=== PATIENT | male | born 1940 | race Caucasian/White ===

== ENCOUNTER 2017-06-03 12:25 | Inpatient (IN) | payer MEDICARE, MEDICAID, SELFPAY | END 2017-06-15 09:10 | disposition home or self-care (01) | DRG 414 | PROVIDERS: Admitting Provider Family Medicine; Family Provider Family Medicine; Visit Provider Family Medicine | DX: K80.63 Calculus of gallbladder and bile duct with acute cholecystitis with obstruction (principal); J18.9 Pneumonia, unspecified organism; I48.91 Unspecified atrial fibrillation; I49.5 Sick sinus syndrome; Z99.81 Dependence on supplemental oxygen; J44.0 Chronic obstructive pulmonary disease with (acute) lower respiratory infection; J44.9 Chronic obstructive pulmonary disease, unspecified; K42.9 Umbilical hernia without obstruction or gangrene; I10 Essential (primary) hypertension; Z95.0 Presence of cardiac pacemaker; I25.10 Atherosclerotic heart disease of native coronary artery without angina pectoris; Z87.891 Personal history of nicotine dependence | CPT/HCPCS: 49585; 47600; 43274; 36415; 71010; 71020; 74330; 76700; 80048; 80053; 80076; 82803; 85025; 85610; 87070; 87077; 87186; 87205; 88304; 94640; 94660; 94760; 97162; C2617; J0131; J1335; J2405; J2704; Q9967 ==

== ENCOUNTER → 2017-06-25 10:27 | Outpatient (CLI) | payer MEDICARE, MEDICAID, SELFPAY ==
[2017-06-25 10:52] LABS: Basophils # 0.2 K/mm3 (0-0.2); Basophils % 1.3 % (0.1-2.0); Eosinophils # 0.9 K/mm3 (0.0-0.4); Eosinophils % 5.6 % (0.1-12.0); Hematocrit 43.7 % (42.0-52.0); Hemoglobin 13.7 g/dL (14.1-18.0); Lymphocytes # 4.1 K/mm3 (0.7-4.5); Lymphocytes % 25.7 K/mm3 (10-50); Mean Corpuscular HGB Conc 31.3 g/dL (31.8-35.4); Mean Corpuscular Hemoglobin 27.2 pg (27.0-31.2); Mean Platelet Volume 9.2 fl (7.4-10.4); Monocytes # 0.8 K/mm3 (0.1-1.0); Monocytes % 4.8 % (1.7-9.3); Neutrophils # 9.9 K/mm3 (1.8-7.8); Neutrophils % 62.5 % (37.0-80.0); Platelet Count 264 K/mm3 (142-424); Red Blood Count 5.02 M/mm3 (4.60-6.20); Red Cell Distribution Width 18.8 % (11.5-17.5); White Blood Count 15.8 K/mm3 (4.8-10.8)
[2017-06-25 11:09] LABS: MANUAL DIFFERENTIAL MANUAL DIFFERENTIAL (MANUAL DIFF)
[2017-06-25 11:51] LABS: Eosinophils % 2 % (0-3); Lymphocytes % 13 % (10-50); Monocytes % 5 % (2-9); Neutrophils % 73 % (42-76); Total Cells Counted 100
[2017-06-25 11:52] LABS: Platelet Estimate Normal; RBC Morphology Normal
[2017-06-25 12:19] LABS: Alanine Aminotransferase 62 U/L (12-78); Albumin/Globulin Ratio 0.7 (1.1-1.8); Alkaline Phosphatase 206 U/L (46-116); Anion Gap 12.4 mEq/L (5-15); Bilirubin,Total 1.3 mg/dL (0.2-1.0); Blood Urea Nitrogen 15 mg/dL (7-18); Calcium 8.3 mg/dL (8.5-10.1); Carbon Dioxide 28 mmol/L (21.0-32.0); Chloride 102 mmol/L (98-107); Creatinine,Serum 1.28 mg/dL (0.70-1.30); Estimated Glomerular Filt Rate 55 ml/min (>60); GFR (African American) > 60 ML/MIN (>60); Globulin 4.3 gm/dl (1.3-3.2); Glucose 110 mg/dL (74-106); Sodium 137 mmol/L (136-145); Total Protein,Serum 7.3 gm/dL (6.4-8.2)
[2017-06-25 12:26] LABS: Potassium 5.4 mmoL/L (3.5-5.1)
[2017-06-25 12:27] LABS: Aspartate Amino Transferase 55 U/L (15-37)
== END ==
PROVIDERS: PCP Family Medicine; Visit Provider Surgery
DX: K80.10 Calculus of gallbladder with chronic cholecystitis without obstruction (principal); K80.50 Calculus of bile duct without cholangitis or cholecystitis without obstruction
CPT/HCPCS: 80053; 85007; 85025

== ENCOUNTER 2017-06-25 13:03 | Observation (INO) | payer MEDICARE, MEDICAID, SELFPAY ==
[2017-06-25 13:10] VITALS: BP 116/55; PULSE 72; RESP 16; TEMP 36.8; O2SAT 98; BMI 23.4
--- NOTE | 2017-06-25 13:36 | XR_ITS ---
XR chest CHP 2V HISTORY: ITS.REASON: COUGH ORDERING PHYSICIAN: Rakesh Watkins MD PATIENT AGE: 76 years COMPARISON: 06/12/2017 FINDINGS: Pacemaker device remains in place. There is normal heart size. There remains bilateral lower lobe opacification consistent with chronic changes with bilateral lower lobe pneumonia. This has shown some slight improvement. There remains bilateral pleural thickening in the lower lung zones. There is slight reversal of the lower thoracic kyphosis. IMPRESSION: Slight improvement in the bilateral lower lobe pneumonia with superimposed chronic pleural parenchymal changes
--- NOTE | 2017-06-25 14:41 | HMH.EDGENADL ---
ED Disposition Clinical Impression: Dehydration Disposition: Admitted as Observation Condition on Discharge: Fair Referrals: Sharan Tariq MD [Primary Care Provider] - Time of Disposition: 16:27 - Critical Care Critical Care Time: No Attestation: On 06/25/17, the high probability of a clinically significant, sudden or life threatening deterioration of the following system(s) required my full and direct attention, intervention and personal management. The time I documented below is in addition to time spent performing reported procedures but includes the following listed in this critical care notation. Medical Decision Making - Medical Records Medical records reviewed: Yes: I reviewed the patient's medical records. Vital Signs: 06/25/17 13:10 Temperature 98.2 F Temperature Source Oral Pulse Rate [Left Brachial] 72 Respiratory Rate 16 Blood Pressure [Left Arm] 116/55 Blood Pressure Mean [Left Arm] 75 Blood Pressure Source [Left Arm] Automatic Cuff Blood Pressure Position [Left Arm] Sitting 02 Sat by Pulse Oximetry 98 Oxygen Delivery Method Room Air - Lab Data Lab results reviewed: Yes: I reviewed the patient's lab results. Lab Results 06/25/17 13:18: Influenza Type A Ag Negative, Influenza Type B Ag Negative 06/25/17 15:38: WBC 16.1 H, RBC 4.79, Hgb 12.9 L, Hct 41.8 L, MCV 87.3, MCH 26.9 L, MCHC 30.8 L, RDW 19.0 H, Plt Count 226, MPV 9.3, Neut % (Auto) 59.5, Lymph % (Auto) 31.3, Lares % (Auto) 3.4, Eos % (Auto) 4.6, Baso % (Auto) 1.2, Neut # (Auto) 9.6 H, Lymph # (Auto) 5.0 H, Lares # (Auto) 0.6, Eos # (Auto) 0.8 H, Baso # (Auto) 0.2 06/25/17 15:38: Sodium 136, Potassium 4.3 D, Chloride 102, Carbon Dioxide 27, Anion Gap 11.3, BUN 17, Creatinine 1.39 H, Estimated Creat Clear 51, Estimated GFR 50 L, Est GFR ( Amer) 60, Glucose 134 H D, Calcium 8.2 L, Total Bilirubin 1.1 H, AST 38 H D, ALT 52, Alkaline Phosphatase 183 H, Total Protein 7.0, Albumin 2.7 L, Globulin 4.3 H, Albumin/Globulin Ratio 0.6 L 06/25/17 15:55: Specimen Source Right radial, O2 % Ra, ABG pH 7.41, ABG pCO2 37.4, ABG pO2 69.2 L, ABG HCO3 23.1, ABG Total CO2 24.2, ABG O2 Saturation 94, ABG Base Excess -1.6, Tera Test Acceptable Result diagrams: 06/25/17 15:38 06/25/17 15:38 Orders (Tests/Meds): ED MEDICATIONS Discontinued Medications Generic Name Dose Route Start Last Admin Trade Name Freq PRN Reason Stop Dose Admin Albuterol/Ipratropium 3 ml 06/25/17 14:50 Duoneb 3ml Neb IH 06/25/17 14:51 ONCE ONE Sodium Chloride 1,000 mls @ 999 mls/hr 06/25/17 15:00 06/25/17 16:22 Sod Chloride 0.9% 1000ml Bag IV 06/25/17 16:00 999 mls/hr .Q1H1M PATRICK Administration Methylprednisolone Sodium Succinate 125 mg 06/25/17 14:51 Solu-Medrol 125mg/2ml Vial IV 06/25/17 14:52 ONCE ONE ORDERS Category Date Time Status Rapid Influenza A&B Antigens Stat Lab 06/25/17 14:50 Ordered Arterial Blood Gas Stat RT 06/25/17 14:50 Ordered - Radiology Data #1 Image(s): Chest Image Reviewed: Yes I discussed the image results w/the radiologist - Huber Inquiry Pt receiving controlled substance: No Huber was queried for this patient: No General Adult HPI - General Chief complaint: Weakness Stated complaint: dizzy weak Time Seen by Provider: 06/25/17 14:40 Mode of Arrival: Wheelchair Source of Information: Patient Limitations: No Limitations Description of Symptoms (Recalled from ER Triage Doc. by RN): chilling,weakness, no strength since this morning - History of Present Illness HPI narrative: Pt has a history of COPD and is on Home O2, Nebs and inhalers. He had his GB removed laparascopically about 2 weeks ago and over the past 2 days he has been feeling weak and dizzy and having chills but no vomiting or diarrhea and no worsening abd pain MD complaint: weak, dizzy, SOA and no appetite Onset (ago): day(s) Location: chest, abdomen Radiation: non-radiation Severity: moderate Julissa
--- NOTE | 2017-06-25 14:45 | ED_ITS ---
ED Disposition Clinical Impression: Dehydration Disposition: Admitted as Observation Condition on Discharge: Fair Referrals: Sharan Tariq MD [Primary Care Provider] - Time of Disposition: 16:27 - Critical Care Critical Care Time: No Attestation: On 06/25/17, the high probability of a clinically significant, sudden or life threatening deterioration of the following system(s) required my full and direct attention, intervention and personal management. The time I documented below is in addition to time spent performing reported procedures but includes the following listed in this critical care notation. Medical Decision Making - Medical Records Medical records reviewed: Yes: I reviewed the patient's medical records. Vital Signs: 06/25/17 13:10 Temperature 98.2 F Temperature Source Oral Pulse Rate [Left Brachial] 72 Respiratory Rate 16 Blood Pressure [Left Arm] 116/55 Blood Pressure Mean [Left Arm] 75 Blood Pressure Source [Left Arm] Automatic Cuff Blood Pressure Position [Left Arm] Sitting 02 Sat by Pulse Oximetry 98 Oxygen Delivery Method Room Air - Lab Data Lab results reviewed: Yes: I reviewed the patient's lab results. Lab Results 06/25/17 13:18: Influenza Type A Ag Negative, Influenza Type B Ag Negative 06/25/17 15:38: WBC 16.1 H, RBC 4.79, Hgb 12.9 L, Hct 41.8 L, MCV 87.3, MCH 26.9 L, MCHC 30.8 L, RDW 19.0 H, Plt Count 226, MPV 9.3, Neut % (Auto) 59.5, Lymph % (Auto) 31.3, Ward % (Auto) 3.4, Eos % (Auto) 4.6, Baso % (Auto) 1.2, Neut # (Auto) 9.6 H, Lymph # (Auto) 5.0 H, Ward # (Auto) 0.6, Eos # (Auto) 0.8 H , Baso # (Auto) 0.2 06/25/17 15:38: Sodium 136, Potassium 4.3 D, Chloride 102, Carbon Dioxide 27, Anion Gap 11.3, BUN 17, Creatinine 1.39 H, Estimated Creat Clear 51, Estimated GFR 50 L, Est GFR ( Amer) 60, Glucose 134 H D, Calcium 8.2 L, Total Bilirubin 1.1 H, AST 38 H D, ALT 52, Alkaline Phosphatase 183 H, Total Protein 7.0, Albumin 2.7 L, Globulin 4.3 H, Albumin/Globulin Ratio 0.6 L 06/25/17 15:55: Specimen Source Right radial, O2 % Ra, ABG pH 7.41, ABG pCO2 37.4, ABG pO2 69.2 L, ABG HCO3 23.1, ABG Total CO2 24.2, ABG O2 Saturation 94, ABG Base Excess -1.6, Tera Test Acceptable Result diagrams: 06/25/17 15:38 06/25/17 15:38 Orders (Tests/Meds): ED MEDICATIONS Discontinued Medications Generic Name Dose Route Start Last Admin Trade Name Freq PRN Reason Stop Dose Admin Albuterol/Ipratropium 3 ml 06/25/17 14:50 Duoneb 3ml Neb IH 06/25/17 14:51 ONCE ONE Sodium Chloride 1,000 mls @ 999 mls/hr 06/25/17 15:00 06/25/17 16:22 Sod Chloride 0.9% 1000ml Bag IV 06/25/17 16:00 999 mls/hr .Q1H1M PATRICK Administration Methylprednisolone Sodium Succinate 125 mg 06/25/17 14:51 Solu-Medrol 125mg/2ml Vial IV 06/25/17 14:52 ONCE ONE ORDERS Category Date Time Status Rapid Influenza A&B Antigens Stat Lab 06/25/17 14:50 Ordered Arterial Blood Gas Stat RT 06/25/17 14:50 Ordered - Radiology Data #1 Image(s): Chest Image Reviewed: Yes I discussed the image results w/the radiologist - Huber Inquiry Pt receiving controlled substance: No Huber was queried for this patient: No General Adult HPI - General Chief complaint: Weakness Stated complaint: dizzy weak Time Seen by Provider: 06/25/17 14:40
--- NOTE | 2017-06-25 15:27 | PC.NURSE ---
metallurgical lab technician at bedside
[2017-06-25 15:48] LABS: Basophils # 0.2 K/mm3 (0-0.2); Basophils % 1.2 % (0.1-2.0); Eosinophils # 0.8 K/mm3 (0.0-0.4); Eosinophils % 4.6 % (0.1-12.0); Hematocrit 41.8 % (42.0-52.0); Hemoglobin 12.9 g/dL (14.1-18.0); Lymphocytes % 31.3 K/mm3 (10-50); Mean Corpuscular HGB Conc 30.8 g/dL (31.8-35.4); Mean Corpuscular Hemoglobin 26.9 pg (27.0-31.2); Mean Corpuscular Volume 87.3 fl (80-94); Mean Platelet Volume 9.3 fl (7.4-10.4); Monocytes # 0.6 K/mm3 (0.1-1.0); Monocytes % 3.4 % (1.7-9.3); Neutrophils # 9.6 K/mm3 (1.8-7.8); Neutrophils % 59.5 % (37.0-80.0); Platelet Count 226 K/mm3 (142-424); Red Blood Count 4.79 M/mm3 (4.60-6.20); White Blood Count 16.1 K/mm3 (4.8-10.8)
[2017-06-25 15:59] LABS: ABG Base Excess -1.6 mmol/L (-2.4-2.3); ABG HCO3 23.1 mmhg (22.0-26.0); ABG Oxygen Saturation 94 % (90-100); ABG PCO2 37.4 mmhg (35.0-45.0); ABG PH 7.41 mmol/L (7.35-7.45); ABG PO2 69.2 mmhg (80-100); ABG TCO2 24.2 mmhg (23-27)
[2017-06-25 16:01] LABS: Allen's Test Acceptable; Oxygen RA %; Source Right Radial
[2017-06-25 16:04] LABS: Alanine Aminotransferase 52 U/L (12-78); Albumin Level 2.7 gm/dL (3.4-5.0); Albumin/Globulin Ratio 0.6 (1.1-1.8); Alkaline Phosphatase 183 U/L (46-116); Anion Gap 11.3 mEq/L (5-15); Aspartate Amino Transferase 38 U/L (15-37); Bilirubin,Total 1.1 mg/dL (0.2-1.0); Blood Urea Nitrogen 17 mg/dL (7-18); Calcium 8.2 mg/dL (8.5-10.1); Carbon Dioxide 27 mmol/L (21.0-32.0); Chloride 102 mmol/L (98-107); Creatinine Clearance Estimated 51 mL/min (0-300); Creatinine,Serum 1.39 mg/dL (0.70-1.30); Estimated Glomerular Filt Rate 50 ml/min (>60); GFR (African American) 60 ML/MIN (>60); Globulin 4.3 gm/dl (1.3-3.2); Glucose 134 mg/dL (74-106); Potassium 4.3 mmoL/L (3.5-5.1); Sodium 136 mmol/L (136-145)
--- NOTE | 2017-06-25 16:32 | PC.NURSE ---
TO ADMIT PT FOR DEHYDRATION FOR OBS
[2017-06-25 17:22] VITALS: BP 142/80; PULSE 70; RESP 18; TEMP 36.8
[2017-06-25 18:30] VITALS: BMI 24.8
--- NOTE | 2017-06-25 19:30 | PC.NURSE ---
VERBAL REPORT GIVEN TO Tara COOPER RN
--- NOTE | 2017-06-25 19:30 | PC.NURSE ---
ADMISSION WAS BEING DONE AT 1800 HOURS HUY MADERA, MSN, RN
[2017-06-25 20:50] VITALS: BP 109/65; PULSE 70; RESP 16; TEMP 36.5; O2SAT 93
[2017-06-25 21:30] VITALS: O2SAT 93
[2017-06-26 00:15] VITALS: BP 118/68; PULSE 63; RESP 16; TEMP 36.6; O2SAT 96
--- NOTE | 2017-06-26 01:28 | PC.NURSE ---
MD NOTIFIED OF PT PAIN IN BACK AREA, AFTER ADMINISTRATION OF TYLENOL, PT REQUESTING STRONGER FOR PAIN. ORDER FOR HYDROCODONE 5 BID PRN. READ BACK AND VERIFIED.
[2017-06-26 04:29] VITALS: BP 114/63; PULSE 70; RESP 16; TEMP 36.6; O2SAT 100
[2017-06-26 07:21] LABS: Basophils % 0.1 % (0.1-2.0); Eosinophils % 0.1 % (0.1-12.0); Hematocrit 35.6 % (42.0-52.0); Lymphocytes # 2.2 K/mm3 (0.7-4.5); Mean Corpuscular HGB Conc 31.1 g/dL (31.8-35.4); Mean Corpuscular Hemoglobin 26.3 pg (27.0-31.2); Mean Corpuscular Volume 84.8 fl (80-94); Mean Platelet Volume 9.7 fl (7.4-10.4); Monocytes # 0.1 K/mm3 (0.1-1.0); Monocytes % 1.1 % (1.7-9.3); Neutrophils # 5.8 K/mm3 (1.8-7.8); Neutrophils % 71.7 % (37.0-80.0); Platelet Count 202 K/mm3 (142-424); Red Cell Distribution Width 18.5 % (11.5-17.5)
--- NOTE | 2017-06-26 07:22 | HMH.HPDC ---
General - General Admission date: 06/25/17 Discharge date: 06/26/17 *Admission Date: 06/25/17 *Chief complaint: Weakness *History of present illness: 76-year-old male with recent hospitalization for acute cholecystitis with choledocholithiasis and postoperative pneumonia presented to the emergency department with about 24 hours of lightheadedness upon standing and generalized weakness. In the emergency department workup revealed elevated BUN and creatinine above baseline compared to most recent hospitalization. Patient believes he is drinking enough fluids. Workup was otherwise unremarkable and patient was admitted for gentle IV fluid hydration. [facility] History Medical History: Reports:: Arrhythmia, Asthma, Chronic Obstructive Pulmonary Disease (COPD), Hypertension, Kidney Stones, Myocardial Infarction (YEARS AGO) Denies:: Cancer, Diabetes Mellitus Type 1, Diabetes Mellitus Type 2, MRSA Other Medical History: Reports: Arthritis Laterality Cases: Right: Arthroscopy Knee, Bilateral: Other Other Surgeries: Yes: Hernia Repair, Pacemaker Amputation: No Fractures: No - *Social History Educational Level: Attended Grade School Smoking Status: Former smoker Tobacco Type: cigarettes # Packs/Day (cigarettes): 1 Smoking End Date: years ago Alcohol Intake: former Substance Use Type: denies use Occupational Status: disabled Housing: house Household Members: spouse - Psychiatric History Expresses thoughts of harming self/others: None Suicide Plan Description: No Plan *Family Hx:: Hypertension, Asthma, Cancer, Diabetes Review of Systems - Review of Systems Review of systems:: pertinent systems reviewed and negative unless documented below - *Cardiovascular Reports lightheadedness, Denies shortness of breath - *Respiratory Reports chest congestion, Reports cough, Denies change in phlegm color - *Neurologic Reports weakness Exam Vital signs and Labs for Last 24 Hours: Temp Pulse Resp BP Pulse Ox 97.8 F 70 16 114/63 100 06/26/17 04:29 06/26/17 04:29 06/26/17 04:29 06/26/17 04:29 06/26/17 04:29 I & O for Last 24 hours: Intake & Output 06/23/17 06/24/17 06/25/17 06/26/17 11:59 11:59 11:59 11:59 Intake Total 1048 / 1048 Output Total 400 / 400 Balance 648 / 648 Hospital Course Hospital Course: She was admitted and started on NS at 100 mL's per hour. He was continued on this until the following morning. On the morning of the th patient states he felt back to his baseline. He was allowed to stay in the hospital for a few more hours to ambulate and make sure vital signs remained stable. He was discharged home after lunch. No follow-up is needed as I had just seen the patient 3 days prior. DS: Diagnosis - Discharge Diagnosis (1) Dehydration Status: Acute Discharge Meditcations Discharge Medications: Home Medications Medication Instructions Recorded Confirmed Type aspirin 81 mg chewable tablet 81 mg PO ONCE 06/25/17 06/25/17 History azithromycin 250 mg tablet 250 mg PO DIRECTED 06/25/17 06/25/17 History bisoprolol fumarate 10 mg tablet 10 mg PO BID 06/25/17 06/25/17 History bisoprolol fumarate 10 mg tablet 10 mg PO QDAY 06/25/17 06/25/17 History cetirizine 10 mg capsule 10 mg PO DAILY 06/25/17 06/25/17 History cyclobenzaprine 10 mg tablet 10 mg PO DAILY 06/25/17 06/25/17 History digoxin 250 mcg tablet 250 mcg PO ONCE 06/25/17 06/25/17 History omeprazole 20 mg capsule,delayed 20 mg PO ONCE 06/25/17 06/25/17 History release tamsulosin 0.4 mg capsule 0.4 mg PO QDAY 06/25/17 06/25/17 History Disposition Disposition: Home, Self-Care
--- NOTE | 2017-06-26 07:25 | P.SWB_ITS ---
General - General Admission date: 06/25/17 Discharge date: 06/26/17 *Admission Date: 06/25/17 *Chief complaint: Weakness *History of present illness: 76-year-old male with recent hospitalization for acute cholecystitis with choledocholithiasis and postoperative pneumonia presented to the emergency department with about 24 hours of lightheadedness upon standing and generalized weakness. In the emergency department workup revealed elevated BUN and creatinine above baseline compared to most recent hospitalization. Patient believes he is drinking enough fluids. Workup was otherwise unremarkable and patient was admitted for gentle IV fluid hydration. [facility] History Medical History: Reports:: Arrhythmia, Asthma, Chronic Obstructive Pulmonary Disease (COPD), Hypertension, Kidney Stones, Myocardial Infarction (YEARS AGO) Denies:: Cancer, Diabetes Mellitus Type 1, Diabetes Mellitus Type 2, MRSA Other Medical History: Reports: Arthritis Laterality Cases: Right: Arthroscopy Knee, Bilateral: Other Other Surgeries: Yes: Hernia Repair, Pacemaker Amputation: No Fractures: No - *Social History Educational Level: Attended Grade School Smoking Status: Former smoker Tobacco Type: cigarettes # Packs/Day (cigarettes): 1 Smoking End Date: years ago Alcohol Intake: former Substance Use Type: denies use Occupational Status: disabled Housing: house Household Members: spouse - Psychiatric History Expresses thoughts of harming self/others: None Suicide Plan Description: No Plan *Family Hx:: Hypertension, Asthma, Cancer, Diabetes Review of Systems - Review of Systems Review of systems:: pertinent systems reviewed and negative unless documented below - *Cardiovascular Reports lightheadedness, Denies shortness of breath - *Respiratory Reports chest congestion, Reports cough, Denies change in phlegm color - *Neurologic Reports weakness Exam Vital signs and Labs for Last 24 Hours: Temp Pulse Resp BP Pulse Ox 97.8 F 70 16 114/63 100 06/26/17 04:29 06/26/17 04:29 06/26/17 04:29 06/26/17 04:29 06/26/17 04:29 I & O for Last 24 hours: Intake & Output 06/23/17 06/24/17 06/25/17 06/26/17 11:59 11:59 11:59 11:59 Intake Total 1048 / 1048 Output Total 400 / 400 Balance 648 / 648 Hospital Course Hospital Course: She was admitted and started on NS at 100 mL's per hour. He was continued on this until the following morning. On the morning of the th patient states he felt back to his baseline. He was allowed to stay in the hospital for a few more hours to ambulate and make sure vital signs remained stable. He was discharged home after lunch. No follow-up is needed as I had just seen the patient 3 days prior. DS: Diagnosis - Discharge Diagnosis (1) Dehydration Status: Acute Discharge Meditcations Discharge Medications: Home Medications Medication Instructions Recorded Confirmed Type aspirin 81 mg chewable tablet 81 mg PO ONCE 06/25/17 06/25/17 History azithromycin 250 mg tablet 250 mg PO DIRECTED 06/25/17 06/25/17 History bisoprolol fumarate 10 mg tablet 10 mg PO BID 06/25/17 06/25/17 History bisoprolol fumarate 10 mg tablet 10 mg PO QDAY 06/25/17 06/25/17 History cetirizine 10 mg capsule 10 mg PO DAILY 06/25/17 06/25/17 History cyclobenzaprine 10 mg tablet 10 mg PO DAILY 06/25/17 06/25/17 History digoxin 250 mcg tablet 250 mcg PO ONCE
[2017-06-26 07:28] LABS: Anion Gap 15.6 mEq/L (5-15); Blood Urea Nitrogen 16 mg/dL (7-18); Carbon Dioxide 23 mmol/L (21.0-32.0); Chloride 106 mmol/L (98-107); Creatinine Clearance Estimated 65 mL/min (0-300); Creatinine,Serum 1.14 mg/dL (0.70-1.30); Estimated Glomerular Filt Rate 63 ml/min (>60); GFR (African American) 76 ML/MIN (>60); Glucose 150 mg/dL (74-106); Potassium 4.6 mmoL/L (3.5-5.1); Sodium 140 mmol/L (136-145)
[2017-06-26 07:35] VITALS: BP 133/74; PULSE 70; RESP 18; TEMP 36.4; O2SAT 94
[2017-06-26 08:56] LABS: Hemoglobin 11.1 g/dL (14.1-18.0)
[2017-06-26 08:57] LABS: White Blood Count 8.2 K/mm3 (4.8-10.8)
[2017-06-26 10:19] VITALS: RESP 18; O2SAT 94
== END 2017-06-26 11:25 | disposition home or self-care (01) ==
LOC: ER 16:28 → 2ND 16:52
PROVIDERS: Admitting Provider Family Medicine; Emergency Provider General Practice; Family Provider Family Medicine; PCP Family Medicine; Visit Provider Family Medicine
DX: E86.0 Dehydration (principal); I10 Essential (primary) hypertension; J44.9 Chronic obstructive pulmonary disease, unspecified
CPT/HCPCS: 36415; 80048; 80053; 82803; 85007; 85025; 87275; 87276; 99282; G0378

== ENCOUNTER 2017-07-27 12:27 | Emergency (ER) | payer MEDICARE, MEDICAID, SELFPAY ==
[2017-07-27 12:31] VITALS: BP 123/64; PULSE 70; RESP 22; TEMP 36.6; O2SAT 98; BMI 24.9
--- NOTE | 2017-07-27 12:49 | XR_ITS ---
XR knee LT 3V HISTORY: Pain following injury ITS.REASON: TWISTED KNEE ORDERING PHYSICIAN: Jesse Mascorro MD PATIENT AGE: 76 years COMPARISON: None FINDINGS: No fracture or dislocation. No lytic or blastic change. Normal mineralization. There are mild osteoarthritic changes involving the medial compartment and patellofemoral joint. Small suprapatellar effusion is suspected. IMPRESSION: 1. No acute fracture. 2. Mild osteoarthritis with small knee joint effusion
--- NOTE | 2017-07-27 13:22 | HMH.EDGENADL ---
ED Disposition Clinical Impression: Knee sprain Qualifiers: Encounter type: initial encounter Involved ligament of knee: unspecified ligament Laterality: left Qualified Code(s): S83.92XA - Sprain of unspecified site of left knee, initial encounter Disposition: Home, Self-Care Condition on Discharge: Good Instructions: DI for Knee Sprain, How to Use a Knee Immobilizer Additional Instructions: Continue using your walker. Use knee immobilizer as instructed. Follow-up with Dr. Hernandez in the office next week. Continue Lortab for pain. Referrals: Sharan Tariq MD [Primary Care Provider] - Héctor Hernandez MD [Staff Physician] - 3 days - Critical Care Critical Care Time: No Attestation: On 07/27/17, the high probability of a clinically significant, sudden or life threatening deterioration of the following system(s) required my full and direct attention, intervention and personal management. The time I documented below is in addition to time spent performing reported procedures but includes the following listed in this critical care notation. Medical Decision Making Vital Signs: 07/27/17 12:31 Temperature 97.9 F Temperature Source Oral Pulse Rate [Right Brachial] 70 Respiratory Rate 22 Blood Pressure [Right Arm] 123/64 Blood Pressure Mean [Right Arm] 83 Blood Pressure Source [Right Arm] Automatic Cuff Blood Pressure Position [Right Arm] Supine 02 Sat by Pulse Oximetry 98 Oxygen Delivery Method Room Air Orders (Tests/Meds): ED MEDICATIONS Discontinued Medications Generic Name Dose Route Start Last Admin Trade Name Freq PRN Reason Stop Dose Admin Hydrocodone Bitart/Acetaminophen 1 tab 07/27/17 13:31 Mer[place] 5/325mg Tablet PO 07/27/17 13:32 ONCE ONE ORDERS Category Date Time Status XR knee LT 3V Stat Exams 07/27/17 12:49 Taken - Radiology Data #1 Image(s): Knee Image Reviewed: Yes I reviewed the patient's radiology results Degenerative changes. No fracture seen. No definite effusion. - Huber Inquiry Pt receiving controlled substance: Yes Huber was queried for this patient: No (Chronically on Lortab, only 1 dose given) Risks and benefits of using a controlled substance: were not discussed with pt by me Comment: Given his usual dose of Lortab General Adult HPI - General Chief complaint: PAIN Stated complaint: KNEE PAIN Mode of Arrival: EMS Limitations: Physical Limitations Description of Symptoms (Recalled from ER Triage Doc. by RN): TWISTED LEG SUNDAY NIGHT AT 2230. PLACED KNEE BRACE ON IT THAT WAS GIVEN TO PT BY NEIGHBOR. STATES HE DIDN'T HAVE A RIDE TO HOSPITAL AND COULDN'T TAKE IT NO MORE (THE PAIN) . LEFT KNEE SLIGHTLY SWOLLEN +1 PEDAL PULSE IN LLE. DENIES PAIN WITH PALPATION. - History of Present Illness HPI narrative: The patient arrives by ambulance with left knee injury. He injured it 3 days ago when he twisted to get on the toilet. He felt a pop in his knee. His whole knee hurts. He says he has been walking with a walker. He is on Lortab chronically for pain, last took a dose 5-6 hours ago. Says he takes that for chronic chest pain. No numbness or tingling. He has been applying a neoprene sleeve to his knee. - Related Data Home Medications Medication Instructions Recorded Confirmed aspirin 81 mg chewable tablet 81 mg PO ONCE 06/25/17 07/27/17 azithromycin 250 mg tablet 250 mg PO DIRECTED 06/25/17 07/27/17 bisoprolol fumarate 10 mg tablet 10 mg PO BID 06/25/17 07/27/17 cetirizine 10 mg capsule 10 mg PO DAILY 06/25/17 06/25/17 cyclobenzaprine 10 mg tablet 10 mg PO DAILY 06/25/17 07/27/17 digoxin 250 mcg tablet 250 mcg PO ONCE 06/25/17 07/27/17 omeprazole 20 mg capsule,delayed 20 mg PO ONCE 06/25/17 07/27/17 release tamsulosin 0.4 mg capsule 0.4 mg PO QDAY 06/25/17 07/27/17 Allergies Allergy/AdvReac Type Severity Reaction Status Date / Time No Known Allergies Allergy Verified 07/27/17 12:44 [facility] History I have revi
[2017-07-27 14:11] VITALS: BP 158/73; PULSE 78; RESP 22; TEMP 36.8; O2SAT 97
== END 2017-07-27 14:13 | disposition home or self-care (01) ==
PROVIDERS: Emergency Provider Emergency Medicine; Family Provider Family Medicine; PCP Family Medicine
DX: S83.92XA Sprain of unspecified site of left knee, initial encounter (principal); X50.1XXA Overexertion from prolonged static or awkward postures, initial encounter; Y92.019 Unspecified place in single-family (private) house as the place of occurrence of the external cause; J44.9 Chronic obstructive pulmonary disease, unspecified; Z79.82 Long term (current) use of aspirin; I10 Essential (primary) hypertension; Z95.0 Presence of cardiac pacemaker; F17.210 Nicotine dependence, cigarettes, uncomplicated
CPT/HCPCS: 29505; 73562; 99281

== ENCOUNTER 2017-07-30 12:00 | Emergency (ER) | payer MEDICARE, MEDICAID, SELFPAY ==
--- NOTE | 2017-07-30 12:07 | XR_ITS ---
XR chest portable HISTORY: Cough and syncope ITS.REASON: syncope ORDERING PHYSICIAN: Marvin Cortez MD PATIENT AGE: 76 years COMPARISON: 06/25/2017 FINDINGS: The cardiomediastinal silhouette and pulmonary vascularity are within normal limits. Bipolar pacemaker is present from left subclavian approach No lobar consolidation or collapse. There is bilateral pleural thickening similar to the previous exam with blunting of the CP angles. No lobar consolidation or collapse. Chronic parenchymal changes are noted. Lower lobe pneumonia has improved. IMPRESSION: Chronic changes with chronic bilateral pleural thickening. No acute finding.
[2017-07-30 12:09] VITALS: BP 96/62; PULSE 71; RESP 24; TEMP 36.6; O2SAT 96; BMI 24.9
[2017-07-30 12:13] VITALS: PULSE 70
--- NOTE | 2017-07-30 12:16 | HMH.EDGENADL ---
ED Disposition Clinical Impression: Near syncope, Sinusitis Disposition: Home, Self-Care Condition on Discharge: Good Instructions: DI for Syncope in Adults (Fainting), DI for Syncope in Children (Fainting) Additional Instructions: call Dr. Tariq for recheck in office. return to ER if worse Referrals: Sharan Tariq MD [Primary Care Provider] - - Critical Care Critical Care Time: No Attestation: On , the high probability of a clinically significant, sudden or life threatening deterioration of the following system(s) required my full and direct attention, intervention and personal management. The time I documented below is in addition to time spent performing reported procedures but includes the following listed in this critical care notation. Medical Decision Making - Medical Records MR Comment: [id number] call out to patient pmd. [id number] discussed with removed since the patient's syncopal/near syncopal episode in the doctor's office today his white count finding is sinusitis and the rest of his workup he desired him to be discharged home for follow-up in his office. Vital Signs: 07/30/17 12:09 07/30/17 12:13 07/30/17 14:15 Temperature 97.8 F Temperature Source Axillary Pulse Rate 70 75 Pulse Rate [Right Radial] 71 Respiratory Rate 24 Blood Pressure [Right Arm] 96/62 Blood Pressure Mean [Right Arm] 73 Blood Pressure Source [Right Arm] Automatic Cuff Blood Pressure Position [Right Arm] Supine 02 Sat by Pulse Oximetry 96 Oxygen Delivery Method Nasal Cannula Oxygen Flow Rate (LPM) 2 - Lab Data Lab Results 07/30/17 12:15: WBC 15.7 H, RBC 5.45, Hgb 13.5 L, Hct 44.8, MCV 82.3, MCH 24.8 L, MCHC 30.1 L, RDW 16.3, Plt Count 240, MPV 9.1, Neut % (Auto) 57.7, Lymph % (Auto) 26.4, Butts % (Auto) 4.7, Eos % (Auto) 10.1, Baso % (Auto) 1.1, Neut # (Auto) 9.1 H, Lymph # (Auto) 4.2, Butts # (Auto) 0.8, Eos # (Auto) 1.6 H, Baso # (Auto) 0.2, Total Counted 100, Neutrophils % (Manual) 63, Lymphocytes % (Manual) 25, Monocytes % (Manual) 2, Eosinophils % (Manual) 10 H, Platelet Estimate Normal, Hypochromasia 1+ 07/30/17 12:15: Sodium 138, Potassium 4.3, Chloride 102, Carbon Dioxide 32, Anion Gap 8.3, BUN 14, Creatinine 1.33 H, Estimated Creat Clear 57, Estimated GFR 52 L, Est GFR ( Amer) 63, Glucose 110 H, Calcium 8.2 L, Total Bilirubin 0.5, AST 13 L, ALT 19, Alkaline Phosphatase 136 H, Troponin I < 0.02, Total Protein 7.0, Albumin 2.7 L, Globulin 4.3 H, Albumin/Globulin Ratio 0.6 L, Lipase 184 07/30/17 12:15: B-Natriuretic Peptide 63 07/30/17 12:15: Lactate Dehydrogenase 205 07/30/17 12:15: Digoxin 1.04 L 07/30/17 13:00: Urine Color Yellow, Urine Appearance Clear, Urine pH 6.5, Ur Specific [place] 1.020, Urine Protein 1+, Urine Glucose (UA) Negative, Urine Ketones Negative, Urine Blood Negative, Urine Nitrate Negative, Urine Bilirubin Negative, Urine Urobilinogen 1.0, Ur Leukocyte Esterase Negative, Urine RBC None, Urine WBC Occasional, Ur Squamous Epith Cells Occasional, Urine Bacteria 1+, Hyaline Casts Occasional Result diagrams: 07/30/17 12:15 07/30/17 12:15 Orders (Tests/Meds): ED MEDICATIONS Generic Name Dose Route Start Last Admin Trade Name Freq PRN Reason Stop Dose Admin Sodium Chloride 1,000 mls @ 999 mls/hr 07/30/17 14:45 Sod Chlor 0.9% 1000ml Bag IV 07/30/17 15:45 .Q1H1M PATRICK Discontinued Medications Generic Name Dose Route Start Last Admin Trade Name Freq PRN Reason Stop Dose Admin Albuterol/Ipratropium 3 ml 07/30/17 12:14 Duoneb 3ml Neb 07/30/17 12:15 ONCE ONE Albuterol/Ipratropium 3 ml 07/30/17 12:56 07/30/17 14:15 Duoneb 3ml Neb 07/30/17 12:57 3 ml ONCE ONE Administration Methylprednisolone Sodium Succinate 125 mg 07/30/17 12:15 07/30/17 13:32 Solu-Medrol 125mg/2ml Vial IV 07/30/17 12:16 125 mg ONCE ONE Administration Ondansetron HCl 4 mg 07/30/17 12:14 07/30/17 13:32 Zofran 4mg/2ml Vial IV 07/30/17 12:15 4
--- NOTE | 2017-07-30 12:19 | ED_ITS ---
ED Disposition Clinical Impression: Near syncope, Sinusitis Disposition: Home, Self-Care Condition on Discharge: Good Instructions: DI for Syncope in Adults (Fainting), DI for Syncope in Children ( Fainting) Additional Instructions: call Dr. Tariq for recheck in office. return to ER if worse Referrals: Sharan Tariq MD [Primary Care Provider] - - Critical Care Critical Care Time: No Attestation: On , the high probability of a clinically significant, sudden or life threatening deterioration of the following system(s) required my full and direct attention, intervention and personal management. The time I documented below is in addition to time spent performing reported procedures but includes the following listed in this critical care notation. Medical Decision Making - Medical Records MR Comment: [id number] call out to patient pmd. [phone] discussed with removed since the patient's syncopal/near syncopal episode in the doctor's office today his white count finding is sinusitis and the rest of his workup he desired him to be discharged home for follow-up in his office. Vital Signs: 07/30/17 12:09 07/30/17 12:13 07/30/17 14:15 Temperature 97.8 F Temperature Source Axillary Pulse Rate 70 75 Pulse Rate [Right Radial] 71 Respiratory Rate 24 Blood Pressure [Right Arm] 96/62 Blood Pressure Mean [Right Arm] 73 Blood Pressure Source [Right Arm] Automatic Cuff Blood Pressure Position [Right Arm] Supine 02 Sat by Pulse Oximetry 96 Oxygen Delivery Method Nasal Cannula Oxygen Flow Rate (LPM) 2 - Lab Data Lab Results 07/30/17 12:15: WBC 15.7 H, RBC 5.45, Hgb 13.5 L, Hct 44.8, MCV 82.3, MCH 24.8 L , MCHC 30.1 L, RDW 16.3, Plt Count 240, MPV 9.1, Neut % (Auto) 57.7, Lymph % ( Auto) 26.4, [place] % (Auto) 4.7, Eos % (Auto) 10.1, Baso % (Auto) 1.1, Neut # ( Auto) 9.1 H, Lymph # (Auto) 4.2, [place] # (Auto) 0.8, Eos # (Auto) 1.6 H, Baso # ( Auto) 0.2, Total Counted 100, Neutrophils % (Manual) 63, Lymphocytes % (Manual) 25, Monocytes % (Manual) 2, Eosinophils % (Manual) 10 H, Platelet Estimate Normal, Hypochromasia 1+ 07/30/17 12:15: Sodium 138, Potassium 4.3, Chloride 102, Carbon Dioxide 32, Anion Gap 8.3, BUN 14, Creatinine 1.33 H, Estimated Creat Clear 57, Estimated GFR 52 L, Est GFR ( Amer) 63, Glucose 110 H, Calcium 8.2 L, Total Bilirubin 0.5, AST 13 L, ALT 19, Alkaline Phosphatase 136 H, Troponin I < 0.02, Total Protein 7.0, Albumin 2.7 L, Globulin 4.3 H, Albumin/Globulin Ratio 0.6 L, Lipase 184 07/30/17 12:15: B-Natriuretic Peptide 63 07/30/17 12:15: Lactate Dehydrogenase 205 07/30/17 12:15: Digoxin 1.04 L 07/30/17 13:00: Urine Color Yellow, Urine Appearance Clear, Urine pH 6.5, Ur Specific [place] 1.020, Urine Protein 1+, Urine Glucose (UA) Negative, Urine Ketones Negative, Urine Blood Negative, Urine Nitrate Negative, Urine Bilirubin Negative, Urine Urobilinogen 1.0, Ur Leukocyte Esterase Negative, Urine RBC None , Urine WBC Occasional, Ur Squamous Epith Cells Occasional, Urine Bacteria 1+, Hyaline Casts Occasional Result diagrams: 07/30/17 12:15 07/30/17 12:15 Orders (Tests/Meds): ED MEDICATIONS Generic Name Dose Route Start Last Admin Trade Name Freq PRN Reason Stop Dose Admin Sodium Chloride 1,000 mls @ 999 mls/hr 07/30/17 14:45 Sod Chlor 0.9% 1000ml Bag IV 07/30/17 15:45 .[id number] PATRICK Discontinued Medications Generic Name Dose Route
--- NOTE | 2017-07-30 12:20 | CT_ITS ---
CT head/brain wo con HISTORY: ITS.REASON: near syncope, also states R hand dropping x month ORDERING PHYSICIAN: Marvin Cortez MD PATIENT AGE: 76 years COMPARISON: None TECHNIQUE: Axial images obtained without contrast. Brain and bone windows reviewed. FINDINGS: No midline shift, mass effect, intracranial hemorrhage, hydrocephalus, or extra-axial fluid collection is evident. There is mild atrophy with periventricular ischemic gliotic change from microvascular disease. The calvarium has an unremarkable appearance. No mastoid effusion. There is moderate mucosal thickening of the left maxillary sinus and left ethmoid sinuses. There is complete opacification of the left aspect of the frontal sinus. Lobular soft tissue density is present in the left nasal cavity and nasopharynx suggestive of polyposis. IMPRESSION: 1. Atrophy with chronic ischemic gliotic change. 2. Sinusitis on the left with suspected polyposis in the nasopharyngeal region.
[2017-07-30 12:33] LABS: Basophils # 0.2 K/mm3 (0-0.2); Basophils % 1.1 % (0.1-2.0); Eosinophils # 1.6 K/mm3 (0.0-0.4); Eosinophils % 10.1 % (0.1-12.0); Hematocrit 44.8 % (42.0-52.0); Hemoglobin 13.5 g/dL (14.1-18.0); Lymphocytes # 4.2 K/mm3 (0.7-4.5); Lymphocytes % 26.4 K/mm3 (10-50); Mean Corpuscular HGB Conc 30.1 g/dL (31.8-35.4); Mean Corpuscular Hemoglobin 24.8 pg (27.0-31.2); Mean Corpuscular Volume 82.3 fl (80-94); Mean Platelet Volume 9.1 fl (7.4-10.4); Monocytes # 0.8 K/mm3 (0.1-1.0); Monocytes % 4.7 % (1.7-9.3); Neutrophils # 9.1 K/mm3 (1.8-7.8); Neutrophils % 57.7 % (37.0-80.0); Platelet Count 240 K/mm3 (142-424); Red Blood Count 5.45 M/mm3 (4.60-6.20); Red Cell Distribution Width 16.3 % (11.5-17.5); White Blood Count 15.7 K/mm3 (4.8-10.8)
[2017-07-30 12:43] LABS: MANUAL DIFFERENTIAL MANUAL DIFFERENTIAL (MANUAL DIFF)
[2017-07-30 12:45] LABS: Troponin I < 0.02 ng/ml (0.00-0.06)
[2017-07-30 12:46] LABS: Alanine Aminotransferase 19 U/L (12-78); Albumin Level 2.7 gm/dL (3.4-5.0); Albumin/Globulin Ratio 0.6 (1.1-1.8); Alkaline Phosphatase 136 U/L (46-116); Anion Gap 8.3 mEq/L (5-15); Aspartate Amino Transferase 13 U/L (15-37); Bilirubin,Total 0.5 mg/dL (0.2-1.0); Blood Urea Nitrogen 14 mg/dL (7-18); Calcium 8.2 mg/dL (8.5-10.1); Carbon Dioxide 32 mmol/L (21.0-32.0); Chloride 102 mmol/L (98-107); Creatinine Clearance Estimated 57 mL/min (0-300); Creatinine,Serum 1.33 mg/dL (0.70-1.30); Estimated Glomerular Filt Rate 52 ml/min (>60); GFR (African American) 63 ML/MIN (>60); Globulin 4.3 gm/dl (1.3-3.2); Glucose 110 mg/dL (74-106); Lipase 184 u/L (73-393); Potassium 4.3 mmoL/L (3.5-5.1); Sodium 138 mmol/L (136-145)
[2017-07-30 12:47] LABS: Lactate Dehydrogenase 205 U/L (82-234)
[2017-07-30 12:49] LABS: Digoxin 1.04 ng/mL (1.15-2.56)
[2017-07-30 13:19] LABS: Microscopic, Urine URINE MICROSCOPIC (MICROSCOPIC)
[2017-07-30 13:20] LABS: Appearance,Urine CLEAR (Clear); Blood, Urine Negative (Negative); Color,Urine YELLOW (Yellow); Glucose,Urine (UA) Negative (Negative); Ketones,Urine Negative (Negative); Leukocyte Esterase,Urine Negative (Negative); Nitrate,Urine Negative (Negative); PH,Urine 6.5 (5.0-8.5); Protein,Urine 1+ (Negative)
[2017-07-30 13:23] LABS: Eosinophils % 10 % (0-3); Lymphocytes % 25 % (10-50); Monocytes % 2 % (2-9); Neutrophils % 63 % (42-76); Total Cells Counted 100
[2017-07-30 13:25] LABS: Hypochromasia 1+
[2017-07-30 13:26] LABS: Bilirubin,Urine Negative (Negative)
[2017-07-30 13:26] LABS: Platelet Estimate Normal
[2017-07-30 13:42] LABS: Bacteria,Urine 1+ /lpf; Hyaline Casts,Urine Occasional #/lpf (0); Squamous Epithelial Cell,Urine Occasional #/hpf (0-5); WBC,Urine Occasional #/hpf (0-3)
[2017-07-30 14:15] VITALS: PULSE 75; PULSE 80
[2017-07-30 15:44] VITALS: PULSE 70; PULSE 71
[2017-07-30 16:19] VITALS: BP 100/52; PULSE 88; RESP 20; TEMP 36.8; O2SAT 99
== END 2017-07-30 16:20 | disposition home or self-care (01) ==
PROVIDERS: Emergency Provider Emergency Medicine; Family Provider Family Medicine; PCP Family Medicine
DX: R55 Syncope and collapse (principal); J01.90 Acute sinusitis, unspecified; Z87.891 Personal history of nicotine dependence; J45.909 Unspecified asthma, uncomplicated; J44.9 Chronic obstructive pulmonary disease, unspecified; I10 Essential (primary) hypertension; Z95.0 Presence of cardiac pacemaker; I25.2 Old myocardial infarction; Z79.82 Long term (current) use of aspirin; Z79.899 Other long term (current) drug therapy; R06.02 Shortness of breath
CPT/HCPCS: 70450; 71045; 80053; 80162; 81001; 83615; 83690; 83880; 84484; 85007; 85025; 87040; 93005; 93041; 96365; 96367; 96375; 99283; J2405

== ENCOUNTER → 2017-09-10 13:22 | Outpatient (POV) | payer MEDICARE, MEDICAID, SELFPAY ==
[2017-09-10 14:20] LABS: Basophils # 0.2 K/mm3 (0-0.2); Basophils % 0.8 % (0.1-2.0); Eosinophils % 5.4 % (0.1-12.0); Hematocrit 40.7 % (42.0-52.0); Hemoglobin 11.9 g/dL (14.1-18.0); Lymphocytes # 4.1 K/mm3 (0.7-4.5); Lymphocytes % 22.9 K/mm3 (10-50); Mean Corpuscular HGB Conc 29.3 g/dL (31.8-35.4); Mean Corpuscular Hemoglobin 22.9 pg (27.0-31.2); Mean Corpuscular Volume 78.4 fl (80-94); Monocytes # 0.9 K/mm3 (0.1-1.0); Monocytes % 4.7 % (1.7-9.3); Neutrophils % 66.2 % (37.0-80.0); Platelet Count 187 K/mm3 (142-424); Red Blood Count 5.19 M/mm3 (4.60-6.20); Red Cell Distribution Width 15.7 % (11.5-17.5); White Blood Count 18.1 K/mm3 (4.8-10.8)
[2017-09-10 14:23] LABS: MANUAL DIFFERENTIAL MANUAL DIFFERENTIAL (MANUAL DIFF)
[2017-09-10 14:50] LABS: Eosinophils % 5 % (0-3); Lymphocytes % 27 % (10-50); Monocytes % 7 % (2-9); Neutrophils % 61 % (42-76); Platelet Estimate Normal; Total Cells Counted 100
[2017-09-10 14:51] LABS: Hypochromasia 2+; Microcytosis 1+
[2017-09-10 15:57] LABS: Alanine Aminotransferase 16 U/L (12-78); Albumin Level 2.7 gm/dL (3.4-5.0); Albumin/Globulin Ratio 0.7 (1.1-1.8); Alkaline Phosphatase 126 U/L (46-116); Amylase 58 U/L (25-125); Anion Gap 9.5 mEq/L (5-15); Bilirubin,Total 0.2 mg/dL (0.2-1.0); Blood Urea Nitrogen 11 mg/dL (7-18); Calcium 8.2 mg/dL (8.5-10.1); Carbon Dioxide 32 mmol/L (21.0-32.0); Chloride 102 mmol/L (98-107); Creatinine,Serum 1.16 mg/dL (0.70-1.30); Estimated Glomerular Filt Rate 61 ml/min (>60); GFR (African American) 74 ML/MIN (>60); Globulin 3.8 gm/dl (1.3-3.2); Glucose 97 mg/dL (74-106); Lipase 260 u/L (73-393); Potassium 5.5 mmoL/L (3.5-5.1); Sodium 138 mmol/L (136-145); Total Protein,Serum 6.5 gm/dL (6.4-8.2)
[2017-09-10 15:58] LABS: Aspartate Amino Transferase 21 U/L (15-37)
[2017-09-11 08:22] LABS: Iron 17 ug/dL (38-169); UIBC 355 ug/dL (111-343)
[2017-09-11 13:59] LABS: Iron Saturation 5 % (15-55)
== END ==
PROVIDERS: Visit Provider Nurse Practitioner Acute Care
DX: R10.13 Epigastric pain (principal); D64.9 Anemia, unspecified
CPT/HCPCS: 36415; 80053; 82150; 83550; 83690; 85007; 85025

== ENCOUNTER 2017-09-28 13:35 | Inpatient (IN) ==
[2017-09-28 14:28] LABS: Basophils # 0.2 K/mm3 (0-0.2); Basophils % 0.9 % (0.1-2.0); Eosinophils # 0.9 K/mm3 (0.0-0.4); Eosinophils % 4.4 % (0.1-12.0); Hematocrit 40.6 % (42.0-52.0); Hemoglobin 11.7 g/dL (14.1-18.0); Lymphocytes # 5.8 K/mm3 (0.7-4.5); Lymphocytes % 28.8 K/mm3 (10-50); Mean Corpuscular HGB Conc 28.9 g/dL (31.8-35.4); Mean Corpuscular Hemoglobin 22.1 pg (27.0-31.2); Mean Corpuscular Volume 76.3 fl (80-94); Mean Platelet Volume 7.8 fl (7.4-10.4); Monocytes # 0.8 K/mm3 (0.1-1.0); Monocytes % 4.1 % (1.7-9.3); Neutrophils # 12.5 K/mm3 (1.8-7.8); Neutrophils % 61.9 % (37.0-80.0); Platelet Count 305 K/mm3 (142-424); Red Blood Count 5.32 M/mm3 (4.60-6.20); Red Cell Distribution Width 16.9 % (11.5-17.5); White Blood Count 20.3 K/mm3 (4.8-10.8)
[2017-09-28 14:35] LABS: Anion Gap 8.1 mEq/L (5-15); Potassium 4.1 mmoL/L (3.5-5.1)
[2017-09-28 15:40] LABS: Eosinophils % 4 % (0-3); Lymphocytes % 35 % (10-50); Monocytes % 4 % (2-9); Neutrophils % 55 % (42-76); Nucleated Red Blood Cells 1; Total Cells Counted 100
[2017-09-29 06:53] LABS: Monocytes # 0.4 K/mm3 (0.1-1.0); Neutrophils % 84.6 % (37.0-80.0); Red Cell Distribution Width 16.6 % (11.5-17.5); White Blood Count 20.1 K/mm3 (4.8-10.8)
[2017-09-29 06:57] LABS: Anion Gap 10.9 mEq/L (5-15); Potassium 4.9 mmoL/L (3.5-5.1)
[2017-09-29 07:02] LABS: Basophils % 0.1 % (0.1-2.0); Eosinophils % 0.1 % (0.1-12.0); Hematocrit 36.9 % (42.0-52.0); Hemoglobin 10.5 g/dL (14.1-18.0); Lymphocytes # 2.7 K/mm3 (0.7-4.5); Lymphocytes % 13.4 K/mm3 (10-50); Mean Corpuscular HGB Conc 28.5 g/dL (31.8-35.4); Mean Corpuscular Hemoglobin 21.8 pg (27.0-31.2); Mean Corpuscular Volume 76.4 fl (80-94); Mean Platelet Volume 8.4 fl (7.4-10.4); Monocytes % 1.8 % (1.7-9.3); Platelet Count 285 K/mm3 (142-424); Red Blood Count 4.83 M/mm3 (4.60-6.20)
--- NOTE | 2017-09-29 07:12 | Progress Note ---
Internal Medicine - PN: Subj *Date: 09/29/17 *Time: 07:10 Interval history: Patient states he is feeling a little bit better this morning. X-ray yesterday showed right upper and lower lobe pneumonia. Patient has maintained his O2 sats above 90% on room air but nasal cannula was applied due to complaint of shortness of breath. Patient also complained of chest pain which is chronic and he has had a extensive cardiac workup and has nonobstructive coronary disease Exam Vital signs and Labs for Last 24 Hours: Temp Pulse Resp BP Pulse Ox 98.0 F 70 20 126/63 95 09/29/17 04:00 09/29/17 06:05 09/29/17 04:00 09/29/17 04:00 09/29/17 06:05 Laboratory Results - last 24 hr 09/28/17 14:21: WBC 20.3 H*, RBC 5.32, Hgb 11.7 L, Hct 40.6 L, MCV 76.3 L, MCH 22.1 L, MCHC 28.9 L, RDW 16.9, Plt Count 305, MPV 7.8, Neut % (Auto) 61.9, Lymph % (Auto) 28.8, [place] % (Auto) 4.1, Eos % (Auto) 4.4, Baso % (Auto) 0.9, Neut # (Auto) 12.5 H, Lymph # (Auto) 5.8 H, [place] # (Auto) 0.8, Eos # (Auto) 0.9 H, Baso # (Auto) 0.2, Total Counted 100, Neutrophils % (Manual) 55, Band Neutrophils % 1.0, Lymphocytes % (Manual) 35, Monocytes % (Manual) 4, Eosinophils % (Manual) 4 H, Metamyelocytes % 1.0, Nucleated RBCs 1, Platelet Estimate Normal, Microcytosis 1+ 09/28/17 14:21: Sodium 140, Potassium 4.1, Chloride 104, Carbon Dioxide 32, Anion Gap 8.1, BUN 12, Creatinine 1.29, Estimated Creat Clear 58, Estimated GFR 54 L, Est GFR ( Amer) 66, Glucose 116 H 09/28/17 14:21: Troponin I < 0.02 09/29/17 06:15: WBC 20.1 H*, RBC 4.83, Hgb 10.5 L D, Hct 36.9 L, MCV 76.4 L, MCH 21.8 L, MCHC 28.5 L, RDW 16.6, Plt Count 285, MPV 8.4, Neut % (Auto) 84.6 H , Lymph % (Auto) 13.4, [place] % (Auto) 1.8, Eos % (Auto) 0.1, Baso % (Auto) 0.1, Neut # (Auto) 17.0 H, Lymph # (Auto) 2.7, [place] # (Auto) 0.4, Eos # (Auto) 0.0, Baso # (Auto) 0.0 09/29/17 06:15: Sodium 139, Potassium 4.9, Chloride 103, Carbon Dioxide 30, Anion Gap 10.9, BUN 18 D, Creatinine 1.45 H, Estimated Creat Clear 52, Estimated GFR 47 L, Est GFR ( Amer) 57 L, Glucose 153 H D I & O for Last 24 hours: Intake & Output 09/26/17 09/27/17 09/28/17 09/29/17 11:59 11:59 11:59 11:59 Intake Total 270 / 270 Output Total 100 / 100 Balance 170 / 170 Weight 182 lb 8 oz Narrative: He appears comfortable laying in bed this morning. Lung exam reveals expiratory wheezes heard anteriorly with bibasilar rales. Heart has a regular rate and rhythm Assessment and Plan (1) COPD with exacerbation Current visit: Yes Status: Acute Category: Medical Code(s): J44.1 - Chronic obstructive pulmonary disease with (acute) exacerbation (2) Acute and chronic respiratory failure Current visit: Yes Status: Acute Category: Medical Code(s): J96.20 - Acute and chronic respiratory failure, unspecified whether with hypoxia or hypercapnia (3) Community acquired pneumonia Current visit: Yes Status: Acute Category: Medical Code(s): J18.9 - Pneumonia, unspecified organism - Assessment and plan all Dx Assessment and Plan for all problems:: 1. Sputum cultures been ordered 2. Rocephin and azithromycin for community acquired pneumonia 3. Continue steroids and nebs for COPD exacerbation 4. Home medications have been ordered
[2017-09-29 07:44] LABS: Lymphocytes % 11 % (10-50); Monocytes % 2 % (2-9); Neutrophils % 87 % (42-76); Ovalocytes 1+; Tear Drop Cells 1+; Total Cells Counted 100
--- NOTE | 2017-09-29 08:41 | Pharmacy Consult Notes ---
[facility] Pharmacy VTE Monitoring - Patient Demographics Admission date: 09/28/17 Report Date: 09/29/17 Time: 08:41 Allergies/Adverse Reactions: Patient Allergies No Known Allergies Allergy (Verified 08/10/17 09:41) Height: 1.83 m Weight: 82.781 kg Patient Problems: Current Active Problems COPD with exacerbation (Acute) Acute and chronic respiratory failure (Acute) Community acquired pneumonia (Acute) - VTE Risk Labs: VTE Related Lab Results Hgb 10.5 g/dL (14.1-18.0) L D 09/29/17 06:15 Hct 36.9 % (42.0-52.0) L 09/29/17 06:15 Plt Count 285 K/mm3 (142-424) 09/29/17 06:15 BUN 18 mg/dL (7-18) D 09/29/17 06:15 Creatinine 1.45 mg/dL (0.70-1.30) H 09/29/17 06:15 Estimated Creat Clear 52 mL/min (0-300) 09/29/17 06:15 VTE Score: 2 VTE Risk Level: Very Low Risk - Prophylaxis VTE Prophylaxis Ordered?: Yes Types of VTE Prophylaxis: TEDS Knee High Location of Applied Device: Bilateral Lower Extremeties - VTE Diagnosis Confirmed Treatment or plan recommended: Continue Current Treatment
[2017-09-30 07:09] LABS: Basophils % 0.1 % (0.1-2.0); Lymphocytes # 2.2 K/mm3 (0.7-4.5); Lymphocytes % 9.8 K/mm3 (10-50); Mean Corpuscular HGB Conc 29.3 g/dL (31.8-35.4); Mean Corpuscular Hemoglobin 22.1 pg (27.0-31.2); Mean Corpuscular Volume 75.3 fl (80-94); Mean Platelet Volume 8.5 fl (7.4-10.4); Monocytes # 0.7 K/mm3 (0.1-1.0); Monocytes % 3.1 % (1.7-9.3); Neutrophils # 19.1 K/mm3 (1.8-7.8); Neutrophils % 86.9 % (37.0-80.0); Platelet Count 276 K/mm3 (142-424); Red Blood Count 4.25 M/mm3 (4.60-6.20); Red Cell Distribution Width 16.7 % (11.5-17.5)
[2017-09-30 07:20] LABS: Hemoglobin 9.4 g/dL (14.1-18.0)
--- NOTE | 2017-09-30 08:23 | Progress Note ---
Internal Medicine - PN: Subj *Date: 09/30/17 *Time: 08:22 Interval history: Patient reports feeling better. Cough is less productive. He is feeling overall stronger. Exam Vital signs and Labs for Last 24 Hours: Temp Pulse Resp BP Pulse Ox 97.9 F 70 21 139/67 93 L 09/30/17 04:00 09/30/17 05:30 09/30/17 04:00 09/30/17 04:00 09/30/17 05:30 Laboratory Results - last 24 hr 09/30/17 06:14: WBC 22.0 H*, RBC 4.25 L, Hgb 9.4 L D, Hct 32.0 L, MCV 75.3 L, MCH 22.1 L, MCHC 29.3 L, RDW 16.7, Plt Count 276, MPV 8.5, Neut % (Auto) 86.9 H , Lymph % (Auto) 9.8 L, [place] % (Auto) 3.1, Eos % (Auto) 0.0 L, Baso % (Auto) 0.1 , Neut # (Auto) 19.1 H, Lymph # (Auto) 2.2, [place] # (Auto) 0.7, Eos # (Auto) 0.0 , Baso # (Auto) 0.0 I & O for Last 24 hours: Intake & Output 09/27/17 09/28/17 09/29/17 09/30/17 11:59 11:59 11:59 11:59 Intake Total 510 / 510 570 / 570 Output Total 100 / 100 350 / 350 Balance 410 / 410 220 / 220 Weight 182 lb 8 oz 185 lb 8 oz Microbiology Reports for the Last 24 Hours: Microbiology 09/29/17 06:58 Blood Blood Culture - Preliminary NO GROWTH AFTER 24 HOURS 09/29/17 06:58 Blood Blood Culture - Preliminary NO GROWTH AFTER 24 HOURS 09/29/17 10:30 Sputum - Expectorated Sputum Gram Stain - Final Narrative: He is awake and alert. Lungs continue to have expiratory wheezes and bibasilar rales but the rhonchi that were present on admission are absent Assessment and Plan (1) COPD with exacerbation Current visit: Yes Status: Acute Category: Medical Code(s): J44.1 - Chronic obstructive pulmonary disease with (acute) exacerbation (2) Acute and chronic respiratory failure Current visit: Yes Status: Acute Category: Medical Code(s): J96.20 - Acute and chronic respiratory failure, unspecified whether with hypoxia or hypercapnia (3) Community acquired pneumonia Current visit: Yes Status: Acute Category: Medical Code(s): J18.9 - Pneumonia, unspecified organism - Assessment and plan all Dx Assessment and Plan for all problems:: Patient's white count remains significantly elevated and this may be due to steroids but I am going to add vancomycin to his antibiotic regimen. Repeat CBC tomorrow
[2017-09-30 09:12] LABS: Lymphocytes % 12 % (10-50); Monocytes % 2 % (2-9); Neutrophils % 86 % (42-76); RBC Morphology Normal; Total Cells Counted 100
--- NOTE | 2017-09-30 09:18 | Pharmacy Consult Notes ---
- Pharmacy Consult Date: 09/30/17 Time: 09:16 Referring provider: DR. BLANCO Reason for Consult:: VANCOMYCIN DOSING Allergies and ADEs:: Allergies Allergy/AdvReac Type Severity Reaction Status Date / Time No Known Allergies Allergy Verified 08/10/17 09:41 Home Medications:: Home Medications Medication Instructions Recorded Confirmed Type bisoprolol fumarate 10 mg tablet 10 mg PO BID 06/25/17 09/29/17 History cetirizine 10 mg capsule 10 mg PO DAILY 06/25/17 09/29/17 History digoxin 250 mcg tablet 250 mcg PO DAILY 06/25/17 09/29/17 History omeprazole 20 mg capsule,delayed 40 mg PO DAILY 06/25/17 09/29/17 History release tamsulosin 0.4 mg capsule 0.4 mg PO DAILY 06/25/17 09/29/17 History hydrocodone 7.5 mg-acetaminophen 1 tab PO TIDP PRN 08/10/17 09/29/17 History 325 mg tablet ipratropium-albuterol 0.5 mg-3 3 ml INHALATION [id number] PRN 08/10/17 09/29/17 History mg(2.5 mg base)/3 mL nebulization soln nitroglycerin 0.4 mg sublingual 0.4 mg SUBLINGUAL Q5MINP PRN 08/10/17 09/29/17 History tablet umeclidinium 62.5 mcg/actuation 1 puff INHALATION DAILY 08/10/17 09/29/17 History blister powder for inhalation Aspirin [Aspirin 81mg EC Tab] 81 mg PO DAILY 09/29/17 09/29/17 History Azithromycin [Zithromax 250mg 250 mg PO MOWEFR 09/29/17 09/29/17 History tab] Furosemide [Furosemide 20mg Tab] 20 mg PO Q48H 09/29/17 09/29/17 History Height: 1.83 m Weight: 84.141 kg Laboratory Results:: Laboratory Results - last 24 hr 09/30/17 06:14: WBC 22.0 H*, RBC 4.25 L, Hgb 9.4 L D, Hct 32.0 L, MCV 75.3 L, MCH 22.1 L, MCHC 29.3 L, RDW 16.7, Plt Count 276, MPV 8.5, Neut % (Auto) 86.9 H , Lymph % (Auto) 9.8 L, [place] % (Auto) 3.1, Eos % (Auto) 0.0 L, Baso % (Auto) 0.1 , Neut # (Auto) 19.1 H, Lymph # (Auto) 2.2, [place] # (Auto) 0.7, Eos # (Auto) 0.0 , Baso # (Auto) 0.0, Total Counted 100, Neutrophils % (Manual) 86 H, Lymphocytes % (Manual) 12, Monocytes % (Manual) 2, Platelet Estimate Normal, RBC Morphology Normal Medical History: Reports:: Arrhythmia, Asthma, Chronic Obstructive Pulmonary Disease (COPD), Home Oxygen, Hypertension, Internal Pacemaker, Kidney Stones, Myocardial Infarction Denies:: Cancer, Diabetes Mellitus Type 1, Diabetes Mellitus Type 2, MRSA Assessment and Plan (1) COPD with exacerbation Current visit: Yes Status: Acute Category: Medical Code(s): J44.1 - Chronic obstructive pulmonary disease with (acute) exacerbation (2) Acute and chronic respiratory failure Current visit: Yes Status: Acute Category: Medical Code(s): J96.20 - Acute and chronic respiratory failure, unspecified whether with hypoxia or hypercapnia (3) Community acquired pneumonia Current visit: Yes Status: Acute Category: Medical Code(s): J18.9 - Pneumonia, unspecified organism - Assessment and plan all Dx Assessment and Plan for all problems:: BASED ON PATIENT FACTORS, RECOMMEND INITIATING VANCOMYCIN AT 1750MG IV Q24H. PHARMACY WILL OBTAIN A TROUGH LEVEL PRIOR TO THE FOURTH DOSE AND ADJUST APPROPRIATE. -NATALY HOLLEYD
[2017-10-01 06:29] LABS: Basophils % 0.1 % (0.1-2.0); Eosinophils % 0.1 % (0.1-12.0); Hematocrit 33.8 % (42.0-52.0); Hemoglobin 9.7 g/dL (14.1-18.0); Lymphocytes # 1.9 K/mm3 (0.7-4.5); Lymphocytes % 12.8 K/mm3 (10-50); Mean Corpuscular HGB Conc 28.7 g/dL (31.8-35.4); Mean Corpuscular Hemoglobin 21.8 pg (27.0-31.2); Mean Corpuscular Volume 76.1 fl (80-94); Mean Platelet Volume 8.6 fl (7.4-10.4); Monocytes # 0.6 K/mm3 (0.1-1.0); Monocytes % 3.8 % (1.7-9.3); Neutrophils # 12.6 K/mm3 (1.8-7.8); Neutrophils % 83.3 % (37.0-80.0); Platelet Count 305 K/mm3 (142-424); Red Blood Count 4.44 M/mm3 (4.60-6.20); Red Cell Distribution Width 16.9 % (11.5-17.5); White Blood Count 15.1 K/mm3 (4.8-10.8)
--- NOTE | 2017-10-01 07:11 | Progress Note ---
Internal Medicine - PN: Subj *Date: 10/01/17 *Time: 07:08 Interval history: Patient complains of not feeling bad but not feeling good either. He ambulated in the rios yesterday which caused him to not feel too bad but not feel too good either. He feels like his dyspnea has improved a little. Cough remains the same Exam Vital signs and Labs for Last 24 Hours: Temp Pulse Resp BP Pulse Ox 97.7 F 80 20 111/72 95 10/01/17 03:42 10/01/17 06:03 10/01/17 03:42 10/01/17 03:42 10/01/17 03:42 Laboratory Results - last 24 hr 09/30/17 06:14: WBC 22.0 H*, RBC 4.25 L, Hgb 9.4 L D, Hct 32.0 L, MCV 75.3 L, MCH 22.1 L, MCHC 29.3 L, RDW 16.7, Plt Count 276, MPV 8.5, Neut % (Auto) 86.9 H , Lymph % (Auto) 9.8 L, [place] % (Auto) 3.1, Eos % (Auto) 0.0 L, Baso % (Auto) 0.1 , Neut # (Auto) 19.1 H, Lymph # (Auto) 2.2, [place] # (Auto) 0.7, Eos # (Auto) 0.0 , Baso # (Auto) 0.0, Total Counted 100, Neutrophils % (Manual) 86 H, Lymphocytes % (Manual) 12, Monocytes % (Manual) 2, Platelet Estimate Normal, RBC Morphology Normal I & O for Last 24 hours: Intake & Output 09/28/17 09/29/17 09/30/17 10/01/17 11:59 11:59 11:59 11:59 Intake Total 510 / 510 1050 / 1050 2320 / 2320 Output Total 100 / 100 350 / 350 1600 / 1600 Balance 410 / 410 700 / 700 720 / 720 Weight 182 lb 8 oz 185 lb 8 oz 185 lb 7.986 oz Microbiology Reports for the Last 24 Hours: Microbiology 09/29/17 06:58 Blood Blood Culture - Preliminary NO GROWTH AFTER 24 HOURS 09/29/17 06:58 Blood Blood Culture - Preliminary NO GROWTH AFTER 24 HOURS Narrative: He is awake and alert. He has expiratory wheezes throughout with diminished breath sounds at the bases and bibasilar crackles Assessment and Plan (1) COPD with exacerbation Current visit: Yes Status: Acute Category: Medical Code(s): J44.1 - Chronic obstructive pulmonary disease with (acute) exacerbation (2) Acute and chronic respiratory failure Current visit: Yes Status: Acute Category: Medical Code(s): J96.20 - Acute and chronic respiratory failure, unspecified whether with hypoxia or hypercapnia (3) Community acquired pneumonia Current visit: Yes Status: Acute Category: Medical Code(s): J18.9 - Pneumonia, unspecified organism - Assessment and plan all Dx Assessment and Plan for all problems:: Add incentive spirometry. Encourage patient to Nickolas
[2017-10-01 07:43] LABS: Lymphocytes % 10 % (10-50); Monocytes % 3 % (2-9); Neutrophils % 84 % (42-76); Nucleated Red Blood Cells 1; RBC Morphology Normal; Total Cells Counted 100
--- NOTE | 2017-10-02 07:07 | Progress Note ---
Internal Medicine - PN: Subj *Date: 10/02/17 *Time: 07:05 Interval history: Patient has been ambulating. When asked how he feels he states "not too bad, but not too good". He continues to have a cough that is productive of brown sputum. Sputum culture is negative. Exam Vital signs and Labs for Last 24 Hours: Temp Pulse Resp BP Pulse Ox 97.5 F L 70 20 140/65 95 10/02/17 04:00 10/02/17 06:05 10/02/17 04:00 10/02/17 04:00 10/02/17 06:05 Laboratory Results - last 24 hr 10/01/17 06:06: WBC 15.1 H D, RBC 4.44 L, Hgb 9.7 L, Hct 33.8 L, MCV 76.1 L, MCH 21.8 L, MCHC 28.7 L, RDW 16.9, Plt Count 305, MPV 8.6, Neut % (Auto) 83.3 H , Lymph % (Auto) 12.8, [place] % (Auto) 3.8, Eos % (Auto) 0.1, Baso % (Auto) 0.1, Neut # (Auto) 12.6 H, Lymph # (Auto) 1.9, [place] # (Auto) 0.6, Eos # (Auto) 0.0, Baso # (Auto) 0.0, Total Counted 100, Neutrophils % (Manual) 84 H, Band Neutrophils % 1.0, Lymphocytes % (Manual) 10, Atypical Lymphs % 2.0, Monocytes % (Manual) 3, Nucleated RBCs 1, Platelet Estimate Normal, RBC Morphology Normal I & O for Last 24 hours: Intake & Output 09/29/17 09/30/17 10/01/17 10/02/17 11:59 11:59 11:59 11:59 Intake Total 510 / 510 1050 / 1050 2380 / 2380 1250 / 1250 Output Total 100 / 100 350 / 350 1600 / 1600 550 / 550 Balance 410 / 410 700 / 700 780 / 780 700 / 700 Weight 182 lb 8 oz 185 lb 8 oz 185 lb 7.986 oz 193 lb 2 oz Microbiology Reports for the Last 24 Hours: Microbiology 09/29/17 10:30 Sputum - Expectorated Sputum Gram Stain - Final 09/29/17 10:30 Sputum - Expectorated Sputum Sputum Culture - Final Normal Respiratory Bernadette 09/29/17 06:58 Blood Blood Culture - Preliminary NO GROWTH AFTER 48 HOURS 09/29/17 06:58 Blood Blood Culture - Preliminary NO GROWTH AFTER 48 HOURS Narrative: He is awake and alert. Lungs have diffuse expiratory wheezes, rales at the bases with right being more audible than left and scattered rhonchi. He does have improved aeration of the lungs. Heart has a regular rate and rhythm Assessment and Plan (1) COPD with exacerbation Current visit: Yes Status: Acute Category: Medical Code(s): J44.1 - Chronic obstructive pulmonary disease with (acute) exacerbation (2) Acute and chronic respiratory failure Current visit: Yes Status: Acute Category: Medical Code(s): J96.20 - Acute and chronic respiratory failure, unspecified whether with hypoxia or hypercapnia (3) Community acquired pneumonia Current visit: Yes Status: Acute Category: Medical Code(s): J18.9 - Pneumonia, unspecified organism - Assessment and plan all Dx Assessment and Plan for all problems:: Patient's white count finally decreased. I am going to keep him for 1 more day. Encourage ambulation. Encourage incentive spirometry.
[2017-10-02 07:39] LABS: Basophils % 0.1 % (0.1-2.0); Eosinophils % 0.1 % (0.1-12.0); Hematocrit 36.6 % (42.0-52.0); Hemoglobin 10.4 g/dL (14.1-18.0); Lymphocytes # 2.5 K/mm3 (0.7-4.5); Lymphocytes % 15.7 K/mm3 (10-50); Mean Corpuscular HGB Conc 28.4 g/dL (31.8-35.4); Mean Corpuscular Hemoglobin 21.9 pg (27.0-31.2); Mean Corpuscular Volume 77.1 fl (80-94); Mean Platelet Volume 7.7 fl (7.4-10.4); Monocytes # 0.6 K/mm3 (0.1-1.0); Monocytes % 3.4 % (1.7-9.3); Neutrophils # 12.8 K/mm3 (1.8-7.8); Neutrophils % 80.6 % (37.0-80.0); Platelet Count 277 K/mm3 (142-424); Red Blood Count 4.75 M/mm3 (4.60-6.20); Red Cell Distribution Width 16.7 % (11.5-17.5); White Blood Count 15.9 K/mm3 (4.8-10.8)
[2017-10-02 09:59] LABS: Lymphocytes % 10 % (10-50); Monocytes % 2 % (2-9); Neutrophils % 82 % (42-76); Total Cells Counted 100
[2017-10-02 10:03] LABS: Hypochromasia 1+
--- NOTE | 2017-10-02 11:55 | Progress Note ---
Internal Medicine - PN: Subj *Date: 10/02/17 *Time: 11:54 Exam Vital signs and Labs for Last 24 Hours: Temp Pulse Resp BP Pulse Ox 98.4 F 70 20 149/76 97 10/02/17 11:39 10/02/17 11:39 10/02/17 11:39 10/02/17 11:39 10/02/17 11:39 Laboratory Results - last 24 hr 10/02/17 06:24: WBC 15.9 H, RBC 4.75, Hgb 10.4 L, Hct 36.6 L, MCV 77.1 L, MCH 21.9 L, MCHC 28.4 L, RDW 16.7, Plt Count 277, MPV 7.7, Neut % (Auto) 80.6 H, Lymph % (Auto) 15.7, [place] % (Auto) 3.4, Eos % (Auto) 0.1, Baso % (Auto) 0.1, Neut # (Auto) 12.8 H, Lymph # (Auto) 2.5, [place] # (Auto) 0.6, Eos # (Auto) 0.0, Baso # (Auto) 0.0, Total Counted 100, Neutrophils % (Manual) 82 H, Band Neutrophils % 2.0, Lymphocytes % (Manual) 10, Atypical Lymphs % 4.0, Monocytes % (Manual) 2, Platelet Estimate Normal, Hypochromasia 1+, Microcytosis 1+ I & O for Last 24 hours: Intake & Output 09/29/17 09/30/17 10/01/17 10/02/17 23:59 23:59 23:59 23:59 Intake Total 300 / 300 2120 / 2120 2530 / 2530 730 / 730 Output Total 250 / 250 950 / 950 1150 / 1150 400 / 400 Balance 50 / 50 1170 / 1170 1380 / 1380 330 / 330 Weight 82.781 kg 84.141 kg 86.296 kg 87.6 kg Microbiology Reports for the Last 24 Hours: Microbiology 09/29/17 06:58 Blood Blood Culture - Preliminary NO GROWTH AFTER 72 HOURS 09/29/17 06:58 Blood Blood Culture - Preliminary NO GROWTH AFTER 72 HOURS Assessment and Plan (1) COPD with exacerbation Current visit: Yes Status: Acute Category: Medical Code(s): J44.1 - Chronic obstructive pulmonary disease with (acute) exacerbation (2) Acute and chronic respiratory failure Current visit: Yes Status: Acute Category: Medical Code(s): J96.20 - Acute and chronic respiratory failure, unspecified whether with hypoxia or hypercapnia (3) Community acquired pneumonia Current visit: Yes Status: Acute Category: Medical Code(s): J18.9 - Pneumonia, unspecified organism The patient's infection will respond to the chosen ABx?: Yes Is the patient receiving the right drug, dose, and route?: Yes Could a more targeted ABx be ordered?: No (WBC DECREASING)
[2017-10-03 07:18] LABS: Basophils % 0.2 % (0.1-2.0); Hematocrit 35.7 % (42.0-52.0); Hemoglobin 10.2 g/dL (14.1-18.0); Lymphocytes # 2.8 K/mm3 (0.7-4.5); Mean Corpuscular HGB Conc 28.7 g/dL (31.8-35.4); Mean Corpuscular Hemoglobin 21.8 pg (27.0-31.2); Mean Platelet Volume 8.6 fl (7.4-10.4); Monocytes # 0.7 K/mm3 (0.1-1.0); Monocytes % 4.4 % (1.7-9.3); Neutrophils # 12.8 K/mm3 (1.8-7.8); Neutrophils % 78.3 % (37.0-80.0); Platelet Count 333 K/mm3 (142-424); Red Blood Count 4.69 M/mm3 (4.60-6.20); Red Cell Distribution Width 16.7 % (11.5-17.5); White Blood Count 16.3 K/mm3 (4.8-10.8)
[2017-10-03 07:37] VITALS: BP 114/62
--- NOTE | 2017-10-03 08:00 | Discharge Summary ---
General - General Admission date: 09/28/17 Discharge date: 10/03/17 HPI HPI: 76-year-old male with severe COPD was admitted from the office on September 28 with what was believed to be a severe COPD exacerbation. However on workup after admission he was found to have bilateral lobe pneumonia. Patient was started on broad-spectrum antibiotic coverage due to history of Pseudomonas. White blood cell count was elevated to 20,000 on admission and remained elevated throughout hospitalization. Vancomycin was added after 48 hours. Patient's lung exam was significant for expiratory wheezes, rhonchi and basilar rales. During hospitalization along with antibiotics patient was continued on Solu- Medrol and duo nebs as well as his home medications. Lung exam improved by having better aeration but otherwise rhonchi and wheezing remained. This is the patient's baseline lung examination. Patient improved a little each day and on the day of discharge had been ambulating in the hallways for several days without difficulty. He was not requiring oxygen. His cough with sputum production had returned to its baseline. Sputum and blood cultures were negative. Patient was discharged home. He will continue 5 days of doxycycline as an outpatient. He may also resume home health services which she was receiving prior to admission Hospital Course Hospital Course: See HPI Objective Vital signs: Temp Pulse Resp BP Pulse Ox 98.7 F 70 20 114/62 93 L 10/03/17 07:35 10/03/17 07:35 10/03/17 07:35 10/03/17 07:35 10/03/17 07:35 Results Labs on day of discharge: Labs from last 24 hours 10/03/17 10/02/17 06:40 06:24 WBC 16.3 H RBC 4.69 Hgb 10.2 L Hct 35.7 L MCV 76.0 L MCH 21.8 L MCHC 28.7 L RDW 16.7 Plt Count 333 MPV 8.6 Neut % (Auto) 78.3 Lymph % (Auto) 17.0 Teller % (Auto) 4.4 Eos % (Auto) 0.0 L Baso % (Auto) 0.2 Neut # (Auto) 12.8 H Lymph # (Auto) 2.8 Teller # (Auto) 0.7 Eos # (Auto) 0.0 Baso # (Auto) 0.0 Total Counted 100 Neutrophils % (Manual) 82 H Band Neutrophils % 2.0 Lymphocytes % (Manual) 10 Atypical Lymphs % 4.0 Monocytes % (Manual) 2 Platelet Estimate Normal Hypochromasia 1+ Microcytosis 1+ Preliminary micro results at discharge 09/29/17 06:58 Blood Culture - Preliminary Blood NO GROWTH AFTER 4 DAYS 09/29/17 06:58 Blood Culture - Preliminary Blood NO GROWTH AFTER 4 DAYS DS: Diagnosis - Discharge Diagnosis (1) Community acquired pneumonia Status: Acute (2) COPD with exacerbation Status: Acute (3) Acute and chronic respiratory failure Status: Acute Discharge Plan - Patient Discharge Instructions ACTIVITY: Continue current activity DIET: continue same diet - Follow up Plan Follow up with: Sharan Tariq MD [Primary Care Provider] - 10/08/17 Disposition: Home, Self-Assisted Medications: Home Medications Medication Instructions Recorded Confirmed Type bisoprolol fumarate 10 mg tablet 10 mg PO BID 06/25/17 09/29/17 History cetirizine 10 mg capsule 10 mg PO DAILY 06/25/17 09/29/17 History digoxin 250 mcg tablet 250 mcg PO DAILY 06/25/17 09/29/17 History omeprazole 20 mg capsule,delayed 40 mg PO DAILY 06/25/17 09/29/17 History release tamsulosin 0.4 mg capsule 0.4 mg PO DAILY 06/25/17 09/29/17 History hydrocodone 7.5 mg-acetaminophen 1 tab PO TIDP PRN 08/10/17 09/29/17 History 325 mg tablet ipratropium-albuterol 0.5 mg-3 3 ml INHALATION [id number] PRN 08/10/17 09/29/17 History mg(2.5 mg base)/3 mL nebulization soln nitroglycerin 0.4 mg sublingual 0.4 mg SUBLINGUAL Q5MINP PRN 08/10/17 09/29/17 History tablet Aspirin [Aspirin 81mg EC Tab] 81 mg PO DAILY 09/29/17 09/29/17 History Azithromycin [Zithromax 250mg 250 mg PO MOWEFR 09/29/17 09/29/17 History tab] Furosemide [Furosemide 20mg Tab] 20 mg PO Q48H 09/29/17 09/29/17 History Umeclidinium Brm/Vilanterol Tr 1 puff IH DAILY 10/01/17 10/01/17 History [Anoro Ellipta 62.5-25 Mcg INH] Prescriptions/Medication Reconciliation: New Doxycycline Hyclate 100 mg PO BID #10 cap Continue digoxin 250 mcg tablet 250 mcg PO DAILY cetirizine 10 mg capsule 10 mg PO DAILY tamsulosin 0.4 mg capsule 0.4 mg PO DAILY omeprazole 20 mg capsule,delayed release 40 mg PO DAILY bisoprolol fumarate 10 mg tablet 10 mg PO BID nitroglycerin 0.4 mg sublingual tablet 0.4 mg SUBLINGUAL Q5MINP PRN PRN Reason: Angina ipratropium-albuterol 0.5 mg-3 mg(2.5 mg base)/3 mL nebulization soln 3 ml INHALATION [id number] PRN PRN Reason: Shortness Of Breath hydrocodone 7.5 mg-acetaminophen 325 mg tablet 1 tab PO TIDP PRN PRN Reason: PAIN Furosemide [Furosemide 20mg Tab] 20 mg PO Q48H Aspirin [Aspirin 81mg EC Tab] 81 mg PO DAILY Umeclidinium Brm/Vilanterol Tr [Anoro Ellipta 62.5-25 Mcg INH] 1 puff IH DAILY Azithromycin [Zithromax 250mg tab] 250 mg PO MOWEFR
[2017-10-03 09:52] LABS: Hypochromasia 2+; Lymphocytes % 11 % (10-50); Monocytes % 4 % (2-9); Neutrophils % 82 % (42-76); Total Cells Counted 100
== END 2017-10-03 09:45 | disposition home health service (06) ==
LOC: 2ND → OBSVTOIN 13:35
PROVIDERS: ADMIT Family Medicine; ATTEND Family Medicine

== ENCOUNTER 2017-10-17 17:31 | Observation (INO) ==
[2017-10-17 18:21] LABS: Alanine Aminotransferase 19 U/L (12-78); Albumin Level 2.4 gm/dL (3.4-5.0); Albumin/Globulin Ratio 0.7 (1.1-1.8); Alkaline Phosphatase 91 U/L (46-116); Anion Gap 10.6 mEq/L (5-15); Aspartate Amino Transferase 17 U/L (15-37); Bilirubin,Total 0.6 mg/dL (0.2-1.0); Blood Urea Nitrogen 22 mg/dL (7-18); Calcium 7.9 mg/dL (8.5-10.1); Carbon Dioxide 30 mmol/L (21.0-32.0); Chloride 102 mmol/L (98-107); Creatine Kinase 18 U/L (39-308); Globulin 3.4 gm/dl (1.3-3.2); Glucose 178 mg/dL (74-106); Potassium 4.6 mmoL/L (3.5-5.1); Sodium 138 mmol/L (136-145); Total Protein,Serum 5.8 gm/dL (6.4-8.2)
--- NOTE | 2017-10-17 18:27 | Emergency Department Note ---
ED Disposition Clinical Impression: Paroxysmal atrial fibrillation with RVR, Pneumonia, COPD (chronic obstructive pulmonary disease) Disposition: Still a Patient Condition on Discharge: Fair Referrals: Sharan Tariq MD [Primary Care Provider] - - Critical Care Critical Care Time: No Attestation: On 10/17/17, the high probability of a clinically significant, sudden or life threatening deterioration of the following system(s) required my full and direct attention, intervention and personal management. The time I documented below is in addition to time spent performing reported procedures but includes the following listed in this critical care notation. Medical Decision Making - Huber Inquiry Pt receiving controlled substance: No Huber was queried for this patient: No Vital Signs: 10/17/17 17:32 10/17/17 17:58 10/17/17 18:00 Temperature 98.3 F Temperature Source Oral Pulse Rate [Apical] 155 H 154 H Respiratory Rate 24 26 H Blood Pressure [Right Arm] 99/59 103/59 Blood Pressure Mean [Right Arm] 72 73 Blood Pressure Source [Right Arm] Automatic Cuff Automatic Cuff Blood Pressure Position [Right Arm] Sitting Sitting 02 Sat by Pulse Oximetry 96 97 99 Oxygen Delivery Method Room Air Nasal Cannula Nasal Cannula Oxygen Flow Rate (LPM) 2 10/17/17 18:02 10/17/17 18:43 Temperature Temperature Source Pulse Rate [Apical] 148 H 120 H Respiratory Rate 24 24 Blood Pressure [Right Arm] 98/74 124/69 Blood Pressure Mean [Right Arm] 82 87 Blood Pressure Source [Right Arm] Automatic Cuff Automatic Cuff Blood Pressure Position [Right Arm] Sitting Sitting 02 Sat by Pulse Oximetry 98 99 Oxygen Delivery Method Nasal Cannula Nasal Cannula Oxygen Flow Rate (LPM) 3 2 - Lab Data Lab Results 10/17/17 17:45: WBC 14.5 H, RBC 5.35, Hgb 11.4 L, Hct 39.1 L, MCV 73.0 L, MCH 21.3 L, MCHC 29.2 L, RDW 18.8 H, Plt Count 115 L, MPV 9.4, Neut % (Auto) 75.0, Lymph % (Auto) 18.1, [place] % (Auto) 3.4, Eos % (Auto) 3.1, Baso % (Auto) 0.4, Neut # (Auto) 10.9 H, Lymph # (Auto) 2.6, [place] # (Auto) 0.5, Eos # (Auto) 0.5 H , Baso # (Auto) 0.1 10/17/17 17:45: Sodium 138, Potassium 4.6, Chloride 102, Carbon Dioxide 30, Anion Gap 10.6, BUN 22 H, Creatinine 1.28, Estimated Creat Clear 58, Estimated GFR 55 L, Est GFR ( Amer) 66, Glucose 178 H, Calcium 7.9 L, Total Bilirubin 0.6, AST 17, ALT 19, Alkaline Phosphatase 91, Total Creatine Kinase 18 L, CK-MB (CK-2) < 0.5, CK-MB (CK-2) Rel Index 2.8, Troponin I < 0.02, Total Protein 5.8 L, Albumin 2.4 L, Globulin 3.4 H, Albumin/Globulin Ratio 0.7 L 10/17/17 17:45: Digoxin 2.43 10/17/17 17:45: PT 10.5, INR 0.97, APTT 24.1 Result diagrams: 10/17/17 17:45 10/17/17 17:45 Orders (Tests/Meds): ED MEDICATIONS Generic Name Dose Route Start Last Admin Trade Name Freq PRN Reason Stop Dose Admin Diltiazem HCl 100 mg/ Sodium 100 mls @ 5 mls/hr 10/17/17 18:01 10/17/17 17:56 Chloride IV 11/16/17 18:00 5 mls/hr .Q20H PATRICK Administration Ceftriaxone Sodium 1 gm/ 50 mls @ 100 mls/hr 10/17/17 19:09 Sodium Chloride IV 10/17/17 19:38 ONCE ONE Protocol Discontinued Medications Generic Name Dose Route Start Last Admin Trade Name Freq PRN Reason Stop Dose Admin Diltiazem HCl 5 mg 10/17/17 17:45 10/17/17 17:40 Cardizem 25mg/5ml Vial IV 10/17/17 17:46 5 mg ONCE ONE Administration Diltiazem HCl 240 mg 10/17/17 19:09 Cardizem Cd 120mg Capsule PO 10/17/17 19:10 ONCE ONE ORDERS Category Date Time Status XR chest portable Stat Exams 10/17/17 17:39 Taken - Radiology Data #2 Image Reviewed: Yes I reviewed the patient's radiology image Preliminary Findings: Abnormal Chest x-ray shows chronic bibasilar change cannot exclude. - ECG Data Tracing #1 Atrial fibrillation's with rapid ventricular response 151/min, nonspecific ST and T-wave changes. ECG initial impression date: 10/17/17 ECG initial impression time: 18:29 Tracing #2 second EKG paced rhythm EKG 70/min ECG initial impression date: 10/17/17 ECG initial impression time: 19:12 Medical Decision Narrative: After increasing the Cardizem drip to 10 mg an hour he converted with a paced rhythm 70/min with a blood pressure is 110/60. Contacted Dr. Comer who advised to start the patient on Cardizem 40 p.o.. White count was elevated at 14,000 with bibasilar changes in both lungs pneumonia cannot be completely excluded. [address] Leach date admit the patient for pneumonia protocol and continue monitoring his cardiac status. Weakness HPI - General Chief complaint: Chest Pain Stated complaint: SOA, Chest pain Time Seen by Provider: 10/17/17 17:35 Mode of Arrival: EMS Limitations: No Limitations Description of Symptoms (Recalled from ER Triage Doc. by RN): Pt reports he has felt his heart is racing since waking up this morning. Pt reports SOA and states he woke up soaked with sweat this morning. Pt reports weakness. - History of Present Illness HPI Narrative: 76 years old white male with history of COPD and status post pacemaker placement by Dr. Comer. The patient has chronic chest pain retrosternal sharp in nature. Today at 8 am he developed weakness diaphoresis and palpitations. He called ambulance and upon arrival he was found to be in atrial fibrillation rapid ventricular response. He brought to the ED he has heart rate was 155 irregular. I started him on a Cardizem drip. MD Complaint: generalized weakness Onset (ago): hour(s) (10 hours) Duration: constant Location: generalized Migration: none Relieving factors: none Exacerbating factors: none Associated symptoms: chest pain, diaphoresis, other (he has cough. ) - Related Data Home Medications Medication Instructions Recorded Confirmed bisoprolol fumarate 10 mg tablet 10 mg PO BID 06/25/17 09/29/17 cetirizine 10 mg capsule 10 mg PO DAILY 06/25/17 09/29/17 digoxin 250 mcg tablet 250 mcg PO DAILY 06/25/17 09/29/17 omeprazole 20 mg capsule,delayed 40 mg PO DAILY 06/25/17 10/17/17 release tamsulosin 0.4 mg capsule 0.4 mg PO DAILY 06/25/17 10/17/17 hydrocodone 7.5 mg-acetaminophen 1 tab PO TIDP PRN 08/10/17 10/17/17 325 mg tablet ipratropium-albuterol 0.5 mg-3 3 ml INHALATION [id number] PRN 08/10/17 09/29/17 mg(2.5 mg base)/3 mL nebulization soln nitroglycerin 0.4 mg sublingual 0.4 mg SUBLINGUAL Q5MINP PRN 08/10/17 09/29/17 tablet Aspirin [Aspirin 81mg EC Tab] 81 mg PO DAILY 09/29/17 10/17/17 Azithromycin [Zithromax 250mg 250 mg PO MOWEFR 09/29/17 09/29/17 tab] Furosemide [Furosemide 20mg Tab] 20 mg PO Q48H 09/29/17 09/29/17 Umeclidinium Brm/Vilanterol Tr 1 puff IH DAILY 10/01/17 10/01/17 [Anoro Ellipta 62.5-25 Mcg INH] Previous Rx's Medication Instructions Recorded Doxycycline Hyclate 100 mg PO BID #10 cap 10/03/17 Allergies Allergy/AdvReac Type Severity Reaction Status Date / Time No Known Allergies Allergy Verified 08/10/17 09:41 [facility] History I have reviewed the patient's past medical history: Yes Medical History: Reports:: Arrhythmia, Asthma, Chronic Obstructive Pulmonary Disease (COPD), Home Oxygen, Hypertension, Internal Pacemaker, Kidney Stones, Myocardial Infarction Denies:: Cancer, Diabetes Mellitus Type 1, Diabetes Mellitus Type 2, MRSA Other Medical History: Reports: Arthritis Comment: Heart disease, heart attack, rheumatoid arthritis Laterality Cases: Right: Arthroscopy Knee, Bilateral: Other Other Surgeries: Yes: Hernia Repair, Pacemaker Amputation: No Fractures: No - Social History Smoking Status: Former smoker Tobacco Type: cigarettes # Packs/Day (cigarettes): 1 Alcohol Intake: never Substance Use Type: denies use Occupational Status: retired, disabled Housing: house Household Members: spouse Family Hx:: Hypertension, Asthma, Cancer, Diabetes ROS Obtained: Yes All systems reviewed & no additional complaints Physical Exam - General General appearance: alert, in no apparent distress - Head Head exam: atraumatic, normocephalic, normal inspection - Eye Eye exam: Present: normal appearance, PERRL, EOMI - ENT ENT exam: Present: normal exam, normal oropharynx, mucous membranes moist, TM's normal bilaterally, normal external ear exam - Neck Neck exam: Present: normal inspection, full ROM, trachea midline. Absent: meningismus, lymphadenopathy - Chest Chest inspection: Present: normal inspection, symmetric chest wall rise. Absent : tenderness - Respiratory Respiratory exam: Present: normal lung sounds bilaterally. Absent: respiratory distress - Cardiovascular Cardiovascular exam: Present: irregular rhythm - Abdominal Exam Abdominal exam: Present: soft, normal bowel sounds. Absent: distention, tenderness, guarding, rebound, rigidity - Extremities Exam Extremities exam: Present: normal inspection, full ROM, normal capillary refill. Absent: calf tenderness - Back Exam Back exam: Present: normal inspection. Absent: tenderness - Neurological Exam Neurological exam: Present: alert, oriented X3, CN II-XII intact, motor sensory deficit, reflexes normal, other (Gait was not tested due to generalized weakness. ) - Psychiatric Psychiatric exam: Present: normal affect, normal mood - Skin Skin exam: Present: warm, dry, intact, normal color - Lymphatic Lymphatic Findings: no adenopathy
[2017-10-17 18:29] LABS: Basophils # 0.1 K/mm3 (0-0.2); Basophils % 0.4 % (0.1-2.0); Eosinophils # 0.5 K/mm3 (0.0-0.4); Eosinophils % 3.1 % (0.1-12.0); Hematocrit 39.1 % (42.0-52.0); Hemoglobin 11.4 g/dL (14.1-18.0); Lymphocytes # 2.6 K/mm3 (0.7-4.5); Lymphocytes % 18.1 K/mm3 (10-50); Mean Corpuscular HGB Conc 29.2 g/dL (31.8-35.4); Mean Corpuscular Hemoglobin 21.3 pg (27.0-31.2); Mean Platelet Volume 9.4 fl (7.4-10.4); Monocytes # 0.5 K/mm3 (0.1-1.0); Monocytes % 3.4 % (1.7-9.3); Neutrophils # 10.9 K/mm3 (1.8-7.8); Platelet Count 115 K/mm3 (142-424); Red Blood Count 5.35 M/mm3 (4.60-6.20); Red Cell Distribution Width 18.8 % (11.5-17.5); White Blood Count 14.5 K/mm3 (4.8-10.8)
[2017-10-17 19:04] LABS: Activated Partial Thrombo Time 24.1 seconds (23.6-34.0); INR 0.97 (0.9-1.1); Prothrombin Time 10.5 seconds (9.4-11.8)
--- NOTE | 2017-10-18 07:15 | History & Physical Report ---
*Admission Date: 10/17/17 *Chief complaint: Chest pain *History of present illness: 36-year-old male with history of paroxysmal atrial fibrillation, sick sinus syndrome requiring pacemaker placement, severe COPD presented to the emergency department with complaint of chest pain. Patient had onset of chest pain at home that would wax and wane in intensity. At some point intensity increased enough the patient became concerned and presented to the emergency department. In the ER he was found to be in atrial fibrillation with rapid ventricular response which was treated with both intravenous and oral Cardizem. This broke the atrial fibrillation and patient returned to a paced rhythm of 70 bpm. Patient takes bisoprolol at home and has been stable on this regimen for the last 9 months. Patient has recently been hospitalized for treatment of bilateral lower lobe infiltrates which appear on his current chest x-ray. Patient had some shortness of breath associated with chest pain but this morning states "I feel pretty good". [facility] History I have reviewed the patient's past medical history: Yes Medical History: Reports:: Arrhythmia, Asthma, Atrial Fibrillation, Chronic Obstructive Pulmonary Disease (COPD), Home Oxygen, Hypertension, Internal Pacemaker, Kidney Stones, Myocardial Infarction Denies:: Cancer, Diabetes Mellitus Type 1, Diabetes Mellitus Type 2, MRSA Other Medical History: Reports: Arthritis Laterality Cases: Right: Arthroscopy Knee, Bilateral: Other Other Surgeries: Yes: Hernia Repair, Pacemaker Amputation: No Fractures: No - *Social History Educational Level: Attended Grade School Smoking Status: Former smoker Tobacco Type: cigarettes # Packs/Day (cigarettes): 1 #Yrs smoked (if former smoker): 40 Smoking End Date: 2015 Alcohol Intake: never Substance Use Type: denies use Occupational Status: retired, disabled Housing: house Household Members: spouse - Psychiatric History Expresses thoughts of harming self/others: None Suicide Plan Description: No Plan *Family Hx:: Asthma, Cancer, Coronary Artery Disease, Hyperlipidemia, Hypertension Review of Systems - Review of Systems Review of systems:: pertinent systems reviewed and negative unless documented below Meds Home Medications Medication Instructions Recorded Confirmed Type cetirizine 10 mg capsule 10 mg PO DAILY 06/25/17 10/17/17 History digoxin 250 mcg tablet 250 mcg PO DAILY 06/25/17 10/17/17 History omeprazole 20 mg capsule,delayed 40 mg PO DAILY 06/25/17 10/17/17 History release tamsulosin 0.4 mg capsule 0.4 mg PO DAILY 06/25/17 10/17/17 History hydrocodone 7.5 mg-acetaminophen 1 tab PO TIDP PRN 08/10/17 10/17/17 History 325 mg tablet ipratropium-albuterol 0.5 mg-3 3 ml INHALATION [id number] PRN 08/10/17 10/17/17 History mg(2.5 mg base)/3 mL nebulization soln nitroglycerin 0.4 mg sublingual 0.4 mg SUBLINGUAL Q5MINP PRN 08/10/17 10/17/17 History tablet Aspirin [Aspirin 81mg EC Tab] 81 mg PO DAILY 09/29/17 10/17/17 History Allergies Allergy/AdvReac Type Severity Reaction Status Date / Time No Known Allergies Allergy Verified 08/10/17 09:41 Exam Vital signs and Labs for Last 24 Hours: Temp Pulse Resp BP Pulse Ox 97.5 F L 70 16 112/57 98 10/18/17 05:52 10/18/17 06:37 10/18/17 05:52 10/18/17 05:52 10/18/17 06:37 Laboratory Results - last 24 hr 10/17/17 17:45: WBC 14.5 H, RBC 5.35, Hgb 11.4 L, Hct 39.1 L, MCV 73.0 L, MCH 21.3 L, MCHC 29.2 L, RDW 18.8 H, Plt Count 115 L, MPV 9.4, Neut % (Auto) 75.0, Lymph % (Auto) 18.1, [place] % (Auto) 3.4, Eos % (Auto) 3.1, Baso % (Auto) 0.4, Neut # (Auto) 10.9 H, Lymph # (Auto) 2.6, [place] # (Auto) 0.5, Eos # (Auto) 0.5 H , Baso # (Auto) 0.1 10/17/17 17:45: Sodium 138, Potassium 4.6, Chloride 102, Carbon Dioxide 30, Anion Gap 10.6, BUN 22 H, Creatinine 1.28, Estimated Creat Clear 58, Estimated GFR 55 L, Est GFR ( Amer) 66, Glucose 178 H, Calcium 7.9 L, Total Bilirubin 0.6, AST 17, ALT 19, Alkaline Phosphatase 91, Total Creatine Kinase 18 L, CK-MB (CK-2) < 0.5, CK-MB (CK-2) Rel Index 2.8, Troponin I < 0.02, Total Protein 5.8 L, Albumin 2.4 L, Globulin 3.4 H, Albumin/Globulin Ratio 0.7 L 10/17/17 17:45: Digoxin 2.43 10/17/17 17:45: PT 10.5, INR 0.97, APTT 24.1 10/17/17 17:48: Lactic Acid 3.0 H 10/17/17 21:10: Troponin I < 0.02 10/18/17 02:50: Troponin I < 0.02 10/18/17 02:50: Lactic Acid Fup @ 4Hr 0.7 I & O for Last 24 hours: Intake & Output 10/15/17 10/16/17 10/17/17 10/18/17 11:59 11:59 11:59 11:59 Output Total 200 / 200 Balance -200 / -200 Weight 185 lb 8 oz Narrative: Patient is resting comfortably in bed. Chronically ill-appearing gentleman. Oropharynx is dry. Neck is without carotid bruits. Lungs are significant for diffuse rhonchi but no wheezing this morning. Heart has a regular rate and rhythm. Abdomen is soft, nontender, nondistended. Patient has active range of motion in all extremities. H&P: Result - Labs Labs: Short CBC 10/17/17 Range/Units 17:45 WBC 14.5 H (4.8-10.8) K/mm3 Hgb 11.4 L (14.1-18.0) g/dL Hct 39.1 L (42.0-52.0) % Plt Count 115 L (142-424) K/mm3 BMP 10/17/17 17:45 Sodium 138 Potassium 4.6 Chloride 102 Carbon Dioxide 30 BUN 22 H Creatinine 1.28 Glucose 178 H Calcium 7.9 L Cardiac Enzymes 10/17/17 10/17/17 10/18/17 Range/Units 17:45 21:10 02:50 Total Creatine Kinase 18 L (39-308) U/L CK-MB (CK-2) < 0.5 (0.0-3.6) ng/ml Troponin I < 0.02 < 0.02 < 0.02 (0.00-0.06) ng/ml Liver Function 10/17/17 Range/Units 17:45 Total Bilirubin 0.6 (0.2-1.0) mg/dL AST 17 (15-37) U/L ALT 19 (12-78) U/L Alkaline Phosphatase 91 (46-116) U/L Albumin 2.4 L (3.4-5.0) gm/dL Assessment and Plan (1) Paroxysmal atrial fibrillation with RVR Current visit: Yes Status: Acute Category: Medical Code(s): I48.0 - Paroxysmal atrial fibrillation (2) COPD (chronic obstructive pulmonary disease) Current visit: Yes Status: Chronic Category: Medical Code(s): J44.9 - Chronic obstructive pulmonary disease, unspecified - Assessment and plan all Dx Assessment and Plan for all problems:: Patient is near his baseline status. Will start Solu-Medrol and continue Rocephin and azithromycin. Bisoprolol has been restarted as well. Monitor today with potential discharge tomorrow
--- NOTE | 2017-10-18 08:30 | Pharmacy Consult Notes ---
[facility] Pharmacy VTE Monitoring - Patient Demographics Admission date: 10/17/17 Report Date: 10/18/17 Time: 08:30 Allergies/Adverse Reactions: Patient Allergies No Known Allergies Allergy (Verified 08/10/17 09:41) Height: 1.83 m Weight: 84.141 kg Patient Problems: Current Active Problems Paroxysmal atrial fibrillation with RVR (Acute) Pneumonia (Acute) COPD (chronic obstructive pulmonary disease) (Chronic) - VTE Risk Labs: VTE Related Lab Results Hgb 11.4 g/dL (14.1-18.0) L 10/17/17 17:45 Hct 39.1 % (42.0-52.0) L 10/17/17 17:45 Plt Count 115 K/mm3 (142-424) L 10/17/17 17:45 PT 10.5 seconds (9.4-11.8) 10/17/17 17:45 INR 0.97 (0.9-1.1) 10/17/17 17:45 APTT 24.1 seconds (23.6-34.0) 10/17/17 17:45 BUN 22 mg/dL (7-18) H 10/17/17 17:45 Creatinine 1.28 mg/dL (0.70-1.30) 10/17/17 17:45 Estimated Creat Clear 58 mL/min (0-300) 10/17/17 17:45 Was VTE Risk Assessment Performed: Yes VTE Score: 6 VTE Risk Level: Moderate Risk - Prophylaxis VTE Prophylaxis Ordered?: Yes Types of VTE Prophylaxis: TEDS Knee High Location of Applied Device: Bilateral Lower Extremeties - VTE Diagnosis Confirmed Treatment or plan recommended: Continue Current Treatment
--- NOTE | 2017-10-18 09:22 | Consult Report ---
History of Present Illness Consult date: 10/18/17 Requesting physician: Sharan Tariq Consult reason: atrial fibrillation Chief complaint: chest pain Additional Medical History:: 1. Chronic obstructive pulmonary disease/chronic bronchitis A. Chronic oxygen therapy B. History of tobacco use discontinued about 2015 2. Hypertension A. Echo, 10/2016, 1. Normal left ventricular size, mild concentric left ventricular hypertrophy, visually estimated ejection fraction 55% with no obvious regional wall motion abnormality, grade 1 diastolic dysfunction seen without tissue Doppler evidence of raised left atrial pressure. 2. Mild mitral and tricuspid regurgitation, calculated right ventricular systolic pressure 47 mmHg consistent with moderate pulmonary hypertension. 3. No significant pericardial effusion noted. 3. History of atrial fibrillation. A. History of gastrointestinal bleed on Xarelto and eliquis therapy. B. 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 Rate controlled with bisoprolol and digoxin 4. Non-obstructive CAD A. Cardiac cath, 11/2016, mild CAD, normal LVEF, mild LVEDP and pulmonary HTN. History of present illness: 76-year-old male with history of paroxysmal atrial fibrillation, sick sinus syndrome requiring pacemaker placement, severe COPD presented to the emergency department with complaint of chest pain. Patient had onset of chest pain at home that would wax and wane in intensity. At some point intensity increased enough the patient became concerned and presented to the emergency department. In the ER he was found to be in atrial fibrillation with rapid ventricular response which was treated with both intravenous and oral Cardizem. This broke the atrial fibrillation and patient returned to a paced rhythm of 70 bpm. Patient takes bisoprolol at home and has been stable on this regimen for the last 9 months. Patient has recently been hospitalized for treatment of bilateral lower lobe infiltrates which appear on his current chest x-ray. Patient had some shortness of breath associated with chest pain but this morning states "I feel pretty good". The above per Dr. Tariq. Symptoms of chest pain and palpitations resolved with conversion of cardiac rhythm from A. fib with RVR to sinus/paced rhythm. Cardiac enzymes have remained normal overnight. [facility] History Medical History: Reports:: Arrhythmia, Asthma, Atrial Fibrillation, Chronic Obstructive Pulmonary Disease (COPD), Home Oxygen, Hypertension, Internal Pacemaker, Kidney Stones, Myocardial Infarction Denies:: Cancer, Diabetes Mellitus Type 1, Diabetes Mellitus Type 2, MRSA Other Medical History: Reports: Arthritis Laterality Cases: Right: Arthroscopy Knee, Bilateral: Other Other Surgeries: Yes: Hernia Repair, Pacemaker Amputation: No Fractures: No - *Social History Educational Level: Attended Grade School Smoking Status: Former smoker Tobacco Type: cigarettes # Packs/Day (cigarettes): 1 #Yrs smoked (if former smoker): 40 Smoking End Date: 2015 Alcohol Intake: never Substance Use Type: denies use Occupational Status: retired, disabled Housing: house Household Members: spouse - Psychiatric History Expresses thoughts of harming self/others: None Suicide Plan Description: No Plan *Family Hx:: Asthma, Cancer, Coronary Artery Disease, Hyperlipidemia, Hypertension Meds Home Medications Medication Instructions Recorded Confirmed Type cetirizine 10 mg capsule 10 mg PO DAILY 06/25/17 10/17/17 History digoxin 250 mcg tablet 250 mcg PO DAILY 06/25/17 10/17/17 History omeprazole 20 mg capsule,delayed 40 mg PO DAILY 06/25/17 10/17/17 History release tamsulosin 0.4 mg capsule 0.4 mg PO DAILY 06/25/17 10/17/17 History hydrocodone 7.5 mg-acetaminophen 1 tab PO TIDP PRN 08/10/17 10/17/17 History 325 mg tablet ipratropium-albuterol 0.5 mg-3 3 ml INHALATION [id number] PRN 08/10/17 10/17/17 History mg(2.5 mg base)/3 mL nebulization soln nitroglycerin 0.4 mg sublingual 0.4 mg SUBLINGUAL Q5MINP PRN 08/10/17 10/17/17 History tablet Aspirin [Aspirin 81mg EC Tab] 81 mg PO DAILY 09/29/17 10/17/17 History Allergies Allergy/AdvReac Type Severity Reaction Status Date / Time No Known Allergies Allergy Verified 08/10/17 09:41 Review of Systems - *Cardiovascular Reports chest pain, Reports shortness of breath - *Respiratory Reports shortness of breath - *Gastrointestinal Denies abdominal pain - *Genitourinary Denies difficulty urinating Exam Vital signs and Labs for Last 24 Hours: Temp Pulse Resp BP Pulse Ox 97.7 F 70 18 100/62 95 10/18/17 08:00 10/18/17 08:50 10/18/17 08:00 10/18/17 08:00 10/18/17 08:00 Laboratory Results - last 24 hr 10/17/17 17:45: WBC 14.5 H, RBC 5.35, Hgb 11.4 L, Hct 39.1 L, MCV 73.0 L, MCH 21.3 L, MCHC 29.2 L, RDW 18.8 H, Plt Count 115 L, MPV 9.4, Neut % (Auto) 75.0, Lymph % (Auto) 18.1, [place] % (Auto) 3.4, Eos % (Auto) 3.1, Baso % (Auto) 0.4, Neut # (Auto) 10.9 H, Lymph # (Auto) 2.6, [place] # (Auto) 0.5, Eos # (Auto) 0.5 H , Baso # (Auto) 0.1 10/17/17 17:45: Sodium 138, Potassium 4.6, Chloride 102, Carbon Dioxide 30, Anion Gap 10.6, BUN 22 H, Creatinine 1.28, Estimated Creat Clear 58, Estimated GFR 55 L, Est GFR ( Amer) 66, Glucose 178 H, Calcium 7.9 L, Total Bilirubin 0.6, AST 17, ALT 19, Alkaline Phosphatase 91, Total Creatine Kinase 18 L, CK-MB (CK-2) < 0.5, CK-MB (CK-2) Rel Index 2.8, Troponin I < 0.02, Total Protein 5.8 L, Albumin 2.4 L, Globulin 3.4 H, Albumin/Globulin Ratio 0.7 L 10/17/17 17:45: Digoxin 2.43 10/17/17 17:45: PT 10.5, INR 0.97, APTT 24.1 10/17/17 17:48: Lactic Acid 3.0 H 10/17/17 21:10: Troponin I < 0.02 10/18/17 02:50: Troponin I < 0.02 10/18/17 02:50: Lactic Acid Fup @ 4Hr 0.7 I & O for Last 24 hours: Intake & Output 10/15/17 10/16/17 10/17/17 10/18/17 11:59 11:59 11:59 11:59 Output Total 200 / 200 Balance -200 / -200 Weight 185 lb 8 oz - *Routine Neck Exam Absent: JVD, carotid bruit - *Routine Respiratory Exam Present: rhonchi, wheezes, diminished air movement - *Routine Cardiovascular Exam Present: RRR - *Routine Abdominal Exam Absent: tenderness - *Routine Extremities Exam Absent: edema - *Routine Neurological Exam Present: alert, oriented X3, moving all extremities Assessment and Plan (1) Paroxysmal atrial fibrillation with RVR Current visit: Yes Status: Acute Category: Medical Code(s): I48.0 - Paroxysmal atrial fibrillation (2) COPD (chronic obstructive pulmonary disease) Current visit: Yes Status: Chronic Category: Medical Code(s): J44.9 - Chronic obstructive pulmonary disease, unspecified - Assessment and plan all Dx Assessment and Plan for all problems:: 1. Recommend resuming bisoprolol 10 mg BID and digoxin 0.25 mg daily 2. Consider using cardizem CD 120 mg daily if BP tolerates 3. Despite elevated CHADS score, pt is not a candidate for anticoagulation due to recurrent GI bleed and anemia. He is not a candidate for left atrial appendage ligation due to severe COPD. If recurrent episodes of A. fib with RVR occur, then would consider referral for AV node ablation since he already has pacemaker in situ. 4. Pacemaker interrogation shows multiple high ventricular rates yesterday with atrial tachycardia/atrial fibrillation burden of 6.1% since July 02, 2017. Most of the episodes are in clusters that center around pulmonary flare-ups. I discussed the option of AV node ablation with the patient. He will think about it and we can discuss it further as outpatient.
--- NOTE | 2017-10-19 06:30 | Discharge Summary ---
General - General Admission date:: 10/17/17 Discharge date: 10/19/17 HPI HPI: 36-year-old male with history of paroxysmal atrial fibrillation, sick sinus syndrome requiring pacemaker placement, severe COPD presented to the emergency department with complaint of chest pain. Patient had onset of chest pain at home that would wax and wane in intensity. At some point intensity increased enough the patient became concerned and presented to the emergency department. In the ER he was found to be in atrial fibrillation with rapid ventricular response which was treated with both intravenous and oral Cardizem. This broke the atrial fibrillation and patient returned to a paced rhythm of 70 bpm. Patient takes bisoprolol at home and has been stable on this regimen for the last 9 months. Patient has recently been hospitalized for treatment of bilateral lower lobe infiltrates which appear on his current chest x-ray. Patient had some shortness of breath associated with chest pain but this morning states "I feel pretty good". Hospital Course Hospital Course: Patient was admitted, and should have been admitted observation from the beginning, and placed on Solu-Medrol and duo nebs for COPD exacerbation, Rocephin and azithromycin for his chronic pneumonia. Was given Cardizem bolus in the emergency department and oral Cardizem which broke his atrial fibrillation and he returned to a paced rhythm. Patient was admitted. Cardiology service was consulted. Pacemaker interrogation revealed episodes of tachycardia that are seemingly associated with COPD exacerbations. Cardiology service discussed ablative procedure with the patient. This is been discussed in the past and due to transportation issues been somewhat difficult to arrange. I did explain to the patient that he seems to be having more problems and even he is aware of and he will consider ablation. Transportation is still an issue and the patient believes he would need a 1-2 week advance notice for any appointments to be able to arrange transportation. Patient was discharged home on October 19. I discontinued his current inhalers in favor of Trellegy simplify his medical regimen. Patient will follow-up in my office on Sunday and bring in all medications. He was also discussed with the patient the possibility of adding on an as needed Cardizem to treat episodes of tachycardia but I recommended against this as I received phone calls 1-2 times per week from patient's home health stating he is hypotensive and I believe this would exacerbate those episodes. Objective Vital signs: Temp Pulse Resp BP Pulse Ox 97.6 F 70 20 133/73 98 05/04/18 03:49 10/19/17 06:05 10/19/17 03:49 10/19/17 03:49 10/19/17 06:05 Results Labs on day of discharge: Labs from last 24 hours 10/18/17 08:51 Troponin I < 0.02 Preliminary micro results at discharge 10/17/17 17:48 Blood Culture - Preliminary Blood NO GROWTH AFTER 24 HOURS 10/17/17 17:48 Blood Culture - Preliminary Blood NO GROWTH AFTER 24 HOURS DS: Diagnosis - Discharge Diagnosis (1) Paroxysmal atrial fibrillation with RVR Status: Acute (2) COPD (chronic obstructive pulmonary disease) Status: Chronic Discharge Plan - Patient Discharge Instructions ACTIVITY: Continue current activity DIET: continue same diet - Follow up Plan Follow up with: Blade Comer MD [Staff Physician] - Sharan Tariq MD [Primary Care Provider] - 10/22/17 Disposition: Home, Self-Prison Medications: Home Medications Medication Instructions Recorded Confirmed Type cetirizine 10 mg capsule 10 mg PO DAILY 06/25/17 10/17/17 History digoxin 250 mcg tablet 250 mcg PO DAILY 06/25/17 10/17/17 History omeprazole 20 mg capsule,delayed 40 mg PO DAILY 06/25/17 10/18/17 History release tamsulosin 0.4 mg capsule 0.4 mg PO DAILY 06/25/17 10/17/17 History hydrocodone 7.5 mg-acetaminophen 1 tab PO TIDP PRN 08/10/17 10/18/17 History 325 mg tablet ipratropium-albuterol 0.5 mg-3 3 ml INHALATION [id number] PRN 08/10/17 10/17/17 History mg(2.5 mg base)/3 mL nebulization soln nitroglycerin 0.4 mg sublingual 0.4 mg SUBLINGUAL Q5MINP PRN 08/10/17 10/17/17 History tablet Aspirin [Aspirin 81mg EC Tab] 81 mg PO DAILY 09/29/17 10/17/17 History Bisoprolol Fumarate 10 mg PO BID 10/18/17 10/18/17 History Furosemide [Furosemide 20mg Tab] 20 mg PO Q48H 10/18/17 10/18/17 History Prescriptions/Medication Reconciliation: New Fluticasone/Umeclidin/Vilanter [Trelegy Ellipta 100-62.5-25] 1 each IH DAILY #1 blst.w.dev Continue digoxin 250 mcg tablet 250 mcg PO DAILY cetirizine 10 mg capsule 10 mg PO DAILY tamsulosin 0.4 mg capsule 0.4 mg PO DAILY omeprazole 20 mg capsule,delayed release 40 mg PO DAILY nitroglycerin 0.4 mg sublingual tablet 0.4 mg SUBLINGUAL Q5MINP PRN PRN Reason: Angina ipratropium-albuterol 0.5 mg-3 mg(2.5 mg base)/3 mL nebulization soln 3 ml INHALATION [id number] PRN PRN Reason: Shortness Of Breath hydrocodone 7.5 mg-acetaminophen 325 mg tablet 1 tab PO TIDP PRN PRN Reason: PAIN Aspirin [Aspirin 81mg EC Tab] 81 mg PO DAILY Bisoprolol Fumarate 10 mg PO BID Furosemide [Furosemide 20mg Tab] 20 mg PO Q48H
== END 2017-10-19 12:48 | disposition home health service (06) ==
LOC: ER 17:31 → 2ND 19:35 → INTOOBSV 21:04 → 2ND 21:05
PROVIDERS: ADMIT Internal Medicine Adolescent Medicine; ATTEND Family Medicine
CPT/HCPCS: 36415; 71010; 71045; 80053; 80162; 82550; 82553; 83605; 84484; 85025; 85610; 85730; 87040; 87205; 93005; 94640; 94761; 96365; 96366; 96367; 99285; G0378; J0456

== ENCOUNTER → 2017-11-02 10:56 | Outpatient (CLI) | payer MEDICARE, MEDICAID, SELFPAY ==
--- NOTE | 2017-11-02 11:03 | XR_ITS ---
XR knee RT 3V HISTORY: Right knee pain ITS.REASON: ELLE KNEE PAIN ORDERING PHYSICIAN: Sharan Tariq MD PATIENT AGE: 76 years COMPARISON: None FINDINGS: There are moderate osteoarthritic changes of the medial compartment and patellofemoral joint with mild osteoarthritic change of the lateral compartment. Bony spurs are present at the distal aspect of the medial and lateral femoral condyles. No fracture or dislocation. IMPRESSION: Moderate osteoarthritis of the right knee
--- NOTE | 2017-11-02 11:03 | XR_ITS ---
XR knee LT 3V HISTORY: Left knee pain ITS.REASON: ELLE KNEE PAIN ORDERING PHYSICIAN: Sharan Tariq MD PATIENT AGE: 76 years COMPARISON: 07/27/2017 FINDINGS: Mild osteoarthritic changes are present at the patellofemoral joint and medial compartment with minimal osteoarthritic change of the lateral compartment overall not significant change. No fracture or dislocation. No lytic or blastic change. IMPRESSION: Osteoarthritis not significantly changed
== END ==
PROVIDERS: PCP Family Medicine; Visit Provider Family Medicine
DX: M25.561 Pain in right knee (principal); M25.562 Pain in left knee
CPT/HCPCS: 73562

== ENCOUNTER → 2018-01-17 13:19 | Outpatient (REF) | payer MEDICARE, MEDICAID, SELFPAY ==
[2018-01-17 13:27] LABS: Hematocrit 44.3 % (42.0-52.0); Hemoglobin 13.1 g/dL (14.1-18.0); Mean Corpuscular HGB Conc 29.7 g/dL (31.8-35.4); Mean Corpuscular Hemoglobin 24.3 pg (27.0-31.2); Mean Corpuscular Volume 81.8 fl (80-94); Mean Platelet Volume 9.1 fl (7.4-10.4); Neutrophils % 62.9 % (37.0-80.0); Platelet Count 184 K/mm3 (142-424); Red Blood Count 5.41 M/mm3 (4.60-6.20); Red Cell Distribution Width 25.2 % (11.5-17.5); White Blood Count 11.7 K/mm3 (4.8-10.8)
[2018-01-17 13:28] LABS: Basophils # 0.1 K/mm3 (0-0.2); Eosinophils # 1.2 K/mm3 (0.0-0.4); Eosinophils % 10.4 % (0.1-12.0); Lymphocytes # 2.3 K/mm3 (0.7-4.5); Lymphocytes % 21.5 K/mm3 (10-50); Monocytes # 0.5 K/mm3 (0.1-1.0); Monocytes % 4.2 % (1.7-9.3); Neutrophils # 7.3 K/mm3 (1.8-7.8)
== END ==
LOC: LAB 13:19
PROVIDERS: Visit Provider Internal Medicine Medical Oncology
DX: D72.829 Elevated white blood cell count, unspecified (principal)
CPT/HCPCS: 36415; 85025

== ENCOUNTER → 2018-03-04 14:11 | Outpatient (CLI) | payer MEDICARE, MEDICAID, SELFPAY ==
--- NOTE | 2018-03-04 14:16 | XR_ITS ---
XR knee LT 4V HISTORY: ITS.REASON: left knee weightbearing views ORDERING PHYSICIAN: Heber Casillas MD PATIENT AGE: 77 years COMPARISON: 11/02/2017 FINDINGS: There are osteoarthritic changes present involving all 3 compartments most prominent at the medial compartment with decrease in the joint space and osteophyte formation. This appears somewhat worse when compared to the previous exam however, that study was not performed with weightbearing as is the case on today's exam. No fracture or dislocation. No lytic or blastic change. Decreased density is present along the medial and posterior aspect of the patella on the sunrise view and millimeters projection all. A true patellar defect is felt to be less likely but not entirely excluded. IMPRESSION: Tricompartmental osteoarthritis as described above most severe in the medial compartment and patellofemoral joint
== END ==
PROVIDERS: PCP Family Medicine; Visit Provider Orthopaedic Surgery
DX: M17.12 Unilateral primary osteoarthritis, left knee (principal)
CPT/HCPCS: 73564

== ENCOUNTER 2018-05-05 20:42 | Inpatient (IN) ==
[2018-05-05 21:46] LABS: Basophils # 0.1 K/mm3 (0-0.2); Basophils % 0.8 % (0.1-2.0); Eosinophils % 6.8 % (0.1-12.0); Hematocrit 42.6 % (42.0-52.0); Hemoglobin 13.1 g/dL (14.1-18.0); Lymphocytes # 3.5 K/mm3 (0.7-4.5); Lymphocytes % 23.5 % (10-50); Mean Corpuscular HGB Conc 30.8 g/dL (31.8-35.4); Mean Corpuscular Hemoglobin 25.9 pg (27.0-31.2); Mean Corpuscular Volume 84.2 fl (80-94); Mean Platelet Volume 9.3 fl (7.4-10.4); Monocytes # 0.8 K/mm3 (0.1-1.0); Monocytes % 5.4 % (1.7-9.3); Neutrophils # 9.6 K/mm3 (1.8-7.8); Neutrophils % 63.6 % (37.0-80.0); Platelet Count 178 K/mm3 (142-424); Red Blood Count 5.05 M/mm3 (4.60-6.20); Red Cell Distribution Width 16.4 % (11.5-17.5); White Blood Count 15.1 K/mm3 (4.8-10.8)
[2018-05-05 22:03] LABS: Alanine Aminotransferase 14 U/L (12-78); Albumin Level 2.5 gm/dL (3.4-5.0); Alkaline Phosphatase 112 U/L (46-116); Anion Gap 10.1 mEq/L (5-15); Aspartate Amino Transferase 14 U/L (15-37); Bilirubin,Direct 0.1 mg/dL (0.0-0.2); Bilirubin,Indirect 0.2 mg/dL (0.0-0.9); Bilirubin,Total 0.3 mg/dL (0.2-1.0); Blood Urea Nitrogen 10 mg/dL (7-18); Carbon Dioxide 33 mmol/L (21.0-32.0); Chloride 103 mmol/L (98-107); Glucose 112 mg/dL (74-106); Potassium 4.1 mmoL/L (3.5-5.1); Sodium 142 mmol/L (136-145); Total Protein,Serum 6.6 gm/dL (6.4-8.2)
--- NOTE | 2018-05-05 22:27 | Emergency Department Note ---
ED Disposition Clinical Impression: COPD exacerbation Community acquired pneumonia Qualifiers: Laterality: left Lung location: lower lobe of lung Qualified Code(s): J18.1 - Lobar pneumonia, unspecified organism Disposition: Still a Patient Condition on Discharge: Fair - Critical Care Critical Care Time: No Attestation: On 05/05/18, the high probability of a clinically significant, sudden or life threatening deterioration of the following system(s) required my full and direct attention, intervention and personal management. The time I documented below is in addition to time spent performing reported procedures but includes the following listed in this critical care notation. Medical Decision Making - Huber Inquiry Pt receiving controlled substance: No Vital Signs: 05/05/18 20:43 05/05/18 23:10 05/05/18 23:37 Temperature 98.8 F Temperature Source Oral Pulse Rate [Right Brachial] 81 80 79 Respiratory Rate 22 22 24 Blood Pressure [Right Arm] 136/74 145/81 H 135/104 H Blood Pressure Mean [Right Arm] 94 102 114 Blood Pressure Source [Right Arm] Automatic Cuff Automatic Cuff Blood Pressure Position [Right Arm] Sitting Sitting 02 Sat by Pulse Oximetry 98 98 94 L Oxygen Delivery Method Nasal Cannula Nasal Cannula Oxygen Flow Rate (LPM) 4 4 05/06/18 00:47 05/06/18 02:46 Temperature Temperature Source Pulse Rate [Right Brachial] 70 80 Respiratory Rate 22 20 Blood Pressure [Right Arm] 135/81 133/69 Blood Pressure Mean [Right Arm] 99 90 Blood Pressure Source [Right Arm] Automatic Cuff Blood Pressure Position [Right Arm] Sitting 02 Sat by Pulse Oximetry 97 97 Oxygen Delivery Method Nasal Cannula Oxygen Flow Rate (LPM) - Lab Data Lab Results 05/05/18 21:25: WBC 15.1 H, RBC 5.05, Hgb 13.1 L, Hct 42.6, MCV 84.2, MCH 25.9 L , MCHC 30.8 L, RDW 16.4, Plt Count 178, MPV 9.3, Neut % (Auto) 63.6, Lymph % (Auto) 23.5, [place] % (Auto) 5.4, Eos % (Auto) 6.8, Baso % (Auto) 0.8, Neut # (Auto) 9.6 H, Lymph # (Auto) 3.5, [place] # (Auto) 0.8, Eos # (Auto) 1.0 H, Baso # (Auto) 0.1, Total Counted 100, Neutrophils % (Manual) 73, Lymphocytes % (Manual) 18, Monocytes % (Manual) 7, Eosinophils % (Manual) 2, Platelet Estimate Normal, Polychromasia 1+, Hypochromasia 1+ 05/05/18 21:25: Lactate 1.5 05/05/18 21:25: Sodium 142, Potassium 4.1, Chloride 103, Carbon Dioxide 33 H, Anion Gap 10.1, BUN 10, Creatinine 1.06, Estimated Creat Clear 77, Estimated GFR 68, Est GFR ( Amer) 82, Glucose 112 H, Calcium 8.0 L, Total Bilirubin 0.3, Direct Bilirubin 0.1, Indirect Bilirubin 0.2, AST 14 L, ALT 14, Alkaline Phosphatase 112, Troponin I < 0.02, Total Protein 6.6, Albumin 2.5 L 05/05/18 22:39: Specimen Source R/r, O2 % 4.5, ABG pH 7.41, ABG pCO2 49.1 H, ABG pO2 85.8, ABG HCO3 30.1 H, ABG Total CO2 31.6 H, ABG O2 Saturation 97, ABG Base Excess 5.4 H, Tera Test Y Result diagrams: 05/05/18 21:25 05/05/18 21:25 Orders (Tests/Meds): ED MEDICATIONS Generic Name Dose Route Start Last Admin Trade Name Freq PRN Reason Stop Dose Admin Levofloxacin/Dextrose 750 mg in 150 mls @ 100 mls/hr 05/06/18 00:30 05/06/18 00:38 Levofloxacin 750mg/150ml Premix IV 05/20/18 00:29 100 mls/hr Q24H PATRICK Administration Protocol Vancomycin HCl 1,750 mg/ 250 mls @ 125 mls/hr 05/06/18 00:45 05/06/18 02:33 Sodium Chloride IV 05/20/18 00:44 125 mls/hr Q18H PATRICK Administration Discontinued Medications Generic Name Dose Route Start Last Admin Trade Name Freq PRN Reason Stop Dose Admin Albuterol/Ipratropium 3 ml 05/05/18 20:48 05/05/18 21:22 Duoneb 3ml Neb IH 05/05/18 20:49 3 ml ONCE ONE Administration Albuterol/Ipratropium 3 ml 05/05/18 22:41 05/05/18 22:41 Duoneb 3ml Neb IH 05/05/18 22:42 3 ml ONCE ONE Administration Methylprednisolone Sodium Succinate 125 mg 05/05/18 20:48 05/05/18 21:22 Solu-Medrol 125mg/2ml Vial IV 05/05/18 20:49 125 mg ONCE ONE Administration Miscellaneous 1 each 05/06/18 00:19 Vancomycin Consult Request NOTAPPLIC 05/06/18 00:20 CONSULT PHARMACY ONE ORDERS Category Date Time Status XR chest portable Stat Exams 05/05/18 20:47 Taken Blood Culture Stat Micro 05/05/18 21:25 Received ABG [Arterial Blood Gas] Stat RT 05/05/18 23:11 Ordered ECG Request by /Jaime Stat Y 05/05/18 20:47 Ordered - Radiology Data #1 Image(s): Chest Image Reviewed: Yes I reviewed the patient's radiology image Chronic bibasilar airsp dz, appears worse in L base - ECG Data Tracing #1 EKG interpreted by Jesse Mascorro MD: Rhythm: Ventricular paced rhythm Rate: 80 No evidence of acute ischemia or injury - Physician Consults Time: 23:45 Reason -: Admission Comment/Response: He knows the patient well. States "he sounds terrible on a good day". Agrees to admit the patient to the hospital. We discussed the patient's clinical information, including history, exam, laboratory and radiology results and ED course. Per hospital procedure, I will write temporary bridge inpatient orders on the patient. Specific orders requested by the admitting physician: Levaquin and Vancomycin, nebs, steroids, oxygen Medical Decision Narrative: 3:20 AM: Complains of inability to urinate, sensation of bladder fullness and distention. Proctor catheter ordered. General Adult HPI - General Chief complaint: Shortness of Breath/Dyspnea Stated complaint: chest pain/sob Time Seen by Provider: 05/05/18 22:28 Mode of Arrival: Ambulatory Limitations: No Limitations Description of Symptoms (Recalled from ER Triage Doc. by RN): Brought in by EMS for shortness of air and painful inspiration/cough. Pt with labored breathing and wheezing noted. Duoneb en route - History of Present Illness HPI narrative: Brought in by ambulance for shortness of breath and chest pain. Patient states symptoms began today. States he has chronic wheezing, but it is worse today. Coughing with clear and yellow sputum. Denies fever. Has diffuse anterior chest pain that worsens with cough, but does not worsen with deep breath. Pain waxes and wanes. Has chronic swelling of his legs for 1 year, no change. No leg pain. No hemoptysis. Denies rhinorrhea or sore throat. Has COPD, on oxygen 3 L at home. 3 nebulizer treatments a day. Former smoker. - Related Data Home Medications Medication Instructions Recorded Confirmed ipratropium-albuterol 0.5 mg-3 3 ml INHALATION [id number] PRN 08/10/17 05/05/18 mg(2.5 mg base)/3 mL nebulization soln Aspirin [Aspirin 81mg EC Tab] 81 mg PO DAILY 09/29/17 05/05/18 omeprazole 20 mg capsule,delayed 20 mg PO DAILY cap 11/20/17 05/05/18 release furosemide 40 mg tablet 40 mg PO BID 01/15/18 05/05/18 hydrocodone 7.5 mg-acetaminophen 1 tab PO Q6H PRN 01/15/18 05/05/18 300 mg tablet Tamsulosin HCl [Flomax 0.4mg 0.4 mg PO HS 05/05/18 05/05/18 capsule] Allergies Allergy/AdvReac Type Severity Reaction Status Date / Time No Known Allergies Allergy Verified 02/14/18 15:41 [facility] History I have reviewed the patient's past medical history: Yes Medical History: Reports:: Arrhythmia, Asthma, Atrial Fibrillation, Chronic Obstructive Pulmonary Disease (COPD), Home Oxygen, Hypertension, Internal Pacemaker, Lung Disease, Kidney Stones, Myocardial Infarction Denies:: Cancer, Diabetes Mellitus Type 1, Diabetes Mellitus Type 2, MRSA Other Medical History: Reports: Arthritis Comment: Heart disease, heart attack, rheumatoid arthritis Laterality Cases: Right: Arthroscopy Knee, Bilateral: Other Other Surgeries: Yes: Hernia Repair, Pacemaker Amputation: No Fractures: No - Social History Smoking Status: Former smoker Tobacco Type: cigarettes # Packs/Day (cigarettes): 1 #Yrs smoked (if former smoker): 40 Alcohol Intake: never Alcohol Intake Frequency:: other Substance Use Type: denies use Occupational Status: retired, disabled Housing: house Household Members: spouse - Psychiatric History Expresses thoughts of harming self/others: None Suicide Plan Description: No Plan Family Hx:: Asthma, Cancer, Coronary Artery Disease, Hyperlipidemia, Hypertension ROS Obtained: Yes All systems reviewed & no additional complaints - Constitutional Constitutional: Denies fever(s) - ENT Ears, Nose, Mouth, and Throat: Denies nasal discharge, Denies sore throat - Cardiovascular Cardiovascular: Reports chest pain, Reports leg edema (Chronic) - Respiratory Respiratory: Yes cough, Yes dyspnea, No coughing up blood - Gastrointestinal Gastrointestingal: Denies: abdominal pain, diarrhea, vomiting Physical Exam - General General appearance: alert, other (Audible wheezing, congested cough, tachypnea) - Head Head exam: atraumatic, normocephalic - Eye Eye exam: Present: normal appearance, PERRL, EOMI - ENT ENT exam: Present: mucous membranes moist - Neck Neck exam: Present: normal inspection, trachea midline - Chest Chest inspection: Present: normal inspection, symmetric chest wall rise - Respiratory Respiratory exam: Present: wheezes - Cardiovascular Cardiovascular exam: Present: regular rate, normal rhythm, normal heart sounds - Abdominal Exam Abdominal exam: Present: soft. Absent: distention, tenderness, guarding - Extremities Exam Extremities exam: Present: other (Trace pitting ankle edema bilaterally pretibial) - Neurological Exam Neurological exam: Present: alert, oriented X3 - Psychiatric Psychiatric exam: Present: normal affect, normal mood - Skin Skin exam: Present: warm, dry
[2018-05-05 22:40] LABS: ABG Base Excess 5.4 mmol/L (-2.4-2.3); ABG HCO3 30.1 mmhg (22.0-26.0); ABG Oxygen Saturation 97 % (90-100); ABG PCO2 49.1 mmhg (35.0-45.0); ABG PH 7.41 mmol/L (7.35-7.45); ABG PO2 85.8 mmhg (80-100); ABG TCO2 31.6 mmhg (23-27)
[2018-05-05 22:41] LABS: Allen's Test Y; Oxygen 4.5 %
[2018-05-05 22:42] LABS: Eosinophils % 2 % (0-3); Hypochromasia 1+; Lymphocytes % 18 % (10-50); Monocytes % 7 % (2-9); Neutrophils % 73 % (42-76); Polychromasia 1+; Total Cells Counted 100
[2018-05-06 03:45] LABS: Microscopic, Urine URINE MICROSCOPIC (MICROSCOPIC)
[2018-05-06 03:46] LABS: Appearance,Urine CLEAR (Clear); Bilirubin,Urine Negative (Negative); Blood, Urine Negative (Negative); Color,Urine YELLOW (Yellow); Glucose,Urine (UA) Negative (Negative); Ketones,Urine Negative (Negative); Leukocyte Esterase,Urine Negative (Negative); Protein,Urine Negative (Negative); Specific Gravity, Urine 1.025 (1.005-1.030); Urobilinogen,Urine 0.2 EU/dl (0.2)
--- NOTE | 2018-05-06 07:08 | History & Physical Report ---
*Admission Date: 05/05/18 *Chief complaint: Shortness of breath *History of present illness: 77-year-old male with COPD/chronic bronchitis presented to the emergency department with increasing shortness of breath over the last 24 hours. Patient normally has a cough productive of white sputum but sputum had become brown and yellow in color. While patient did not detect any fevers at home he did note that he awoke overnight and had broken out in a sweat. He felt more dyspneic above baseline. As the day went on he felt more more like "I was going to smother". This prompted him to seek treatment at the emergency department. In the ER he underwent evaluation. Chest x-ray was concerning for pneumonia. Sputum culture and blood cultures were performed. Patient was started on cefepime and Levaquin due to history of Pseudomonas and admitted. This morning patient states "I might feel little better". [facility] History I have reviewed the patient's past medical history: Yes Medical History: Reports:: Arrhythmia, Asthma, Atrial Fibrillation, Chronic Obstructive Pulmonary Disease (COPD), Home Oxygen, Hypertension, Internal Pacemaker, Lung Disease, Kidney Stones, Myocardial Infarction Denies:: Cancer, Diabetes Mellitus Type 1, Diabetes Mellitus Type 2, MRSA Other Medical History: Reports: Arthritis Comment: Cardiac ablation for atrial fibrillation Laterality Cases: Right: Arthroscopy Knee, Bilateral: Other Other Surgeries: Yes: Hernia Repair, Pacemaker Amputation: No Fractures: No - *Social History Smoking Status: Former smoker Tobacco Type: cigarettes # Packs/Day (cigarettes): 1 #Yrs smoked (if former smoker): 40 Alcohol Intake: never Alcohol Intake Frequency:: other Substance Use Type: denies use Occupational Status: retired, disabled Housing: house Household Members: spouse - Psychiatric History Expresses thoughts of harming self/others: None Suicide Plan Description: No Plan *Family Hx:: Asthma, Cancer, Coronary Artery Disease, Hyperlipidemia, Hypertension Review of Systems - Review of Systems Review of systems:: pertinent systems reviewed and negative unless documented below - Constitutional Denies body ache(s), Denies chills - *Cardiovascular Reports chest pain, Reports chest pain with activity - *Respiratory Reports change in phlegm color, Reports chest congestion, Reports cough, Reports shortness of breath, Reports shortness of breath with activity, Reports w heezing, Denies coughing up blood, Denies pain on inspiration, Denies pain with cough - *Gastrointestinal Reports bloating, Denies change in bowel habits, Denies change in stools - *Genitourinary Denies difficulty urinating - *Musculoskeletal Reports joint pain, Reports back pain - *Neurologic Denies abnormal walking Meds Home Medications Medication Instructions Recorded Confirmed Type ipratropium-albuterol 0.5 mg-3 3 ml INHALATION [id number] PRN 08/10/17 05/05/18 History mg(2.5 mg base)/3 mL nebulization soln Aspirin [Aspirin 81mg EC Tab] 81 mg PO DAILY 09/29/17 05/05/18 History omeprazole 20 mg capsule,delayed 20 mg PO DAILY cap 11/20/17 05/05/18 History release furosemide 40 mg tablet 40 mg PO BID 01/15/18 05/05/18 History hydrocodone 7.5 mg-acetaminophen 1 tab PO Q6H PRN 01/15/18 05/05/18 History 300 mg tablet Tamsulosin HCl [Flomax 0.4mg 0.4 mg PO HS 05/05/18 05/05/18 History capsule] Allergies Allergy/AdvReac Type Severity Reaction Status Date / Time No Known Allergies Allergy Verified 02/14/18 15:41 Exam Vital signs and Labs for Last 24 Hours: Temp Pulse Resp BP Pulse Ox 98.8 F 77 16 153/100 H 100 05/05/18 20:43 05/06/18 06:30 05/06/18 06:30 05/06/18 06:30 05/06/18 06:30 Laboratory Results - last 24 hr 05/05/18 21:25: WBC 15.1 H, RBC 5.05, Hgb 13.1 L, Hct 42.6, MCV 84.2, MCH 25.9 L , MCHC 30.8 L, RDW 16.4, Plt Count 178, MPV 9.3, Neut % (Auto) 63.6, Lymph % (Auto) 23.5, [place] % (Auto) 5.4, Eos % (Auto) 6.8, Baso % (Auto) 0.8, Neut # (Auto) 9.6 H, Lymph # (Auto) 3.5, [place] # (Auto) 0.8, Eos # (Auto) 1.0 H, Baso # (Auto) 0.1, Total Counted 100, Neutrophils % (Manual) 73, Lymphocytes % (Manual) 18, Monocytes % (Manual) 7, Eosinophils % (Manual) 2, Platelet Estimate Normal, Polychromasia 1+, Hypochromasia 1+ 05/05/18 21:25: Lactate 1.5 05/05/18 21:25: Sodium 142, Potassium 4.1, Chloride 103, Carbon Dioxide 33 H, Anion Gap 10.1, BUN 10, Creatinine 1.06, Estimated Creat Clear 77, Estimated GFR 68, Est GFR ( Amer) 82, Glucose 112 H, Calcium 8.0 L, Total Bilirubin 0.3, Direct Bilirubin 0.1, Indirect Bilirubin 0.2, AST 14 L, ALT 14, Alkaline Phosphatase 112, Troponin I < 0.02, Total Protein 6.6, Albumin 2.5 L 05/05/18 22:39: Specimen Source R/r, O2 % 4.5, ABG pH 7.41, ABG pCO2 49.1 H, ABG pO2 85.8, ABG HCO3 30.1 H, ABG Total CO2 31.6 H, ABG O2 Saturation 97, ABG Base Excess 5.4 H, Tera Test Y 05/06/18 03:15: Troponin I < 0.02 05/06/18 03:30: Urine Color Yellow, Urine Appearance Clear, Urine pH 6.0, Ur Specific [place] 1.025, Urine Protein Negative, Urine Glucose (UA) Negative, Urine Ketones Negative, Urine Blood Negative, Urine Nitrate Negative, Urine Bilirubin Negative, Urine Urobilinogen 0.2, Ur Leukocyte Esterase Negative, Urine WBC 5-10 I & O for Last 24 hours: Intake & Output 05/03/18 05/04/18 05/05/18 05/06/18 11:59 11:59 11:59 11:59 Output Total 220 / 220 Balance -220 / -220 Weight 202 lb Narrative: Elderly male with mild increase respiratory rate. Speech is fluent and clear. He is alert and oriented. Pupils are reactive to light. Oropharynx is moist. Neck is without lymphadenopathy or jugular venous distention. Lungs have mixed rhonchi with expiratory wheezes and bibasilar rales left greater than right. Heart has a regular rate and rhythm. Abdomen is soft and distended with active bowel sounds. Proctor catheter is in place. Patient moves all extremities. There is no edema of the lower extremities. Neurologically motor and sensory functions are intact. Gait was not tested Assessment and Plan (1) Pneumonia of left lower lobe due to infectious organism Current visit: Yes Status: Acute Category: Medical Code(s): J18.1 - Lobar pneumonia, unspecified organism (2) Acute and chronic respiratory failure Current visit: No Status: Acute Category: Medical Code(s): J96.20 - Acute and chronic respiratory failure, unspecified whether with hypoxia or hypercapnia (3) CAD (coronary artery disease) Current visit: No Status: Chronic Qualifiers: Coronary Disease-Associated Artery/Lesion type: [place] artery [place] vs. transplanted heart: [place] heart Associated angina: with stable angina Qualified Code(s): I25.118 - Atherosclerotic heart disease of [place] coronary artery with other forms of angina pectoris Category: Medical Code(s): I25.10 - Atherosclerotic heart disease of [place] coronary artery without angina pectoris (4) COPD (chronic obstructive pulmonary disease) Current visit: No Status: Chronic Qualifiers: COPD type: unspecified COPD Qualified Code(s): J44.9 - Chronic obstructive pulmonary disease, unspecified Category: Medical Code(s): J44.9 - Chronic obstructive pulmonary disease, unspecified - Assessment and plan all Dx Assessment and Plan for all problems:: Patient has been admitted and placed on IV Solu-Medrol along with duo nebs and cefepime and Levaquin due to his history of Pseudomonas. Await sputum and blood cultures. Patient will be given home medicines although I will give him intravenous Lasix instead of oral Lasix.
[2018-05-06 07:40] LABS: Basophils % 0.2 % (0.1-2.0); Eosinophils % 0.2 % (0.1-12.0); Hematocrit 45.1 % (42.0-52.0); Hemoglobin 13.7 g/dL (14.1-18.0); Lymphocytes # 1.1 K/mm3 (0.7-4.5); Lymphocytes % 9.1 % (10-50); Mean Corpuscular HGB Conc 30.4 g/dL (31.8-35.4); Mean Corpuscular Hemoglobin 25.4 pg (27.0-31.2); Mean Corpuscular Volume 83.7 fl (80-94); Mean Platelet Volume 8.8 fl (7.4-10.4); Monocytes # 0.2 K/mm3 (0.1-1.0); Monocytes % 1.7 % (1.7-9.3); Neutrophils # 11.1 K/mm3 (1.8-7.8); Neutrophils % 88.8 % (37.0-80.0); Platelet Count 183 K/mm3 (142-424); Red Blood Count 5.39 M/mm3 (4.60-6.20); Red Cell Distribution Width 16.3 % (11.5-17.5); White Blood Count 12.5 K/mm3 (4.8-10.8)
[2018-05-06 07:52] LABS: Anion Gap 12.5 mEq/L (5-15); Calcium 8.2 mg/dL (8.5-10.1); Potassium 4.5 mmoL/L (3.5-5.1)
[2018-05-06 09:32] LABS: Lymphocytes % 2 % (10-50); Neutrophils % 90 % (42-76); RBC Morphology Normal; Total Cells Counted 100
--- NOTE | 2018-05-06 10:14 | Pharmacy Consult Notes ---
- Pharmacy Consult Date: 05/06/18 Time: 10:05 Referring provider: DR. BLANCO Reason for Consult:: VANCOMYCIN DOSING Allergies and ADEs:: Allergies Allergy/AdvReac Type Severity Reaction Status Date / Time No Known Allergies Allergy Verified 02/14/18 15:41 Home Medications:: Home Medications Medication Instructions Recorded Confirmed Type ipratropium-albuterol 0.5 mg-3 3 ml INHALATION [id number] PRN 08/10/17 05/05/18 History mg(2.5 mg base)/3 mL nebulization soln Aspirin [Aspirin 81mg EC Tab] 81 mg PO DAILY 09/29/17 05/05/18 History omeprazole 20 mg capsule,delayed 20 mg PO DAILY cap 11/20/17 05/05/18 History release furosemide 40 mg tablet 40 mg PO BID 01/15/18 05/05/18 History Tamsulosin HCl [Flomax 0.4mg 0.4 mg PO HS 05/05/18 05/05/18 History capsule] Hydrocodone/Acetaminophen 1 tab PO Q8H PRN 05/06/18 05/06/18 History [Hydrocodone-Acetamin 7.5-325] Height: 1.8 m Weight: 91.626 kg Laboratory Results:: Laboratory Results - last 24 hr 05/05/18 21:25: WBC 15.1 H, RBC 5.05, Hgb 13.1 L, Hct 42.6, MCV 84.2, MCH 25.9 L , MCHC 30.8 L, RDW 16.4, Plt Count 178, MPV 9.3, Neut % (Auto) 63.6, Lymph % (Auto) 23.5, [place] % (Auto) 5.4, Eos % (Auto) 6.8, Baso % (Auto) 0.8, Neut # (Aut o) 9.6 H, Lymph # (Auto) 3.5, [place] # (Auto) 0.8, Eos # (Auto) 1.0 H, Baso # (Auto) 0.1, Total Counted 100, Neutrophils % (Manual) 73, Lymphocytes % (Manual) 18, Monocytes % (Manual) 7, Eosinophils % (Manual) 2, Platelet Estimate Normal, Polychromasia 1+, Hypochromasia 1+ 05/05/18 21:25: Lactate 1.5 05/05/18 21:25: Sodium 142, Potassium 4.1, Chloride 103, Carbon Dioxide 33 H, Anion Gap 10.1, BUN 10, Creatinine 1.06, Estimated Creat Clear 77, Estimated GFR 68, Est GFR ( Amer) 82, Glucose 112 H, Calcium 8.0 L, Total Bilirubin 0.3, Direct Bilirubin 0.1, Indirect Bilirubin 0.2, AST 14 L, ALT 14, Alkaline Phosphatase 112, Troponin I < 0.02, Total Protein 6.6, Albumin 2.5 L 05/05/18 22:39: Specimen Source R/r, O2 % 4.5, ABG pH 7.41, ABG pCO2 49.1 H, ABG pO2 85.8, ABG HCO3 30.1 H, ABG Total CO2 31.6 H, ABG O2 Saturation 97, ABG Base Excess 5.4 H, Tera Test Y 05/06/18 03:15: Troponin I < 0.02 05/06/18 03:30: Urine Color Yellow, Urine Appearance Clear, Urine pH 6.0, Ur Specific [place] 1.025, Urine Protein Negative, Urine Glucose (UA) Negative, Urine Ketones Negative, Urine Blood Negative, Urine Nitrate Negative, Urine Bilirubin Negative, Urine Urobilinogen 0.2, Ur Leukocyte Esterase Negative, Urine WBC 5-10 05/06/18 06:35: Troponin I < 0.02 05/06/18 07:30: WBC 12.5 H, RBC 5.39, Hgb 13.7 L, Hct 45.1, MCV 83.7, MCH 25.4 L , MCHC 30.4 L, RDW 16.3, Plt Count 183, MPV 8.8, Neut % (Auto) 88.8 H, Lymph % (Auto) 9.1 L, [place] % (Auto) 1.7, Eos % (Auto) 0.2, Baso % (Auto) 0.2, Neut # (Auto) 11.1 H, Lymph # (Auto) 1.1, [place] # (Auto) 0.2, Eos # (Auto) 0.0, Baso # (Auto) 0.0, Total Counted 100, Neutrophils % (Manual) 90 H, Band Neutrophils % 1.0, Lymphocytes % (Manual) 2 L, Atypical Lymphs % 7.0, Platelet Estimate Normal, RBC Morphology Normal 05/06/18 07:30: Sodium 138, Potassium 4.5, Chloride 102, Carbon Dioxide 28, Anion Gap 12.5, BUN 14 D, Creatinine 1.33 H D, Estimated Creat Clear 61, Estimated GFR 52 L, Est GFR ( Amer) 63 D, Glucose 154 H D, Calcium 8.2 L Medical History: Reports:: Arrhythmia, Asthma, Atrial Fibrillation, Chronic Obstructive Pulmonary Disease (COPD), Home Oxygen, Hypertension, Internal Pacemaker, Lung Disease, Kidney Stones, Myocardial Infarction Denies:: Cancer, Diabetes Mellitus Type 1, Diabetes Mellitus Type 2, MRSA Assessment and Plan (1) Pneumonia of left lower lobe due to infectious organism Current visit: Yes Status: Acute Category: Medical Code(s): J18.1 - Lobar pneumonia, unspecified organism (2) Acute and chronic respiratory failure Current visit: No Status: Acute Category: Medical Code(s): J96.20 - Acute and chronic respiratory failure, unspecified whether with hypoxia or hypercapnia (3) CAD (coronary artery disease) Current visit: No Status: Chronic Qualifiers: Coronary Disease-Associated Artery/Lesion type: [place] artery [place] vs. t ransplanted heart: [place] heart Associated angina: with stable angina Qualified Code(s): I25.118 - Atherosclerotic heart disease of [place] coronary artery with other forms of angina pectoris Category: Medical Code(s): I25.10 - Atherosclerotic heart disease of [place] coronary artery without angina pectoris (4) COPD (chronic obstructive pulmonary disease) Current visit: No Status: Chronic Qualifiers: COPD type: unspecified COPD Qualified Code(s): J44.9 - Chronic obstructive pulmonary disease, unspecified Category: Medical Code(s): J44.9 - Chronic obstructive pulmonary disease, unspecified - Assessment and plan all Dx Assessment and Plan for all problems:: BASED ON PATIENT FACTORS, RECOMMEND VANCOMYCIN 1750 MG IV Q18H. WILL OBTAIN VANCOMYCIN TROUGH LEVEL PRIOR TO 4TH DOSE. PHARMACY WILL FOLLOW DAILY AND ADJUST APPROPRIATE.
--- NOTE | 2018-05-06 14:41 | Pharmacy Consult Notes ---
[facility] Pharmacy VTE Monitoring - Patient Demographics Admission date: 05/06/18 Report Date: 05/06/18 Time: 14:41 Allergies/Adverse Reactions: Patient Allergies No Known Allergies Allergy (Verified 02/14/18 15:41) Height: 1.83 m Weight: 100.924 kg Patient Problems: Current Active Problems Community acquired pneumonia (Acute) COPD exacerbation (Acute) Pneumonia of left lower lobe due to infectious organism (Acute) - VTE Risk Labs: VTE Related Lab Results Hgb 13.7 g/dL (14.1-18.0) L 05/06/18 07:30 Hct 45.1 % (42.0-52.0) 05/06/18 07:30 Plt Count 183 K/mm3 (142-424) 05/06/18 07:30 BUN 14 mg/dL (7-18) D 05/06/18 07:30 Creatinine 1.33 mg/dL (0.70-1.30) H D 05/06/18 07:30 Estimated Creat Clear 61 mL/min (50-200) 05/06/18 07:30 Was VTE Risk Assessment Performed: Yes VTE Risk Level: Very Low Risk - Prophylaxis VTE Prophylaxis Ordered?: Yes Types of VTE Prophylaxis: TEDS Knee High Location of Applied Device: Bilateral Lower Extremeties
[2018-05-07 05:55] LABS: Basophils % 0.1 % (0.1-2.0); Hematocrit 40.7 % (42.0-52.0); Hemoglobin 12.5 g/dL (14.1-18.0); Lymphocytes # 1.2 K/mm3 (0.7-4.5); Lymphocytes % 8.4 % (10-50); Mean Corpuscular HGB Conc 30.8 g/dL (31.8-35.4); Mean Corpuscular Hemoglobin 25.6 pg (27.0-31.2); Mean Corpuscular Volume 83.2 fl (80-94); Mean Platelet Volume 9.3 fl (7.4-10.4); Monocytes # 0.3 K/mm3 (0.1-1.0); Monocytes % 2.3 % (1.7-9.3); Neutrophils # 13.1 K/mm3 (1.8-7.8); Neutrophils % 89.2 % (37.0-80.0); Platelet Count 190 K/mm3 (142-424); Red Cell Distribution Width 16.5 % (11.5-17.5); White Blood Count 14.6 K/mm3 (4.8-10.8)
[2018-05-07 06:05] LABS: Anion Gap 11.3 mEq/L (5-15); Calcium 7.8 mg/dL (8.5-10.1); Potassium 4.3 mmoL/L (3.5-5.1)
[2018-05-07 07:20] LABS: Lymphocytes % 8 % (10-50); Monocytes % 2 % (2-9); Neutrophils % 89 % (42-76); Total Cells Counted 100
[2018-05-07 07:21] LABS: Hypochromasia 1+
--- NOTE | 2018-05-07 07:23 | Progress Note ---
Internal Medicine - PN: Subj *Date: 05/07/18 *Time: 07:21 Interval history: Patient reports mild improvement in dyspnea as well as abdominal distention. Cough continues to be productive of multicolored sputum. Patient did not have any fevers overnight. He has been ambulating without difficulty. Exam Vital signs and Labs for Last 24 Hours: Temp Pulse Resp BP Pulse Ox 97.8 F 80 18 114/68 95 05/07/18 04:00 05/07/18 05:59 05/07/18 04:00 05/07/18 04:00 05/07/18 05:59 Laboratory Results - last 24 hr 05/06/18 06:35: Troponin I < 0.02 05/06/18 07:30: WBC 12.5 H, RBC 5.39, Hgb 13.7 L, Hct 45.1, MCV 83.7, MCH 25.4 L , MCHC 30.4 L, RDW 16.3, Plt Count 183, MPV 8.8, Neut % (Auto) 88.8 H, Lymph % (Auto) 9.1 L, [place] % (Auto) 1.7, Eos % (Auto) 0.2, Baso % (Auto) 0.2, Neut # (Auto) 11.1 H, Lymph # (Auto) 1.1, [place] # (Auto) 0.2, Eos # (Auto) 0.0, Baso # (Auto) 0.0, Total Counted 100, Neutrophils % (Manual) 90 H, Band Neutrophils % 1.0, Lymphocytes % (Manual) 2 L, Atypical Lymphs % 7.0, Platelet Estimate Normal, RBC Morphology Normal 05/06/18 07:30: Sodium 138, Potassium 4.5, Chloride 102, Carbon Dioxide 28, Anion Gap 12.5, BUN 14 D, Creatinine 1.33 H D, Estimated Creat Clear 61, Estimated GFR 52 L, Est GFR ( Amer) 63 D, Glucose 154 H D, Calcium 8.2 L 05/06/18 09:30: Troponin I < 0.02 05/06/18 11:45: Troponin I < 0.02 05/06/18 14:28: Troponin I < 0.02 05/06/18 17:40: Troponin I < 0.02 05/07/18 05:10: WBC 14.6 H, RBC 4.90, Hgb 12.5 L, Hct 40.7 L, MCV 83.2, MCH 25.6 L, MCHC 30.8 L, RDW 16.5, Plt Count 190, MPV 9.3, Neut % (Auto) 89.2 H, Lymph % (Auto) 8.4 L, [place] % (Auto) 2.3, Eos % (Auto) 0.0 L, Baso % (Auto) 0.1, Neut # (Auto) 13.1 H, Lymph # (Auto) 1.2, [place] # (Auto) 0.3, Eos # (Auto) 0.0, Baso # (Auto) 0.0 05/07/18 05:10: Sodium 133 L, Potassium 4.3, Chloride 97 L, Carbon Dioxide 29, Anion Gap 11.3, BUN 24 H D, Creatinine 1.32 H, Estimated Creat Clear 68, Estimated GFR 53 L, Est GFR ( Amer) 64, Glucose 151 H, Calcium 7.8 L I & O for Last 24 hours: Intake & Output 05/04/18 05/05/18 05/06/18 05/07/18 11:59 11:59 11:59 11:59 Intake Total 480 / 480 Output Total 220 / 220 4200 / 4200 Balance -220 / -220 -3720 / -3720 Weight 222 lb 8 oz 222 lb 8 oz Narrative: He looks comfortable, without tachypnea this morning. Lung exam reveals diffuse expiratory wheezes along with inspiratory rhonchi and basilar rales. Heart has a regular rate and rhythm. Abdomen is mildly distended but soft and has active bowel sounds. Assessment and Plan (1) Pneumonia of left lower lobe due to infectious organism Current visit: Yes Status: Acute Category: Medical Code(s): J18.1 - Lobar pneumonia, unspecified organism (2) Acute and chronic respiratory failure Current visit: No Status: Acute Category: Medical Code(s): J96.20 - Acute and chronic respiratory failure, unspecified whether with hypoxia or hypercapnia (3) CAD (coronary artery disease) Current visit: No Status: Chronic Qualifiers: Coronary Disease-Associated Artery/Lesion type: [place] artery [place] vs. transplanted heart: [place] heart Associated angina: with stable angina Qualified Code(s): I25.118 - Atherosclerotic heart disease of [place] coronary artery with other forms of angina pectoris Category: Medical Code(s): I25.10 - Atherosclerotic heart disease of [place] coronary artery without angina pectoris (4) COPD (chronic obstructive pulmonary disease) Current visit: No Status: Chronic Qualifiers: COPD type: unspecified COPD Qualified Code(s): J44.9 - Chronic obstructive pulmonary disease, unspecified Category: Medical Code(s): J44.9 - Chronic obstructive pulmonary disease, unspecified (5) Chronic diastolic CHF (congestive heart failure), NYHA class 3 Current visit: Yes Status: Acute Category: Medical Code(s): I50.32 - Chronic diastolic (congestive) heart failure - Assessment and plan all Dx Assessment and Plan for all problems:: 1. Continue antibiotics and await cultures 2. Continue IV Lasix twice daily and I am going to add oral spironolactone 3. Encourage patient to ambulate. Should patient continue to improve at his current right he can likely be discharged tomorrow
[2018-05-08 06:05] LABS: Basophils % 0.1 % (0.1-2.0); Eosinophils % 0.1 % (0.1-12.0); Hematocrit 43.1 % (42.0-52.0); Hemoglobin 13.1 g/dL (14.1-18.0); Lymphocytes # 1.2 K/mm3 (0.7-4.5); Lymphocytes % 8.6 % (10-50); Mean Corpuscular HGB Conc 30.3 g/dL (31.8-35.4); Mean Corpuscular Hemoglobin 25.1 pg (27.0-31.2); Mean Corpuscular Volume 82.7 fl (80-94); Mean Platelet Volume 8.7 fl (7.4-10.4); Monocytes # 0.5 K/mm3 (0.1-1.0); Monocytes % 3.4 % (1.7-9.3); Neutrophils # 11.9 K/mm3 (1.8-7.8); Neutrophils % 87.8 % (37.0-80.0); Platelet Count 198 K/mm3 (142-424); Red Cell Distribution Width 16.7 % (11.5-17.5); White Blood Count 13.5 K/mm3 (4.8-10.8)
[2018-05-08 06:56] LABS: Anion Gap 10.6 mEq/L (5-15); Calcium 7.7 mg/dL (8.5-10.1); Potassium 4.6 mmoL/L (3.5-5.1)
--- NOTE | 2018-05-08 07:23 | Discharge Summary ---
General - General Admission date:: 05/06/18 Discharge date: 05/08/18 HPI HPI: 77-year-old male with COPD/chronic bronchitis presented to the emergency department with increasing shortness of breath over the last 24 hours. Patient normally has a cough productive of white sputum but sputum had become brown and yellow in color. While patient did not detect any fevers at home he did note that he awoke overnight and had broken out in a sweat. He felt more dyspneic above baseline. As the day went on he felt more more like "I was going to smother". This prompted him to seek treatment at the emergency department. In the ER he underwent evaluation. Chest x-ray was concerning for pneumonia. Sputum culture and blood cultures were performed. Patient was started on cefepime and Levaquin due to history of Pseudomonas and admitted. This morning patient states "I might feel little better". Hospital Course Hospital Course: Patient was admitted and placed on broad-spectrum antibiotics. Official chest x -ray report was interpreted as likely mild fluid overload with chronic CHF as opposed to infiltrate. Patient was continued on Levaquin and cefepime hospitalization due to history of Pseudomonas. Blood cultures were negative x2. Sputum culture was not processed at the time of discharge. Patient had room air sat of 98% on admission and his oxygen sats stayed in the 90s during most of the hospitalization except for one brief episode where he dropped down to 89%. Patient was kept on nasal cannula during hospitalization and will continue to use supplemental oxygen at home on an as-needed basis. Patient's lung exam is chronically abnormal and always has mixed rhonchi and wheezes with or without rales. This hospitalization was no different and well wheezing decreased slightly while hospitalized rhonchi remain unchanged. Patient's dyspnea improved a little each day and he was discharged home on May 08. Patient will be discharged with Levaquin, prednisone, spironolactone, Senokot S as new prescriptions. Patient will follow-up in my office on Sunday, May 13. When patient presented he also had abdominal distention which has been passing over the last several months. Patient takes Lasix twice daily for diastolic heart failure that is chronic. Spironolactone was added to his regimen while hospitalized will be continued at discharge. Objective Vital signs: Temp Pulse Resp BP Pulse Ox 98.0 F 79 16 135/63 98 05/08/18 04:00 05/08/18 06:03 05/08/18 04:00 05/08/18 04:00 05/08/18 06:03 Results Labs on day of discharge: Labs from last 24 hours 05/08/18 05/08/18 05/07/18 05:52 05:52 05:10 WBC 13.5 H RBC 5.20 Hgb 13.1 L Hct 43.1 MCV 82.7 MCH 25.1 L MCHC 30.3 L RDW 16.7 Plt Count 198 MPV 8.7 Neut % (Auto) 87.8 H Lymph % (Auto) 8.6 L [place] % (Auto) 3.4 Eos % (Auto) 0.1 Baso % (Auto) 0.1 Neut # (Auto) 11.9 H Lymph # (Auto) 1.2 [place] # (Auto) 0.5 Eos # (Auto) 0.0 Baso # (Auto) 0.0 Total Counted 100 Neutrophils % (Manual) 89 H Lymphocytes % (Manual) 8 L Atypical Lymphs % 1.0 Monocytes % (Manual) 2 Platelet Estimate Normal Hypochromasia 1+ Sodium 133 L Potassium 4.6 Chloride 97 L Carbon Dioxide 30 Anion Gap 10.6 BUN 34 H D Creatinine 1.32 H Estimated Creat Clear 67 Estimated GFR 53 L Est GFR ( Amer) 64 Glucose 124 H Calcium 7.7 L Preliminary micro results at discharge 05/05/18 21:25 Blood Culture - Preliminary Blood NO GROWTH AFTER 48 HOURS 05/05/18 21:25 Blood Culture - Preliminary Blood NO GROWTH AFTER 48 HOURS DS: Diagnosis - Discharge Diagnosis (1) Pneumonia of left lower lobe due to infectious organism Status: Acute (2) Acute and chronic respiratory failure Status: Acute (3) CAD (coronary artery disease) Status: Chronic (4) COPD (chronic obstructive pulmonary disease) Status: Chronic (5) Chronic diastolic CHF (congestive heart failure), NYHA class 3 Status: Chronic Discharge Plan - Patient Discharge Instructions ACTIVITY: Continue current activity DIET: continue same diet Patient Instructions: Low-Sodium Diet - Follow up Plan Follow up with: Sharan Tariq MD [Primary Care Provider] - 05/13/18 1:30 pm Disposition: Home, Self-Long Term Medications: Home Medications Medication Instructions Recorded Confirmed Type Aspirin [Aspirin 81mg EC Tab] 81 mg PO DAILY 09/29/17 05/06/18 History omeprazole 20 mg capsule,delayed 40 mg PO DAILY cap 11/20/17 05/06/18 History release furosemide 40 mg tablet 40 mg PO DAILY 01/15/18 05/06/18 History Tamsulosin HCl [Flomax 0.4mg 0.4 mg PO HS 05/05/18 05/06/18 History capsule] Hydrocodone/Acetaminophen 1 tab PO Q8H PRN 05/06/18 05/06/18 History [Hydrocodone-Acetamin 7.5-325] diphenhydrAMINE HCl [Antihistamine] 25 mg PO Q8HP PRN 05/06/18 05/06/18 History Fluticasone/Umeclidin/Vilanter 1 puff IH DAILY 05/07/18 05/07/18 History [Trelegy Ellipta 100-62.5-25] Ipratropium/Albuterol Sulfate 3 ml IH [id number] PRN 05/07/18 05/07/18 History [Iprat-Albut 0.5-3(2.5) mg/3 ml] Prescriptions/Medication Reconciliation: New levoFLOXacin [Levaquin 750mg tablet] 750 mg PO DAILY #10 tab predniSONE [Deltasone 20mg tablet] 20 mg PO BID #10 tablet Spironolactone 25 mg PO DAILY #30 tablet Sennosides/Docusate Sodium [Senokot-S Tablet] 2 each PO HS #60 tablet Continue furosemide 40 mg tablet 40 mg PO DAILY omeprazole 20 mg capsule,delayed release 40 mg PO DAILY cap Aspirin [Aspirin 81mg EC Tab] 81 mg PO DAILY Hydrocodone/Acetaminophen [Hydrocodone-Acetamin 7.5-325] 1 tab PO Q8H PRN PRN Reason: pain Ipratropium/Albuterol Sulfate [Iprat-Albut 0.5-3(2.5) mg/3 ml] 3 ml IH [id number] PRN PRN Reason: Shortness Of Breath Fluticasone/Umeclidin/Vilanter [Trelegy Ellipta 100-62.5-25] 1 puff IH DAILY Tamsulosin HCl [Flomax 0.4mg capsule] 0.4 mg PO HS diphenhydrAMINE HCl [Antihistamine] 25 mg PO Q8HP PRN PRN Reason: ALLERGIES
[2018-05-08 08:05] LABS: Lymphocytes % 8 % (10-50); Monocytes % 4 % (2-9); Neutrophils % 88 % (42-76); Total Cells Counted 100
[2018-05-08 08:06] LABS: Hypochromasia 1+
== END 2018-05-08 10:32 | disposition home or self-care (01) ==
LOC: 2ND 20:42 → ER 20:42 → OBSVTOIN 05-06 00:27 → 2ND 05-06 09:26
PROVIDERS: ADMIT Family Medicine; ATTEND Family Medicine

== ENCOUNTER → 2018-05-21 12:57 | Outpatient (POV) | payer MEDICARE, MEDICAID, SELFPAY | PROVIDERS: Visit Provider Internal Medicine | DX: Z00.00 Encounter for general adult medical examination without abnormal findings (principal) ==

== ENCOUNTER 2018-08-21 11:51 | Observation (INO) ==
--- NOTE | 2018-08-21 11:57 | Emergency Department Note ---
ED Disposition Clinical Impression: CHF exacerbation Qualifiers: Heart failure type: unspecified Qualified Code(s): I50.9 - Heart failure, unspecified Disposition: Admitted as Observation Condition on Discharge: Fair - Critical Care Critical Care Time: No Attestation: On , the high probability of a clinically significant, sudden or life threatening deterioration of the following system(s) required my full and direct attention, intervention and personal management. The time I documented below is in addition to time spent performing reported procedures but includes the follo wing listed in this critical care notation. Medical Decision Making - [place] Inquiry Pt receiving controlled substance: No Vital Signs: 08/21/18 11:51 08/21/18 12:16 08/21/18 12:37 Temperature 97.9 F Temperature Source Oral Pulse Rate Pulse Rate [Apical] 80 82 105 H Pulse Rate [Radial] Respiratory Rate 32 H Blood Pressure Blood Pressure [Left Arm] Blood Pressure [Right Arm] 117/87 126/89 109/74 L Blood Pressure Mean [Left Arm] Blood Pressure Mean [Right Arm] 97 101 85 Blood Pressure Source Blood Pressure Source [Left Arm] Blood Pressure Source [Right Arm] Automatic Cuff Automatic Cuff Automatic Cuff Blood Pressure Position Blood Pressure Position [Left Arm] Blood Pressure Position [Right Arm] Sitting Sitting Sitting 02 Sat by Pulse Oximetry 95 97 97 Oxygen Delivery Method Nasal Cannula Nasal Cannula Nasal Cannula Oxygen Flow Rate (LPM) 2 2 2 08/21/18 12:41 08/21/18 13:03 08/21/18 13:48 Temperature Temperature Source Pulse Rate 92 H Pulse Rate [Apical] 80 80 Pulse Rate [Radial] Respiratory Rate Blood Pressure Blood Pressure [Left Arm] Blood Pressure [Right Arm] 118/74 137/82 Blood Pressure Mean [Left Arm] Blood Pressure Mean [Right Arm] 88 100 Blood Pressure Source Blood Pressure Source [Left Arm] Blood Pressure Source [Right Arm] Automatic Cuff Automatic Cuff Blood Pressure Position Blood Pressure Position [Left Arm] Blood Pressure Position [Right Arm] Sitting 02 Sat by Pulse Oximetry 97 94 L Oxygen Delivery Method Nasal Cannula Nasal Cannula Oxygen Flow Rate (LPM) 2 2 08/21/18 15:06 08/21/18 15:36 08/21/18 16:20 Temperature Temperature Source Pulse Rate Pulse Rate [Apical] 91 H 80 91 H Pulse Rate [Radial] Respiratory Rate 20 Blood Pressure Blood Pressure [Left Arm] Blood Pressure [Right Arm] 138/88 136/90 123/50 L Blood Pressure Mean [Left Arm] Blood Pressure Mean [Right Arm] 104 105 74 Blood Pressure Source Blood Pressure Source [Left Arm] Blood Pressure Source [Right Arm] Automatic Cuff Automatic Cuff Automatic Cuff Blood Pressure Position Blood Pressure Position [Left Arm] Blood Pressure Position [Right Arm] Sitting Sitting Sitting 02 Sat by Pulse Oximetry 97 98 96 Oxygen Delivery Method Room Air Room Air Nasal Cannula Oxygen Flow Rate (LPM) 2 08/21/18 17:00 08/21/18 17:08 08/21/18 17:49 Temperature 97.6 F Temperature Source Oral Pulse Rate 86 Pulse Rate [Apical] Pulse Rate [Radial] 79 Respiratory Rate 22 Blood Pressure 123/47 L Blood Pressure [Left Arm] 140/80 Blood Pressure [Right Arm] Blood Pressure Mean [Left Arm] 100 Blood Pressure Mean [Right Arm] Blood Pressure Source Automatic Cuff Blood Pressure Source [Left Arm] Automatic Cuff Blood Pressure Source [Right Arm] Blood Pressure Position Sitting Blood Pressure Position [Left Arm] Sitting Blood Pressure Position [Right Arm] 02 Sat by Pulse Oximetry 96 Oxygen Delivery Method Nasal Cannula Nasal Cannula Nasal Cannula Oxygen Flow Rate (LPM) 3 3 - Lab Data Lab Results 08/21/18 12:38: WBC 15.0 H, RBC 5.14, Hgb 13.4 L, Hct 43.9, MCV 85.4, MCH 26.0 L , MCHC 30.5 L, RDW 17.1, Plt Count 120 L, MPV 9.5, Neut % (Auto) 70.4, Lymph % (Auto) 18.6, [place] % (Auto) 5.1, Eos % (Auto) 5.1, Baso % (Auto) 0.7, Neut # ( Auto) 10.6 H, Lymph # (Auto) 2.8, [place] # (Auto) 0.8, Eos # (Auto) 0.8 H, Baso # (Auto) 0.1, Total Counted 100, Neutrophils % (Manual) 75, Lymphocytes % (Manual) 18, Monocytes % (Manual) 6, Eosinophils % (Manual) 1, Platelet Estimate Slight decrease, Hypochromasia 1+ 08/21/18 12:38: Sodium 142, Potassium 4.6, Chloride 104, Carbon Dioxide 31, Anion Gap 11.6, BUN 12, Creatinine 1.20, Estimated Creat Clear 72, Estimated GFR 59, Est GFR ( Amer) 71, Glucose 94, Calcium 8.5, Total Bilirubin 0.8, AST 15, ALT 18, Alkaline Phosphatase 105, Troponin I < 0.02, Total Protein 6.7, Albumin 2.6 L, Globulin 4.1 H, Albumin/Globulin Ratio 0.6 L 08/21/18 12:38: Lactate 1.9 08/21/18 12:38: B-Natriuretic Peptide 176 H 08/21/18 15:05: Urine Color Yellow, Urine Appearance Clear, Urine pH 7.0, Ur Specific [place] 1.010, Urine Protein Negative, Urine Glucose (UA) Negative, Urine Ketones Negative, Urine Blood Negative, Urine Nitrate Negative, Urine Bilirubin Negative, Urine Urobilinogen 0.2, Ur Leukocyte Esterase Negative, Urine RBC None, Urine WBC Occasional, Ur Squamous Epith Cells None, Urine Bacteria Trace Result diagrams: 08/21/18 12:38 08/21/18 12:38 Orders (Tests/Meds): ED MEDICATIONS Generic Name Dose Route Start Last Admin Trade Name Freq PRN Reason Stop Dose Admin Hydrocodone Bitart/Acetaminophen 1 tab 08/21/18 16:51 [place] 7.5/325mg Tablet PO 09/20/18 16:50 Q8H PRN pain Albuterol/Ipratropium 3 ml 08/21/18 20:00 Duoneb 3ml Neb IH 09/20/18 19:59 QIDRT [facility] Aspirin 81 mg 08/22/18 09:00 Aspirin 81mg Enteric Coated Tablet PO 09/21/18 08:59 DAILY PATRICK Azithromycin mg 08/21/18 16:51 Zithromax 250mg Tablet PO 09/04/18 16:50 MOWEFR [facility] Protocol Furosemide 40 mg 08/22/18 09:00 Lasix 40mg Tablet PO 09/21/18 08:59 DAILY [facility] Furosemide 40 mg 08/21/18 21:00 Lasix 40mg/4ml Vial IV 08/21/18 21:01 ONCE ONE Methylprednisolone Sodium Succinate 80 mg 08/21/18 12:00 08/21/18 17:28 Solu-Medrol 125mg/2ml Vial IV 09/20/18 11:59 Not Given Q8H [facility] Non-Formulary Medication 20 meq 08/22/18 09:00 Potassium Chloride [Potassium Chloride] PO 09/21/18 08:59 DAILY [facility] Sodium Chloride 10 ml 08/21/18 16:51 Saline Flush 10ml Syringe IV 09/20/18 12:11 NEEDED PRN Maintain IV Site Sodium Chloride 3 ml 08/21/18 16:51 Sodium Chloride 3% 15ml [facility] 09/20/18 15:40 ONCE PRN INDUCE [employer]CTION Spironolactone 25 mg 08/22/18 09:00 Aldactone 25mg Tablet PO 09/21/18 08:59 DAILY PATRICK Tamsulosin HCl 0.4 mg 08/21/18 21:00 Flomax 0.4mg Capsule PO 09/20/18 20:59 HS [facility] Discontinued Medications Generic Name Dose Route Start Last Admin Trade Name Freq PRN Reason Stop Dose Admin Albuterol/Ipratropium 3 ml 08/21/18 12:13 08/21/18 12:30 Duoneb 3ml [facility] 08/21/18 12:14 3 ml ONCE ONE Administration Furosemide 80 mg 08/21/18 14:41 08/21/18 15:05 Lasix 40mg/4ml Vial IV 08/21/18 14:42 80 mg ONCE ONE Administration Methylprednisolone Sodium Succinate 125 mg 08/21/18 12:13 08/21/18 12:18 Solu-Medrol 125mg/2ml Vial IV 08/21/18 12:14 125 mg ONCE ONE Administration Sodium Chloride 10 ml 08/21/18 12:12 Saline Flush 10ml Syringe IV 09/20/18 12:11 NEEDED PRN Maintain IV Site Sodium Chloride 3 ml 08/21/18 15:41 Sodium Chloride 3% 15ml [facility] 09/20/18 15:40 ONCE PRN INDUCE SPUTUM [employer]LECTION ORDERS Category Date Time Status Blood Culture Stat Micro 08/21/18 12:38 Received - ECG Data Tracing #1 EKG interpreted by Jesse Mascorro MD: Rhythm: Ventricular paced rhythm Rate: 80 No evidence of acute ischemia or injury General Adult HPI - General Stated complaint: SOA Time Seen by Provider: 08/21/18 11:58 - History of Present Illness HPI narrative: Poor historian. Brought in by ambulance. States that he has pain in his shoulders, chest, and knees which is always there for years, but feels worse for the past week and a half. Also complains of shortness of air. This is also worse over the past 24 hours. Has a lot of swelling in his legs for the past 3 weeks, comes and goes. Swelling is worse than usual. Says that he is "filling up with fluid". Has a cough productive of yellow sputum. Has been on antibiotics for "bronchitis", "for 3-4 months". Has a bottle of azithromycin with him that was prescribed on 07/22/18, 1 pill to be taken on Mondays, Wednesdays, and Fridays, 12 dispensed. There are still 6 pills in the bottle. Primary care providers Dr. Tariq. Teletypesetter is Dr. Comer. - Related Data Home Medications Medication Instructions Recorded Confirmed Aspirin [Aspirin 81mg EC Tab] 81 mg PO DAILY 09/29/17 08/21/18 furosemide 40 mg tablet 40 mg PO DAILY 01/15/18 08/21/18 Tamsulosin HCl [Flomax 0.4mg 0.4 mg PO HS 05/05/18 08/21/18 capsule] Hydrocodone/Acetaminophen 1 tab PO Q8H PRN 05/06/18 08/21/18 [Hydrocodone-Acetamin 7.5-325] diphenhydrAMINE HCl [Antihistamine] 25 mg PO Q8HP PRN 05/06/18 08/21/18 Fluticasone/Umeclidin/Vilanter 1 puff IH DAILY 05/07/18 08/21/18 [Trelegy Ellipta 100-62.5-25] Ipratropium/Albuterol Sulfate 3 ml IH [id number] PRN 05/07/18 08/21/18 [Iprat-Albut 0.5-3(2.5) mg/3 ml] Spironolactone 25 mg PO DAILY 06/26/18 08/21/18 Azithromycin [Zithromax 250mg 1 tab PO MOWEFR 08/21/18 08/21/18 tab] Potassium Chloride 20 meq PO DAILY 08/21/18 08/21/18 Allergies Allergy/AdvReac Type Severity Reaction Status Date / Time No Known Allergies Allergy Verified 06/06/18 09:14 [facility] History - Hepatitis A Screen Attestation statement:: This patient has been screened for Hepatitis A risk factors. I have reviewed the patient's past medical history: Yes Medical History: Reports:: Arrhythmia, Asthma, Atrial Fibrillation, Chronic Obstructive Pulmonary Disease (COPD), Home Oxygen, Hypertension, Internal Pacemaker, Lung Disease, Kidney Stones, Myocardial Infarction Denies:: Cancer, Diabetes Mellitus Type 1, Diabetes Mellitus Type 2, MRSA Other Medical History: Reports: Arthritis Comment: Cardiac ablation for atrial fibrillation Laterality Cases: Right: Arthroscopy Knee, Bilateral: Other Other Surgeries: Yes: Hernia Repair, Pacemaker Amputation: No Fractures: No - Social History Smoking Status: Former smoker Tobacco Type: cigarettes # Packs/Day (cigarettes): 1 #Yrs smoked (if former smoker): 40 Alcohol Intake: never Alcohol Intake Frequency:: other Substance Use Type: denies use Occupational Status: retired, disabled Housing: house Household Members: spouse Family Hx:: Asthma, Cancer, Coronary Artery Disease, Hyperlipidemia, Hypertens ion ROS Obtained: Yes All systems reviewed & no additional complaints - Constitutional Constitutional: Denies fever(s) - ENT Ears, Nose, Mouth, and Throat: Denies nasal discharge, Denies sore throat - Cardiovascular Cardiovascular: Reports chest pain, Reports leg edema - Respiratory Respiratory: Yes cough, Yes dyspnea, Yes excessive phlegm production - Gastrointestinal Gastrointestingal: Denies: abdominal pain, diarrhea, vomiting - Musculoskeletal Musculoskeletal: Reports joint pain (Bilateral knees, bilateral shoulders) Physical Exam - General General appearance: alert Comment: Rattling respiratory noises from upper airway, frequent cough - Head Head exam: atraumatic, normocephalic - Eye Eye exam: Present: normal appearance, PERRL, EOMI - ENT ENT exam: Present: mucous membranes moist - Neck Neck exam: Present: normal inspection, trachea midline - Chest Chest inspection: Present: normal inspection, symmetric chest wall rise - Respiratory Respiratory exam: Present: other (Rattling upper airway noises) - Cardiovascular Cardiovascular exam: Present: regular rate, normal rhythm, normal heart sounds - Abdominal Exam Abdominal exam: Present: soft. Absent: distention, tenderness - Extremities Exam Extremities exam: Present: other (2+ pitting edema of legs bilaterally) - Neurological Exam Neurological exam: Present: alert, oriented X3 - Psychiatric Psychiatric exam: Present: normal affect, normal mood - Skin Skin exam: Present: warm, dry
[2018-08-21 13:08] LABS: Basophils # 0.1 K/mm3 (0-0.2); Basophils % 0.7 % (0.1-2.0); Eosinophils # 0.8 K/mm3 (0.0-0.4); Eosinophils % 5.1 % (0.1-12.0); Hematocrit 43.9 % (42.0-52.0); Hemoglobin 13.4 g/dL (14.1-18.0); Lymphocytes # 2.8 K/mm3 (0.7-4.5); Lymphocytes % 18.6 % (10-50); Mean Corpuscular HGB Conc 30.5 g/dL (31.8-35.4); Mean Corpuscular Volume 85.4 fl (80-94); Mean Platelet Volume 9.5 fl (7.4-10.4); Monocytes # 0.8 K/mm3 (0.1-1.0); Monocytes % 5.1 % (1.7-9.3); Neutrophils # 10.6 K/mm3 (1.8-7.8); Neutrophils % 70.4 % (37.0-80.0); Platelet Count 120 K/mm3 (142-424); Red Blood Count 5.14 M/mm3 (4.60-6.20); Red Cell Distribution Width 17.1 % (11.5-17.5)
[2018-08-21 13:23] LABS: Eosinophils % 1 % (0-3); Lymphocytes % 18 % (10-50); Monocytes % 6 % (2-9); Neutrophils % 75 % (42-76); Total Cells Counted 100
[2018-08-21 13:24] LABS: Hypochromasia 1+
[2018-08-21 13:29] LABS: Alanine Aminotransferase 18 U/L (12-78); Albumin Level 2.6 gm/dL (3.4-5.0); Albumin/Globulin Ratio 0.6 (1.1-1.8); Alkaline Phosphatase 105 U/L (46-116); Anion Gap 11.6 mEq/L (5-15); Aspartate Amino Transferase 15 U/L (15-37); Bilirubin,Total 0.8 mg/dL (0.2-1.0); Blood Urea Nitrogen 12 mg/dL (7-18); Calcium 8.5 mg/dL (8.5-10.1); Carbon Dioxide 31 mmol/L (21.0-32.0); Chloride 104 mmol/L (98-107); Globulin 4.1 gm/dl (1.3-3.2); Glucose 94 mg/dL (74-106); Potassium 4.6 mmoL/L (3.5-5.1); Sodium 142 mmol/L (136-145); Total Protein,Serum 6.7 gm/dL (6.4-8.2)
--- NOTE | 2018-08-21 15:49 | History & Physical Report ---
*Admission Date: 08/21/18 *Chief complaint: shortness of breath, swelling *History of present illness: 77 year old male presents for shortness of breath and generalized swelling. Reports symptoms started approx three weeks ago but became worse yesterday. Typically he is able to walk about 20 feet at home but has now only been able to go about ten and has to rest multiple times. Wears 3L NC at home as well. Positive for cough producing yellow sputum. Denies knowledge of any fevers, chills or cold like symptoms. He had a similar hospitalization about three months ago. [facility] History Medical History: Reports:: Arrhythmia, Asthma, Atrial Fibrillation, Congestive Heart Failure, Chronic Obstructive Pulmonary Disease (COPD), Home Oxygen, Hypertension, Internal Pacemaker, Lung Disease, Kidney Stones, Myocardial Infarction Denies:: Cancer, Diabetes Mellitus Type 1, Diabetes Mellitus Type 2, MRSA *Have you ever received a pneumonia vaccine?: No *Have you received a flu vaccine this season?: No Other Medical History: Reports: Arthritis Laterality Cases: Right: Arthroscopy Knee, Bilateral: Other Other Surgeries: Yes: Hernia Repair, Pacemaker, Other (shoulder surgery) Amputation: No Fractures: No - *Social History Smoking Status: Former smoker Tobacco Type: cigarettes # Packs/Day (cigarettes): 1 #Yrs smoked (if former smoker): 40 Alcohol Intake: never Alcohol Intake Frequency:: other Substance Use Type: denies use *Occupational Status:: retired, disabled Housing: house Household Members: spouse *Travel in the last 8 weeks: None - Psychiatric History Expresses thoughts of harming self/others: None Suicide Plan Description: No Plan Family Hx:: Asthma, Cancer, Coronary Artery Disease, Hyperlipidemia, Hypertension Review of Systems - Constitutional Denies body ache(s), Denies fever(s) - *Cardiovascular Reports shortness of breath, Reports generalized swelling, Denies chest pain, Denies irregular heart rhythm, Denies fast heart rate - *Respiratory Reports cough, Reports shortness of breath with activity Comments: yellow sputum production - *Gastrointestinal Reports bloating, Denies abdominal pain Comments: last BM yesterday - *Genitourinary Denies difficulty urinating - *Neurologic Reports weakness Meds Home Medications Medication Instructions Recorded Confirmed Type Aspirin [Aspirin 81mg EC Tab] 81 mg PO DAILY 09/29/17 08/21/18 History furosemide 40 mg tablet 40 mg PO DAILY 01/15/18 08/21/18 History Tamsulosin HCl [Flomax 0.4mg 0.4 mg PO HS 05/05/18 08/21/18 History capsule] Hydrocodone/Acetaminophen 1 tab PO Q8H PRN 05/06/18 08/21/18 History [Hydrocodone-Acetamin 7.5-325] diphenhydrAMINE HCl [Antihistamine] 25 mg PO Q8HP PRN 05/06/18 08/21/18 History Fluticasone/Umeclidin/Vilanter 1 puff IH DAILY 05/07/18 08/21/18 History [Trelegy Ellipta 100-62.5-25] Ipratropium/Albuterol Sulfate 3 ml IH [id number] PRN 05/07/18 08/21/18 History [Iprat-Albut 0.5-3(2.5) mg/3 ml] Spironolactone 25 mg PO DAILY 06/26/18 08/21/18 History Azithromycin [Zithromax 250mg 1 tab PO MOWEFR 08/21/18 08/21/18 History tab] Potassium Chloride 20 meq PO DAILY 08/21/18 08/21/18 History Allergies Allergy/AdvReac Type Severity Reaction Status Date / Time No Known Allergies Allergy Verified 06/06/18 09:14 Exam Vital signs and Labs for Last 24 Hours: Temp Pulse Resp BP Pulse Ox 97.9 F 80 32 H 136/90 98 08/21/18 11:51 08/21/18 15:36 08/21/18 11:51 08/21/18 15:36 08/21/18 15:36 Laboratory Results - last 24 hr 08/21/18 12:38: WBC 15.0 H, RBC 5.14, Hgb 13.4 L, Hct 43.9, MCV 85.4, MCH 26.0 L , MCHC 30.5 L, RDW 17.1, Plt Count 120 L, MPV 9.5, Neut % (Auto) 70.4, Lymph % (Auto) 18.6, [place] % (Auto) 5.1, Eos % (Auto) 5.1, Baso % (Auto) 0.7, Neut # (Auto) 10.6 H, Lymph # (Auto) 2.8, [place] # (Auto) 0.8, Eos # (Auto) 0.8 H, Baso # (Auto) 0.1, Total Counted 100, Neutrophils % (Manual) 75, Lymphocytes % (Manual) 18, Monocytes % (Manual) 6, Eosinophils % (Manual) 1, Platelet Estimate Slight decrease, Hypochromasia 1+ 08/21/18 12:38: Sodium 142, Potassium 4.6, Chloride 104, Carbon Dioxide 31, Anion Gap 11.6, BUN 12, Creatinine 1.20, Estimated Creat Clear 72, Estimated GFR 59, Est GFR ( Amer) 71, Glucose 94, Calcium 8.5, Total Bilirubin 0.8, AST 15, ALT 18, Alkaline Phosphatase 105, Troponin I < 0.02, Total Protein 6.7, Albumin 2.6 L, Globulin 4.1 H, Albumin/Globulin Ratio 0.6 L 08/21/18 12:38: Lactate 1.9 08/21/18 12:38: B-Natriuretic Peptide 176 H I & O for Last 24 hours: Intake & Output 08/18/18 08/19/18 08/20/18 08/21/18 23:59 23:59 23:59 23:59 Weight 215 lb - Constitutional mild distress - *Routine Respiratory Exam Present: accessory muscle use, rhonchi Comments: tachypeic - *Routine Cardiovascular Exam Present: RRR, Normal S1, Normal S2. Absent: irregular rhythm - *Routine Abdominal Exam Present: normoactive bowel sounds, firm. Absent: tenderness - *Routine Extremities Exam Present: edema. Absent: cyanosis Comments: 2-3+ chet LE edema - *Routine Skin Exam Present: intact, dry, pallor. Absent: cyanosis - *Routine Neurological Exam Present: alert, oriented X3 - Routine Psychiatric Exam Present: normal affect Assessment and Plan - Assessment and plan all Dx Assessment and Plan for all problems:: Chest Xray shows CHF with pulmonary edema and chronic pleural parenchymal changes, BNP 176. Proctor catheter anchored, lasix 80 mg given IV. duoneb and solumedrol administered. Will admit to second floor medical surgical unit for observation.
[2018-08-21 16:32] LABS: Microscopic, Urine URINE MICROSCOPIC (MICROSCOPIC)
[2018-08-21 16:35] LABS: Appearance,Urine CLEAR (Clear); Bilirubin,Urine Negative (Negative); Blood, Urine Negative (Negative); Color,Urine YELLOW (Yellow); Glucose,Urine (UA) Negative (Negative); Ketones,Urine Negative (Negative); Leukocyte Esterase,Urine Negative (Negative); Protein,Urine Negative (Negative); Urobilinogen,Urine 0.2 EU/dl (0.2)
[2018-08-21 16:54] LABS: Bacteria,Urine Trace /lpf; WBC,Urine Occasional #/hpf (0-3)
--- NOTE | 2018-08-22 07:03 | Progress Note ---
Internal Medicine - PN: Subj *Date: 08/22/18 *Time: 07:00 Interval history: Patient has no complaints this morning. He reports still feeling short of breath with very little improvement since admission. His cough is productive of sputum. Sputum culture is growing multiple organisms which based on the patient's history is likely colonization of the upper respiratory tract. Nursing staff reports a 9 pound weight loss since admission with over 1800 mL's of urine output. Patient is repeatedly reminded that he is on a 1200 mL fluid restriction Exam Vital signs and Labs for Last 24 Hours: Temp Pulse Resp BP Pulse Ox 97.6 F 80 15 115/80 97 08/22/18 04:00 08/22/18 06:36 08/22/18 04:00 08/22/18 04:00 08/22/18 06:36 Laboratory Results - last 24 hr 08/21/18 12:38: WBC 15.0 H, RBC 5.14, Hgb 13.4 L, Hct 43.9, MCV 85.4, MCH 26.0 L , MCHC 30.5 L, RDW 17.1, Plt Count 120 L, MPV 9.5, Neut % (Auto) 70.4, Lymph % (Auto) 18.6, [place] % (Auto) 5.1, Eos % (Auto) 5.1, Baso % (Auto) 0.7, Neut # (Auto) 10.6 H, Lymph # (Auto) 2.8, [place] # (Auto) 0.8, Eos # (Auto) 0.8 H, Baso # (Auto) 0.1, Total Counted 100, Neutrophils % (Manual) 75, Lymphocytes % (Manual) 18, Monocytes % (Manual) 6, Eosinophils % (Manual) 1, Platelet Estimate Slight decrease, Hypochromasia 1+ 08/21/18 12:38: Sodium 142, Potassium 4.6, Chloride 104, Carbon Dioxide 31, Anion Gap 11.6, BUN 12, Creatinine 1.20, Estimated Creat Clear 72, Estimated GFR 59, Est GFR ( Amer) 71, Glucose 94, Calcium 8.5, Total Bilirubin 0.8, AST 15, ALT 18, Alkaline Phosphatase 105, Troponin I < 0.02, Total Protein 6.7, Albumin 2.6 L, Globulin 4.1 H, Albumin/Globulin Ratio 0.6 L 08/21/18 12:38: Lactate 1.9 08/21/18 12:38: B-Natriuretic Peptide 176 H 08/21/18 15:05: Urine Color Yellow, Urine Appearance Clear, Urine pH 7.0, Ur Specific [place] 1.010, Urine Protein Negative, Urine Glucose (UA) Negative, Urine Ketones Negative, Urine Blood Negative, Urine Nitrate Negative, Urine Bilirubin Negative, Urine Urobilinogen 0.2, Ur Leukocyte Esterase Negative, Urine RBC None, Urine WBC Occasional, Ur Squamous Epith Cells None, Urine Bacteria Trace I & O for Last 24 hours: Intake & Output 08/19/18 08/20/18 08/21/18 08/22/18 11:59 11:59 11:59 11:59 Intake Total 1180 / 1180 Output Total 3980 / 3980 Balance -2800 / -2800 Weight 215 lb 223 lb 8 oz Microbiology Reports for the Last 24 Hours: Microbiology 08/21/18 12:30 Sputum - Expectorated Sputum Gram Stain - Final Narrative: He is awake and alert. He appears at baseline. Lungs have expiratory wheezes throughout with very little rhonchi this morning. Heart has a regular rate and rhythm. Assessment and Plan (1) Acute on chronic diastolic heart failure Current visit: Yes Status: Acute Category: Medical Code(s): I50.33 - Acute on chronic diastolic (congestive) heart failure (2) Acute exacerbation of chronic obstructive airways disease Current visit: No Status: Acute Category: Medical Code(s): J44.1 - Chronic obstructive pulmonary disease with (acute) exacerbation (3) Cardiac pacemaker in situ Current visit: No Status: Chronic Category: Medical Code(s): Z95.0 - Presence of cardiac pacemaker - Assessment and plan all Dx Assessment and Plan for all problems:: 1. Continue aggressive diuresis and patient will be given Lasix 40 mg IV 3 times today. Maintain Proctor catheter to closely monitor urine output. Weigh patient daily. Continue fluid restrictions. 2. Continue duo nebs and Solu-Medrol. Patient will be given a Mucomyst neb to see if that can aid with sputum clearance
[2018-08-22 07:28] LABS: Anion Gap 9.2 mEq/L (5-15); Calcium 8.2 mg/dL (8.5-10.1); Potassium 4.2 mmoL/L (3.5-5.1)
--- NOTE | 2018-08-22 07:32 | Pharmacy Consult Notes ---
[facility] Pharmacy VTE Monitoring - Patient Demographics Admission date: 08/21/18 Report Date: 08/22/18 Time: 07:31 Allergies/Adverse Reactions: Patient Allergies No Known Allergies Allergy (Verified 06/06/18 09:14) Height: 1.83 m Weight: 101.378 kg Patient Problems: Current Active Problems CHF exacerbation (Acute) Acute on chronic diastolic heart failure (Acute) - VTE Risk Labs: VTE Related Lab Results Hgb 13.4 g/dL (14.1-18.0) L 08/21/18 12:38 Hct 43.9 % (42.0-52.0) 08/21/18 12:38 Plt Count 120 K/mm3 (142-424) L 08/21/18 12:38 BUN 12 mg/dL (7-18) 08/21/18 12:38 Creatinine 1.20 mg/dL (0.70-1.30) 08/21/18 12:38 Estimated Creat Clear 72 mL/min (50-200) 08/21/18 12:38 Was VTE Risk Assessment Performed: Yes VTE Score: 10 VTE Risk Level: Moderate Risk - Prophylaxis VTE Prophylaxis Ordered?: Yes Types of VTE Prophylaxis: TEDS Knee High Location of Applied Device: Bilateral Lower Extremeties - VTE Diagnosis Confirmed Treatment or plan recommended: Continue Current Treatment
--- NOTE | 2018-08-23 07:14 | Progress Note ---
Internal Medicine - PN: Subj *Date: 08/23/18 *Time: 07:12 Interval history: Patient states he is feeling better today. He feels less swollen. He has been ambulating Exam Vital signs and Labs for Last 24 Hours: Temp Pulse Resp BP Pulse Ox 97.6 F 80 21 120/71 98 08/23/18 04:00 08/23/18 06:34 08/23/18 04:00 08/23/18 04:00 08/23/18 06:34 Laboratory Results - last 24 hr 08/22/18 06:39: Sodium 136, Potassium 4.2, Chloride 99, Carbon Dioxide 32, Anion Gap 9.2, BUN 19 H D, Creatinine 1.27, Estimated Creat Clear 71, Estimated GFR 55 L, Est GFR ( Amer) 67, Glucose 155 H D, Calcium 8.2 L I & O for Last 24 hours: Intake & Output 08/20/18 08/21/18 08/22/18 08/23/18 11:59 11:59 11:59 11:59 Intake Total 1420 / 1420 370 / 370 Output Total 3980 / 3980 3000 / 3000 Balance -2560 / -2560 -2630 / -2630 Weight 215 lb 223 lb 8 oz 221 lb 8.004 oz Microbiology Reports for the Last 24 Hours: Microbiology 08/21/18 12:30 Sputum - Expectorated Sputum Gram Stain - Final 08/21/18 12:30 Sputum - Expectorated Sputum Sputum Culture - Preliminary Narrative: Patient appears comfortable. Lungs continue to have expiratory wheezes but less rhonchi. Heart has a regular rate and rhythm. Abdomen is soft and nontender. Patient still has 1+ edema of the lower legs and feet Assessment and Plan (1) Acute on chronic diastolic heart failure Current visit: Yes Status: Acute Category: Medical Code(s): I50.33 - Acute on chronic diastolic (congestive) heart failure (2) Acute exacerbation of chronic obstructive airways disease Current visit: No Status: Acute Category: Medical Code(s): J44.1 - Chronic obstructive pulmonary disease with (acute) exacerbation (3) Cardiac pacemaker in situ Current visit: No Status: Chronic Category: Medical Code(s): Z95.0 - Presence of cardiac pacemaker - Assessment and plan all Dx Assessment and Plan for all problems:: Decrease Lasix to twice daily. Continue fluid restrictions. Reassess this afternoon for likely discharge
[2018-08-23 07:43] LABS: Anion Gap 7.8 mEq/L (5-15); Calcium 8.3 mg/dL (8.5-10.1); Potassium 4.8 mmoL/L (3.5-5.1)
--- NOTE | 2018-08-26 07:09 | Discharge Summary ---
General - General Admission date:: 08/21/18 Discharge date: 08/23/18 HPI HPI: 77 year old male presents for shortness of breath and generalized swelling. Reports symptoms started approx three weeks ago but became worse yesterday. Typically he is able to walk about 20 feet at home but has now only been able to go about ten and has to rest multiple times. Wears 3L NC at home as well. Positive for cough producing yellow sputum. Denies knowledge of any fevers, chills or cold like symptoms. He had a similar hospitalization about three months ago. Hospital Course Hospital Course: Patient was admitted and placed on Lasix 40 mg 3 times daily along with 1200 cc fluid restriction. Patient had excellent response to diuretics over the first 24 hours but this did not result in any improvement in symptoms of dyspnea. Patient was continued on Lasix and after an additional 24 hours patient felt like his breathing had improved and had returned to baseline, possibly even slightly better. Patient did express some frustration with the fluid restrictions which I repeatedly discussed with the patient was necessary to ensure a negative fluid balance. While patient claims he only drinks small amounts of fluids at home I do not believe he really accurately calculates his fluids. Once patient had returned to baseline he was discharged to home. No changes were made in his home medications and he will follow-up with me on August 26 at 1:30 Objective Vital signs: Temp Pulse Resp BP Pulse Ox 97.7 F 80 18 115/70 90 L 08/23/18 12:00 08/23/18 12:00 08/23/18 12:00 08/23/18 12:00 08/23/18 14:22 Results Labs on day of discharge: Preliminary micro results at discharge 08/21/18 12:38 Blood Culture - Preliminary Blood NO GROWTH AFTER 48 HOURS 08/21/18 12:38 Blood Culture - Preliminary Blood NO GROWTH AFTER 48 HOURS DS: Diagnosis - Discharge Diagnosis (1) Acute on chronic diastolic heart failure Status: Acute (2) Acute exacerbation of chronic obstructive airways disease Status: Acute (3) Cardiac pacemaker in situ Status: Chronic Discharge Plan - Patient Discharge Instructions ACTIVITY: Continue current activity DIET: continue same diet Patient Instructions: DI for Heart Failure, DI for Chronic Obstructive Pulmonary Disease - Follow up Plan Follow up with: Sharan Tariq MD [Primary Care Provider] - 08/26/18 1:30 pm Disposition: Home, Self-Fpc Medications: Home Medications Medication Instructions Recorded Confirmed Type Aspirin [Aspirin 81mg EC Tab] 81 mg PO DAILY 09/29/17 08/21/18 History furosemide 40 mg tablet 40 mg PO DAILY 01/15/18 08/21/18 History Tamsulosin HCl [Flomax 0.4mg 0.4 mg PO HS 05/05/18 08/21/18 History capsule] Hydrocodone/Acetaminophen 1 tab PO Q8H PRN 05/06/18 08/21/18 History [Hydrocodone-Acetamin 7.5-325] diphenhydrAMINE HCl [Antihistamine] 25 mg PO Q8HP PRN 05/06/18 08/21/18 History Fluticasone/Umeclidin/Vilanter 1 puff IH DAILY 05/07/18 08/21/18 History [Trelegy Ellipta 100-62.5-25] Ipratropium/Albuterol Sulfate 3 ml IH [id number] PRN 05/07/18 08/21/18 History [Iprat-Albut 0.5-3(2.5) mg/3 ml] Spironolactone 25 mg PO DAILY 06/26/18 08/21/18 History Azithromycin [Zithromax 250mg 1 tab PO MOWEFR 08/21/18 08/21/18 History tab] Potassium Chloride 20 meq PO DAILY 08/21/18 08/21/18 History predniSONE [Deltasone 10mg tablet] 10 mg PO DAILY 08/22/18 08/22/18 History Prescriptions/Medication Reconciliation: Continue furosemide 40 mg tablet 40 mg PO DAILY Aspirin [Aspirin 81mg EC Tab] 81 mg PO DAILY Hydrocodone/Acetaminophen [Hydrocodone-Acetamin 7.5-325] 1 tab PO Q8H PRN PRN Reason: pain Ipratropium/Albuterol Sulfate [Iprat-Albut 0.5-3(2.5) mg/3 ml] 3 ml IH [id number] PRN PRN Reason: Shortness Of Breath Fluticasone/Umeclidin/Vilanter [Trelegy Ellipta 100-62.5-25] 1 puff IH DAILY Spironolactone 25 mg PO DAILY Potassium Chloride 20 meq PO DAILY Azithromycin [Zithromax 250mg tab] 1 tab PO MOWEFR predniSONE [Deltasone 10mg tablet] 10 mg PO DAILY Tamsulosin HCl [Flomax 0.4mg capsule] 0.4 mg PO HS diphenhydrAMINE HCl [Antihistamine] 25 mg PO Q8HP PRN PRN Reason: ALLERGIES
== END 2018-08-23 15:46 | disposition home or self-care (01) ==
LOC: 2ND 11:51 → ER 11:51 → 2ND 17:00
PROVIDERS: ADMIT Family Medicine; ATTEND Family Medicine
CPT/HCPCS: 36415; 71010; 71045; 80048; 80053; 81001; 83605; 83735; 83880; 84484; 85007; 85025; 87040; 87070; 87077; 87186; 87205; 93005; 94640; 94760; 94761; 96374; 96375; 99284; G0378

== ENCOUNTER → 2018-08-29 15:15 | Outpatient (CLI) | payer MEDICARE, MEDICAID, SELFPAY ==
--- NOTE | 2018-08-29 15:28 | XR_ITS ---
XR chest 2V HISTORY: ITS.REASON: chest pain ORDERING PHYSICIAN: Blade Comer MD PATIENT AGE: 77 years COMPARISON: 08/21/2018 FINDINGS: There is mild cardiomegaly without failure. Bipolar pacemaker present from left subclavian approach. CHF has improved compared to the previous exam. Chronic pleural thickening is noted in the lower lobes bilaterally with some pleural calcification similar to exam of 06/26/2018. There are chronic changes in the lung bases. IMPRESSION: Improved CHF. Chronic pleural parenchymal changes in the lower lobes
[2018-08-29 16:41] LABS: Anion Gap 11.7 mEq/L (5-15); Blood Urea Nitrogen 16 mg/dL (7-18); Calcium 8.5 mg/dL (8.5-10.1); Carbon Dioxide 33 mmol/L (21.0-32.0); Chloride 96 mmol/L (98-107); Creatinine,Serum 1.22 mg/dL (0.70-1.30); Estimated Glomerular Filt Rate 58 ml/min (>60); GFR (African American) 70 ML/MIN (>60); Glucose 94 mg/dL (74-106); Potassium 4.7 mmoL/L (3.5-5.1); Sodium 136 mmol/L (136-145)
== END ==
PROVIDERS: Visit Provider Internal Medicine Cardiovascular Disease
DX: I50.33 Acute on chronic diastolic (congestive) heart failure (principal); I27.20 Pulmonary hypertension, unspecified; J44.9 Chronic obstructive pulmonary disease, unspecified; I25.10 Atherosclerotic heart disease of native coronary artery without angina pectoris; Z87.891 Personal history of nicotine dependence
CPT/HCPCS: 36415; 71046; 80048; 83880

== ENCOUNTER 2018-09-04 12:24 | Observation (INO) ==
[2018-09-04 12:39] LABS: ABG Base Excess 2.1 mmol/L (-2.4-2.3); ABG HCO3 27.8 mmhg (22.0-26.0); ABG Oxygen Saturation 96 % (90-100); ABG PH 7.34 mmol/L (7.35-7.45); ABG PO2 85.5 mmhg (80-100); ABG TCO2 29.4 mmhg (23-27)
[2018-09-04 12:40] LABS: Anion Gap 9.5 mEq/L (5-15); Calcium 8.3 mg/dL (8.5-10.1); Potassium 4.5 mmoL/L (3.5-5.1)
[2018-09-04 12:41] LABS: Oxygen 4LPM %
[2018-09-04 12:42] LABS: ABG PCO2 52.4 mmhg (35.0-45.0)
[2018-09-04 12:51] LABS: Basophils # 0.1 K/mm3 (0-0.2); Basophils % 0.6 % (0.1-2.0); Eosinophils # 0.6 K/mm3 (0.0-0.4); Hematocrit 47.8 % (42.0-52.0); Hemoglobin 14.6 g/dL (14.1-18.0); Lymphocytes # 3.5 K/mm3 (0.7-4.5); Lymphocytes % 17.9 % (10-50); Mean Corpuscular HGB Conc 30.4 g/dL (31.8-35.4); Mean Corpuscular Hemoglobin 25.8 pg (27.0-31.2); Mean Corpuscular Volume 84.8 fl (80-94); Mean Platelet Volume 8.8 fl (7.4-10.4); Monocytes # 0.8 K/mm3 (0.1-1.0); Neutrophils # 14.7 K/mm3 (1.8-7.8); Neutrophils % 74.5 % (37.0-80.0); Platelet Count 193 K/mm3 (142-424); Red Blood Count 5.64 M/mm3 (4.60-6.20); Red Cell Distribution Width 16.9 % (11.5-17.5); White Blood Count 19.7 K/mm3 (4.8-10.8)
[2018-09-04 13:41] LABS: Eosinophils % 1 % (0-3); Hypochromasia 1+; Lymphocytes % 11 % (10-50); Monocytes % 1 % (2-9); Neutrophils % 87 % (42-76); Total Cells Counted 100
--- NOTE | 2018-09-04 14:20 | Pharmacy Consult Notes ---
[facility] Pharmacy VTE Monitoring - Patient Demographics Admission date: 09/04/18 Report Date: 09/04/18 Time: 14:20 Allergies/Adverse Reactions: Patient Allergies No Known Allergies Allergy (Verified 08/29/18 14:25) Height: 1.83 m Weight: 99.79 kg - VTE Risk Labs: VTE Related Lab Results Hgb 14.6 g/dL (14.1-18.0) 09/04/18 12:30 Hct 47.8 % (42.0-52.0) 09/04/18 12:30 Plt Count 193 K/mm3 (142-424) 09/04/18 12:30 BUN 17 mg/dL (7-18) 09/04/18 12:30 Creatinine 1.20 mg/dL (0.70-1.30) 09/04/18 12:30 Estimated Creat Clear 74 mL/min (50-200) 09/04/18 12:30 Was VTE Risk Assessment Performed: Yes VTE Score: 6 VTE Risk Level: Moderate Risk Clinical Trial Participant: No - Prophylaxis VTE Prophylaxis Ordered?: Yes Types of VTE Prophylaxis: TEDS Knee High
--- NOTE | 2018-09-04 15:59 | History & Physical Report ---
*Admission Date: 09/04/18 *Chief complaint: chest pain, SOB *History of present illness: 77 year old male presents to ER via ambulance complaining of sternal pain, shortness of breath and cough. Symptoms are chronic in nature but has been worse the last 2-3 days. Sputum production is yellowish in color. Denies fever, chills, or cold like symptoms. Patient was here for a similar admission about three weeks ago, he denies altering from fluid restriction and discharge instructions with last visit. Wears 2-3 L NC at home. 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 [facility] History Medical History: Reports:: Arrhythmia, Asthma, Atrial Fibrillation, Congestive Heart Failure, Chronic Obstructive Pulmonary Disease (COPD), Home Oxygen, Hypertension, Internal Pacemaker, Lung Disease, Kidney Stones, Myocardial Infarction Denies:: Cancer, Diabetes Mellitus Type 1, Diabetes Mellitus Type 2, MRSA *Have you ever received a pneumonia vaccine?: Yes *Have you received a flu vaccine this season?: No (refuses) Other Medical History: Reports: Arthritis Laterality Cases: Right: Arthroscopy Knee, Bilateral: Other Other Surgeries: Yes: Hernia Repair, Pacemaker, Other (shoulder surgery) Amputation: No Fractures: No - *Social History Smoking Status: Former smoker Tobacco Type: cigarettes # Packs/Day (cigarettes): 1 #Yrs smoked (if former smoker): 40 Alcohol Intake: never Alcohol Intake Frequency:: other Substance Use Type: denies use *Occupational Status:: retired, disabled Housing: house Household Members: spouse *Travel in the last 8 weeks: None - Psychiatric History Expresses thoughts of harming self/others: None Suicide Plan Description: No Plan Family Hx:: Asthma, Cancer, Coronary Artery Disease, Hyperlipidemia, Hypertension Review of Systems - Constitutional Reports lack of energy, Denies body ache(s), Denies chills, Denies fever(s), Denies weight gain - *Cardiovascular Reports shortness of breath with activity, Reports leg swelling, Denies generalized swelling, Denies lightheadedness, Denies rapid, pounding, or irregular heartbeat, Denies radiating jaw, neck or arm pain, Denies fast heart rate Comments: sternal pain - *Respiratory Reports chest congestion, Reports pain with cough, Denies excessive phlegm production, Denies coughing up blood Comments: yellow sputum production - *Gastrointestinal Denies abdominal pain, Denies nausea, Denies vomiting - *Genitourinary Denies difficulty urinating Meds Home Medications Medication Instructions Recorded Confirmed Type Aspirin [Aspirin 81mg EC Tab] 81 mg PO DAILY 09/29/17 09/04/18 History Tamsulosin HCl [Flomax 0.4mg 0.4 mg PO HS 05/05/18 09/04/18 History capsule] Hydrocodone/Acetaminophen 1 tab PO TIDP PRN 05/06/18 09/04/18 History [Hydrocodone-Acetamin 7.5-325] diphenhydrAMINE HCl [Antihistamine] 50 mg PO Q8HP PRN 05/06/18 09/04/18 History Fluticasone/Umeclidin/Vilanter 1 puff IH DAILY 05/07/18 09/04/18 History [Trelegy Ellipta 100-62.5-25] Ipratropium/Albuterol Sulfate 3 ml IH [id number] PRN 05/07/18 09/04/18 History [Iprat-Albut 0.5-3(2.5) mg/3 ml] Spironolactone 25 mg PO DAILY 06/26/18 09/04/18 History Azithromycin [Zithromax 250mg 1 tab PO MOWEFR 08/21/18 09/04/18 History tab] Potassium Chloride 20 meq PO DAILY 08/21/18 09/04/18 History predniSONE [Deltasone 10mg tablet] 10 mg PO DAILY 08/22/18 09/04/18 History furosemide 40 mg tablet 80 mg PO DAILY tab 08/29/18 09/04/18 History Allergies Allergy/AdvReac Type Severity Reaction Status Date / Time No Known Allergies Allergy Verified 08/29/18 14:25 Exam Vital signs and Labs for Last 24 Hours: Temp Pulse Resp BP Pulse Ox 97.6 F 80 28 H 118/69 96 09/04/18 13:38 09/04/18 13:38 09/04/18 13:38 09/04/18 13:38 09/04/18 13:45 Laboratory Results - last 24 hr 09/04/18 12:30: WBC 19.7 H, RBC 5.64, Hgb 14.6, Hct 47.8, MCV 84.8, MCH 25.8 L, MCHC 30.4 L, RDW 16.9, Plt Count 193, MPV 8.8, Neut % (Auto) 74.5, Lymph % (Auto) 17.9, Titus % (Auto) 4.0, Eos % (Auto) 3.0, Baso % (Auto) 0.6, Neut # (Auto) 14.7 H, Lymph # (Auto) 3.5, Titus # (Auto) 0.8, Eos # (Auto) 0.6 H, Baso # (Auto) 0.1, Total Counted 100, Neutrophils % (Manual) 87 H, Lymphocytes % ( Manual) 11, Monocytes % (Manual) 1 L, Eosinophils % (Manual) 1, Platelet Estimate Normal, Hypochromasia 1+ 09/04/18 12:30: Sodium 136, Potassium 4.5, Chloride 100, Carbon Dioxide 31, Anion Gap 9.5, BUN 17, Creatinine 1.20, Estimated Creat Clear 74, Estimated GFR 59, Est GFR ( Amer) 71, Glucose 139 H, Calcium 8.3 L 09/04/18 12:37: Specimen Source Line, O2 % 4lpm, ABG pH 7.34 L, ABG pCO2 52.4 H, ABG pO2 85.5, ABG HCO3 27.8 H, ABG Total CO2 29.4 H, ABG O2 Saturation 96, ABG Base Excess 2.1 I & O for Last 24 hours: Intake & Output 09/01/18 09/02/18 09/03/18 09/04/18 23:59 23:59 23:59 23:59 Weight 220 lb - Constitutional mild distress - *Routine Respiratory Exam Present: accessory muscle use, rhonchi, diminished air movement - *Routine Cardiovascular Exam Present: RRR. Absent: irregular rhythm - *Routine Abdominal Exam Present: soft, normoactive bowel sounds - *Routine Extremities Exam Comments: tr-1+ pedal edema - *Routine Skin Exam Present: intact, dry, pallor. Absent: cyanosis - *Routine Neurological Exam Present: alert, oriented X3 - Routine Psychiatric Exam Present: normal affect Assessment and Plan - Assessment and plan all Dx Assessment and Plan for all problems:: Will admit to 2nd floor med surg unit for additional testing, treatment and observation.
[2018-09-04 16:43] LABS: Basophils # 0.1 K/mm3 (0-0.2); Basophils % 0.7 % (0.1-2.0); Eosinophils # 0.4 K/mm3 (0.0-0.4); Eosinophils % 2.4 % (0.1-12.0); Hematocrit 49.9 % (42.0-52.0); Lymphocytes # 2.7 K/mm3 (0.7-4.5); Lymphocytes % 17.4 % (10-50); Mean Corpuscular Hemoglobin 25.8 pg (27.0-31.2); Mean Corpuscular Volume 86.1 fl (80-94); Mean Platelet Volume 9.2 fl (7.4-10.4); Monocytes # 0.7 K/mm3 (0.1-1.0); Monocytes % 4.2 % (1.7-9.3); Neutrophils # 11.5 K/mm3 (1.8-7.8); Neutrophils % 75.3 % (37.0-80.0); Platelet Count 157 K/mm3 (142-424); Red Cell Distribution Width 16.9 % (11.5-17.5); White Blood Count 15.3 K/mm3 (4.8-10.8)
[2018-09-04 17:19] LABS: Albumin Level 2.6 gm/dL (3.4-5.0); Albumin/Globulin Ratio 0.7 (1.1-1.8); Anion Gap 11.4 mEq/L (5-15); Bilirubin,Total 0.5 mg/dL (0.2-1.0); Calcium 8.5 mg/dL (8.5-10.1); Globulin 3.9 gm/dl (1.3-3.2); Potassium 4.4 mmoL/L (3.5-5.1); Total Protein,Serum 6.5 gm/dL (6.4-8.2)
[2018-09-05 06:43] LABS: Basophils % 0.2 % (0.1-2.0); Eosinophils % 0.1 % (0.1-12.0); Hematocrit 49.4 % (42.0-52.0); Lymphocytes # 1.6 K/mm3 (0.7-4.5); Lymphocytes % 9.5 % (10-50); Mean Corpuscular HGB Conc 30.3 g/dL (31.8-35.4); Mean Corpuscular Hemoglobin 25.8 pg (27.0-31.2); Mean Corpuscular Volume 85.3 fl (80-94); Mean Platelet Volume 9.2 fl (7.4-10.4); Monocytes # 0.6 K/mm3 (0.1-1.0); Monocytes % 3.5 % (1.7-9.3); Neutrophils # 14.4 K/mm3 (1.8-7.8); Neutrophils % 86.7 % (37.0-80.0); Platelet Count 170 K/mm3 (142-424); Red Cell Distribution Width 16.7 % (11.5-17.5); White Blood Count 16.6 K/mm3 (4.8-10.8)
[2018-09-05 06:46] LABS: Anion Gap 10.7 mEq/L (5-15); Calcium 8.2 mg/dL (8.5-10.1); Potassium 5.7 mmoL/L (3.5-5.1)
--- NOTE | 2018-09-05 07:05 | Discharge Summary ---
General - General Admission date:: 09/04/18 Discharge date: 09/05/18 HPI HPI: 77 year old male presents to ER via ambulance complaining of sternal pain, shortness of breath and cough. Symptoms are chronic in nature but has been worse the last 2-3 days. Sputum production is yellowish in color. Denies fever, chills, or cold like symptoms. Patient was here for a similar admission about three weeks ago, he denies altering from fluid restriction and discharge instructions with last visit. Wears 2-3 L NC at home. 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 Patient had no coronary thrombosis and did not require any intervention. He was admitted post procedurally for observation Hospital Course Hospital Course: Patient was admitted for observation. He was started on steroids, duo nebs. Chest x-ray showed findings of CHF. Patient was given intravenous Lasix on the morning of September 05. From a respiratory standpoint he was at baseline. He was discharged and will follow-up in the office as scheduled. Objective Vital signs: Temp Pulse Resp BP Pulse Ox 97.9 F 80 20 124/81 97 09/05/18 04:00 09/05/18 04:00 09/05/18 04:00 09/05/18 04:00 09/05/18 04:00 Narrative: Patient is awake and alert. He is oriented to person place and time. HEENT exam is significant for round face with moist oropharynx. Normal external ears. Neck is without lymphadenopathy. Lungs have diffuse rhonchi heard anteriorly and posteriorly with expiratory wheezes which is generally his baseline exam. Heart has a regular rate and rhythm. Abdomen is soft and obese. Extremities are warm to the touch with edema. Results Labs on day of discharge: Labs from last 24 hours 09/05/18 09/05/18 09/05/18 05:55 05:55 01:07 WBC 16.6 H RBC 5.80 Hgb 15.0 Hct 49.4 MCV 85.3 MCH 25.8 L MCHC 30.3 L RDW 16.7 Plt Count 170 MPV 9.2 Neut % (Auto) 86.7 H Lymph % (Auto) 9.5 L Moca % (Auto) 3.5 Eos % (Auto) 0.1 Baso % (Auto) 0.2 Neut # (Auto) 14.4 H Lymph # (Auto) 1.6 Moca # (Auto) 0.6 Eos # (Auto) 0.0 Baso # (Auto) 0.0 Total Counted Neutrophils % (Manual) Lymphocytes % (Manual) Monocytes % (Manual) Eosinophils % (Manual) Platelet Estimate Hypochromasia Specimen Source O2 % ABG pH ABG pCO2 ABG pO2 ABG HCO3 ABG Total CO2 ABG O2 Saturation ABG Base Excess Sodium 131 L Potassium 5.7 H D Chloride 98 Carbon Dioxide 28 Anion Gap 10.7 BUN 20 H Creatinine 1.22 Estimated Creat Clear 72 Estimated GFR 58 L Est GFR ( Amer) 70 Glucose 149 H D POC Glucose 157 H Calcium 8.2 L Total Bilirubin AST ALT Alkaline Phosphatase Total Protein Albumin Globulin Albumin/Globulin Ratio 09/04/18 09/04/18 09/04/18 16:33 16:33 12:37 WBC 15.3 H RBC 5.80 Hgb 15.0 Hct 49.9 MCV 86.1 MCH 25.8 L MCHC 30.0 L RDW 16.9 Plt Count 157 MPV 9.2 Neut % (Auto) 75.3 Lymph % (Auto) 17.4 Moca % (Auto) 4.2 Eos % (Auto) 2.4 Baso % (Auto) 0.7 Neut # (Auto) 11.5 H Lymph # (Auto) 2.7 Moca # (Auto) 0.7 Eos # (Auto) 0.4 Baso # (Auto) 0.1 Total Counted Neutrophils % (Manual) Lymphocytes % (Manual) Monocytes % (Manual) Eosinophils % (Manual) Platelet Estimate Hypochromasia Specimen Source Line O2 % 4lpm ABG pH 7.34 L ABG pCO2 52.4 H ABG pO2 85.5 ABG HCO3 27.8 H ABG Total CO2 29.4 H ABG O2 Saturation 96 ABG Base Excess 2.1 Sodium 137 Potassium 4.4 Chloride 99 Carbon Dioxide 31 Anion Gap 11.4 BUN 16 Creatinine 1.25 Estimated Creat Clear 71 Estimated GFR 56 L Est GFR ( Amer) 68 Glucose 88 D POC Glucose Calcium 8.5 Total Bilirubin 0.5 AST 14 L ALT 15 Alkaline Phosphatase 99 Total Protein 6.5 Albumin 2.6 L Globulin 3.9 H Albumin/Globulin Ratio 0.7 L 09/04/18 09/04/18 12:30 12:30 WBC 19.7 H RBC 5.64 Hgb 14.6 Hct 47.8 MCV 84.8 MCH 25.8 L MCHC 30.4 L RDW 16.9 Plt Count 193 MPV 8.8 Neut % (Auto) 74.5 Lymph % (Auto) 17.9 Moca % (Auto) 4.0 Eos % (Auto) 3.0 Baso % (Auto) 0.6 Neut # (Auto) 14.7 H Lymph # (Auto) 3.5 Moca # (Auto) 0.8 Eos # (Auto) 0.6 H Baso # (Auto) 0.1 Total Counted 100 Neutrophils % (Manual) 87 H Lymphocytes % (Manual) 11 Monocytes % (Manual) 1 L Eosinophils % (Manual) 1 Platelet Estimate Normal Hypochromasia 1+ Specimen Source O2 % ABG pH ABG pCO2 ABG pO2 ABG HCO3 ABG Total CO2 ABG O2 Saturation ABG Base Excess Sodium 136 Potassium 4.5 Chloride 100 Carbon Dioxide 31 Anion Gap 9.5 BUN 17 Creatinine 1.20 Estimated Creat Clear 74 Estimated GFR 59 Est GFR ( Amer) 71 Glucose 139 H POC Glucose Calcium 8.3 L Total Bilirubin AST ALT Alkaline Phosphatase Total Protein Albumin Globulin Albumin/Globulin Ratio DS: Diagnosis - Discharge Diagnosis (1) Non-cardiac chest pain Status: Acute (2) Chronic respiratory failure Status: Acute Discharge Plan - Patient Discharge Instructions ACTIVITY: Continue current activity DIET: continue same diet Patient Instructions: Dehydration, Chronic Obstructive Pulmonary Disease - Follow up Plan Disposition: Home, Self-Group Home Medications: Home Medications Medication Instructions Recorded Confirmed Type Aspirin [Aspirin 81mg EC Tab] 81 mg PO DAILY 09/29/17 09/04/18 History Tamsulosin HCl [Flomax 0.4mg 0.4 mg PO HS 05/05/18 09/04/18 History capsule] Hydrocodone/Acetaminophen 1 tab PO TIDP PRN 05/06/18 09/04/18 History [Hydrocodone-Acetamin 7.5-325] diphenhydrAMINE HCl [Antihistamine] 50 mg PO Q8HP PRN 05/06/18 09/04/18 History Fluticasone/Umeclidin/Vilanter 1 puff IH DAILY 05/07/18 09/04/18 History [Trelegy Ellipta 100-62.5-25] Ipratropium/Albuterol Sulfate 3 ml IH [id number] PRN 05/07/18 09/04/18 History [Iprat-Albut 0.5-3(2.5) mg/3 ml] Spironolactone 25 mg PO DAILY 06/26/18 09/04/18 History Azithromycin [Zithromax 250mg 250 mg PO MOWEFR 08/21/18 09/04/18 History tab] Potassium Chloride 20 meq PO DAILY 08/21/18 09/04/18 History predniSONE [Deltasone 10mg tablet] 10 mg PO DAILY 08/22/18 09/04/18 History furosemide 40 mg tablet 80 mg PO DAILY tab 08/29/18 09/04/18 History Omeprazole 20 mg PO DAILY #30 tab 09/05/18 Rx Prescriptions/Medication Reconciliation: New Omeprazole 20 mg PO DAILY #30 tab. Continue furosemide 40 mg tablet 80 mg PO DAILY tab Aspirin [Aspirin 81mg EC Tab] 81 mg PO DAILY Hydrocodone/Acetaminophen [Hydrocodone-Acetamin 7.5-325] 1 tab PO TIDP PRN PRN Reason: pain Ipratropium/Albuterol Sulfate [Iprat-Albut 0.5-3(2.5) mg/3 ml] 3 ml IH [id number] PRN PRN Reason: Shortness Of Breath Fluticasone/Umeclidin/Vilanter [Trelegy Ellipta 100-62.5-25] 1 puff IH DAILY Spironolactone 25 mg PO DAILY Potassium Chloride 20 meq PO DAILY Azithromycin [Zithromax 250mg tab] 250 mg PO MOWE predniSONE [Deltasone 10mg tablet] 10 mg PO DAILY Tamsulosin HCl [Flomax 0.4mg capsule] 0.4 mg PO HS diphenhydrAMINE HCl [Antihistamine] 50 mg PO Q8HP PRN PRN Reason: ALLERGIES
[2018-09-05 08:33] LABS: Lymphocytes % 8 % (10-50); Monocytes % 3 % (2-9); Neutrophils % 89 % (42-76); Total Cells Counted 100
[2018-09-05 08:35] LABS: Hypochromasia 1+
== END 2018-09-05 11:10 | disposition home or self-care (01) ==
LOC: 2ND 12:24 → CATHLAB 12:24
PROVIDERS: ADMIT Emergency Medicine; ATTEND Family Medicine
CPT/HCPCS: 36415; 71010; 71045; 80048; 80053; 82803; 82962; 85007; 85025; 87070; 87077; 87186; 87205; 93458; 94640; 99152; C1725; C1769; G0378; J1644; Q9967

== ENCOUNTER 2018-09-19 13:38 | Inpatient (IN) ==
--- NOTE | 2018-09-19 14:56 | Pharmacy Consult Notes ---
[facility] Pharmacy VTE Monitoring - Patient Demographics Admission date: 09/19/18 Report Date: 09/19/18 Time: 14:56 Allergies/Adverse Reactions: Patient Allergies No Known Allergies Allergy (Verified 09/11/18 13:24) Height: 1.83 m Weight: 102.994 kg - VTE Risk VTE Score: 7 VTE Risk Level: Moderate Risk - Prophylaxis VTE Prophylaxis Ordered?: Yes Types of VTE Prophylaxis: TEDS Knee High Location of Applied Device: Bilateral Lower Extremeties - VTE Diagnosis Confirmed Treatment or plan recommended: Continue Current Treatment
--- NOTE | 2018-09-19 15:24 | History & Physical Report ---
*Admission Date: 09/19/18 *Chief complaint: SHORTNESS OF BREATH *History of present illness: 77 old male with COPD presented to the office for OP folllow up of COPD exacerbation. For the last week patient had been on antibiotics, steroids. In office valerie was more dyspneic than he had been the previous week and was now using supplemental oxygen. Despite wearing oxygen patients oxygen sats were in the mid to high 80's. Decision was made to admit for failed op treatment. [facility] History I have reviewed the patient's past medical history: Yes Medical History: Reports:: Arrhythmia, Asthma, Atrial Fibrillation, Congestive Heart Failure, Chronic Obstructive Pulmonary Disease (COPD), Home Oxygen, Hypertension, Internal Pacemaker, Lung Disease, Kidney Stones, Myocardial Infarction Denies:: Cancer, Diabetes Mellitus Type 1, Diabetes Mellitus Type 2, MRSA *Have you ever received a pneumonia vaccine?: Yes *Have you received a flu vaccine this season?: No Other Medical History: Reports: Arthritis Laterality Cases: Right: Arthroscopy Knee, Bilateral: Other Other Surgeries: Yes: Hernia Repair (x2), Pacemaker, Other (shoulder surgery) Amputation: No Fractures: No - *Social History Educational Level: Attended Grade School Smoking Status: Former smoker Tobacco Type: cigarettes # Packs/Day (cigarettes): 1 #Yrs smoked (if former smoker): 50 Smoking End Date: 3 years ago Alcohol Intake: never Alcohol Intake Frequency:: other Substance Use Type: denies use *Occupational Status:: retired, disabled Housing: house Household Members: spouse *Travel in the last 8 weeks: None - Psychiatric History Expresses thoughts of harming self/others: None Suicide Plan Description: No Plan Family Hx:: Asthma, Cancer, Coronary Artery Disease, Hyperlipidemia, Hypertension Review of Systems - Review of Systems Review of systems:: pertinent systems reviewed and negative unless documented below Meds Home Medications Medication Instructions Recorded Confirmed Type Aspirin [Aspirin 81mg EC Tab] 81 mg PO DAILY 09/29/17 09/11/18 History Tamsulosin HCl [Flomax 0.4mg 0.4 mg PO HS 05/05/18 09/11/18 History capsule] diphenhydrAMINE HCl [Antihistamine] 50 mg PO Q8HP PRN 05/06/18 09/11/18 History Fluticasone/Umeclidin/Vilanter 1 puff IH DAILY 05/07/18 09/11/18 History [Trelegy Ellipta 100-62.5-25] Ipratropium/Albuterol Sulfate 3 ml IH [id number] PRN 05/07/18 09/11/18 History [Iprat-Albut 0.5-3(2.5) mg/3 ml] Spironolactone 25 mg PO DAILY 06/26/18 09/11/18 History Potassium Chloride 20 meq PO DAILY 08/21/18 09/11/18 History predniSONE [Deltasone 10mg tablet] 10 mg PO DAILY 08/22/18 09/11/18 History furosemide 40 mg tablet 80 mg PO DAILY tab 08/29/18 09/11/18 History Omeprazole 20 mg PO DAILY #30 tab.tracee. 09/05/18 09/11/18 Rx Allergies Allergy/AdvReac Type Severity Reaction Status Date / Time No Known Allergies Allergy Verified 09/11/18 13:24 Exam Vital signs and Labs for Last 24 Hours: Temp Pulse Resp BP Pulse Ox 97.8 F 80 22 137/75 91 L 09/19/18 14:00 09/19/18 14:00 09/19/18 14:00 09/19/18 14:00 09/19/18 14:00 I & O for Last 24 hours: Intake & Output 09/17/18 09/18/18 09/19/18 09/20/18 11:59 11:59 11:59 11:59 Weight 227 lb 1 oz - Constitutional moderate distress - *Routine HEENT Exam Head: Present: normocephalic Eye: Present: PERRL ENT: Present: mucous membranes moist - *Routine Neck Exam Absent: JVD - *Routine Respiratory Exam Present: accessory muscle use, decreased breath sounds, prolonged expiratory phase, respiratory distress, rhonchi, wheezes, crackles, diminished air movement - *Routine Cardiovascular Exam Present: Normal S1, Normal S2 - *Routine Abdominal Exam Present: soft, normoactive bowel sounds - *Routine Extremities Exam Present: edema - *Routine Neurological Exam Present: oriented X3, CN II-XII intact, motor deficit. Absent: sensory deficit Assessment and Plan (1) Acute and chronic respiratory failure Current visit: No Status: Acute Category: Medical Code(s): J96.20 - Acute and chronic respiratory failure, unspecified whether with hypoxia or hypercapnia (2) Acute exacerbation of chronic obstructive airways disease Current visit: No Status: Acute Category: Medical Code(s): J44.1 - Chronic obstructive pulmonary disease with (acute) exacerbation (3) Non-cardiac chest pain Current visit: No Status: Acute Category: Medical Code(s): R07.89 - Other chest pain (4) Chronic diastolic CHF (congestive heart failure), NYHA class 3 Current visit: No Status: Chronic Category: Medical Code(s): I50.32 - Chronic diastolic (congestive) heart failure - Assessment and plan all Dx Assessment and Plan for all problems:: 1. admit for IV steroids, antibiotics, nebs 2. fluid restrictions for chronic chf with IV lasix and daily weights 3. Home meds
[2018-09-19 15:37] LABS: Basophils # 0.1 K/mm3 (0-0.2); Basophils % 0.7 % (0.1-2.0); Eosinophils # 0.6 K/mm3 (0.0-0.4); Eosinophils % 3.2 % (0.1-12.0); Hematocrit 46.1 % (42.0-52.0); Hemoglobin 13.9 g/dL (14.1-18.0); Lymphocytes # 2.6 K/mm3 (0.7-4.5); Lymphocytes % 13.8 % (10-50); Mean Corpuscular HGB Conc 30.2 g/dL (31.8-35.4); Mean Corpuscular Hemoglobin 25.9 pg (27.0-31.2); Mean Corpuscular Volume 85.8 fl (80-94); Mean Platelet Volume 8.3 fl (7.4-10.4); Monocytes # 0.7 K/mm3 (0.1-1.0); Monocytes % 3.9 % (1.7-9.3); Neutrophils # 14.8 K/mm3 (1.8-7.8); Neutrophils % 78.4 % (37.0-80.0); Platelet Count 171 K/mm3 (142-424); Red Blood Count 5.38 M/mm3 (4.60-6.20); White Blood Count 18.8 K/mm3 (4.8-10.8)
[2018-09-19 15:42] LABS: Anion Gap 11.8 mEq/L (5-15); Calcium 8.1 mg/dL (8.5-10.1); Potassium 4.8 mmoL/L (3.5-5.1)
[2018-09-19 17:39] LABS: Eosinophils % 3 % (0-3); Lymphocytes % 17 % (10-50); Monocytes % 4 % (2-9); Neutrophils % 76 % (42-76); Total Cells Counted 100
[2018-09-19 17:40] LABS: Hypochromasia 2+
[2018-09-20 06:27] LABS: Basophils % 0.2 % (0.1-2.0); Eosinophils # 0.1 K/mm3 (0.0-0.4); Eosinophils % 0.6 % (0.1-12.0); Hematocrit 46.4 % (42.0-52.0); Hemoglobin 14.3 g/dL (14.1-18.0); Lymphocytes # 0.9 K/mm3 (0.7-4.5); Lymphocytes % 6.3 % (10-50); Mean Corpuscular HGB Conc 30.7 g/dL (31.8-35.4); Mean Corpuscular Hemoglobin 26.3 pg (27.0-31.2); Mean Corpuscular Volume 85.7 fl (80-94); Mean Platelet Volume 9.5 fl (7.4-10.4); Monocytes # 0.6 K/mm3 (0.1-1.0); Monocytes % 3.7 % (1.7-9.3); Neutrophils # 13.4 K/mm3 (1.8-7.8); Neutrophils % 89.2 % (37.0-80.0); Platelet Count 137 K/mm3 (142-424); Red Blood Count 5.41 M/mm3 (4.60-6.20); Red Cell Distribution Width 17.1 % (11.5-17.5)
[2018-09-20 06:35] LABS: Anion Gap 13.4 mEq/L (5-15); Calcium 8.1 mg/dL (8.5-10.1); Potassium 4.4 mmoL/L (3.5-5.1)
--- NOTE | 2018-09-20 07:22 | Progress Note ---
Internal Medicine - PN: Subj *Date: 09/20/18 *Time: 07:19 Interval history: Patient states he does not feel much better. He continues to complain of shortness of breath. He does not voice any complaint of chest pain to me this morning. Exam Vital signs and Labs for Last 24 Hours: Temp Pulse Resp BP Pulse Ox 97.8 F 80 20 108/48 L 98 09/20/18 04:00 09/20/18 06:33 09/20/18 04:00 09/20/18 04:00 09/20/18 06:33 Laboratory Results - last 24 hr 09/19/18 15:30: WBC 18.8 H, RBC 5.38, Hgb 13.9 L, Hct 46.1, MCV 85.8, MCH 25.9 L , MCHC 30.2 L, RDW 17.0, Plt Count 171, MPV 8.3, Neut % (Auto) 78.4, Lymph % (Auto) 13.8, Riley % (Auto) 3.9, Eos % (Auto) 3.2, Baso % (Auto) 0.7, Neut # (Auto) 14.8 H, Lymph # (Auto) 2.6, Riley # (Auto) 0.7, Eos # (Auto) 0.6 H, Baso # (Auto) 0.1, Total Counted 100, Neutrophils % (Manual) 76, Lymphocytes % (Manual) 17, Monocytes % (Manual) 4, Eosinophils % (Manual) 3, Platelet Estimate Normal, Hypochromasia 2+ 09/19/18 15:30: Sodium 140, Potassium 4.8, Chloride 103, Carbon Dioxide 30, Anion Gap 11.8, BUN 14, Creatinine 1.39 H, Estimated Creat Clear 66, Estimated GFR 50 L, Est GFR ( Amer) 60, Glucose 84, Calcium 8.1 L 09/20/18 06:17: WBC 15.0 H, RBC 5.41, Hgb 14.3, Hct 46.4, MCV 85.7, MCH 26.3 L, MCHC 30.7 L, RDW 17.1, Plt Count 137 L, MPV 9.5, Neut % (Auto) 89.2 H, Lymph % (Auto) 6.3 L, Riley % (Auto) 3.7, Eos % (Auto) 0.6, Baso % (Auto) 0.2, Neut # (Auto) 13.4 H, Lymph # (Auto) 0.9, Riley # (Auto) 0.6, Eos # (Auto) 0.1, Baso # (Auto) 0.0 09/20/18 06:17: Sodium 135 L, Potassium 4.4, Chloride 100, Carbon Dioxide 26, Anion Gap 13.4, BUN 20 H D, Creatinine 1.50 H, Estimated Creat Clear 60, Estimated GFR 46 L, Est GFR ( Amer) 55 L, Glucose 201 H D, Calcium 8.1 L I & O for Last 24 hours: Intake & Output 09/17/18 09/18/18 09/19/18 09/20/18 11:59 11:59 11:59 11:59 Intake Total 880 / 880 Output Total 2024 / 2024 Balance -1145 / -1145 Weight 221 lb 7 oz Microbiology Reports for the Last 24 Hours: Microbiology 09/19/18 22:09 Sputum - Expectorated Sputum Gram Stain - Final Narrative: Patient is awake and alert and appears comfortable although his lungs continue to have diffuse expiratory wheezes and rhonchi. Heart regular and without murmur Assessment and Plan (1) Acute and chronic respiratory failure Current visit: No Status: Acute Category: Medical Code(s): J96.20 - Acute and chronic respiratory failure, unspecified whether with hypoxia or hypercapnia (2) Acute exacerbation of chronic obstructive airways disease Current visit: No Status: Acute Category: Medical Code(s): J44.1 - Chronic obstructive pulmonary disease with (acute) exacerbation (3) Non-cardiac chest pain Current visit: No Status: Acute Category: Medical Code(s): R07.89 - Other chest pain (4) Chronic diastolic CHF (congestive heart failure), NYHA class 3 Current visit: No Status: Chronic Category: Medical Code(s): I50.32 - Chronic diastolic (congestive) heart failure - Assessment and plan all Dx Assessment and Plan for all problems:: Add mucomyst to aid with sputum clearance
[2018-09-20 07:31] LABS: Hypochromasia 2+; Lymphocytes % 7 % (10-50); Monocytes % 4 % (2-9); Neutrophils % 89 % (42-76); Total Cells Counted 100
[2018-09-21 06:35] LABS: Anion Gap 10.5 mEq/L (5-15); Calcium 8.5 mg/dL (8.5-10.1); Potassium 4.5 mmoL/L (3.5-5.1)
--- NOTE | 2018-09-21 07:28 | Progress Note ---
Internal Medicine - PN: Subj *Date: 09/21/18 *Time: 07:27 Interval history: Patient reports "feeling some better". He feels mostly is at the diuretics are working well as his abdomen feels less tight. He feels like he is starting to breathe a little bit better as well. He has ambulated minimally Exam Vital signs and Labs for Last 24 Hours: Temp Pulse Resp BP Pulse Ox 97.5 F L 80 18 111/72 97 09/21/18 04:00 09/21/18 06:34 09/21/18 04:00 09/21/18 04:00 09/21/18 06:34 Laboratory Results - last 24 hr 09/20/18 06:17: Total Counted 100, Neutrophils % (Manual) 89 H, Lymphocytes % (Manual) 7 L, Monocytes % (Manual) 4, Platelet Estimate Normal, Hypochromasia 2+ 09/21/18 06:15: Sodium 134 L, Potassium 4.5, Chloride 96 L, Carbon Dioxide 32 D , Anion Gap 10.5, BUN 41 H D, Creatinine 1.56 H, Estimated Creat Clear 56, Estimated GFR 43 L, Est GFR ( Amer) 53 L, Glucose 163 H, Calcium 8.5 I & O for Last 24 hours: Intake & Output 09/18/18 09/19/18 09/20/18 09/21/18 11:59 11:59 11:59 11:59 Intake Total 1390 / 1390 580 / 580 Output Total 2575 / 2575 3475 / 3475 Balance -1185 / -1185 -2895 / -2895 Weight 221 lb 6.987 oz 218 lb 3 oz Microbiology Reports for the Last 24 Hours: Microbiology 09/19/18 22:09 Sputum - Expectorated Sputum Gram Stain - Final 09/19/18 22:09 Sputum - Expectorated Sputum Sputum Culture - Preliminary Narrative: He looks more comfortable. Lung exam has diffuse expiratory wheezes still and there are less rhonchi today than yesterday. Heart has a regular rate and rhythm. Abdomen is soft. Assessment and Plan (1) Acute and chronic respiratory failure Current visit: No Status: Acute Category: Medical Code(s): J96.20 - Acute and chronic respiratory failure, unspecified whether with hypoxia or hypercapnia (2) Acute exacerbation of chronic obstructive airways disease Current visit: No Status: Acute Category: Medical Code(s): J44.1 - Chronic obstructive pulmonary disease with (acute) exacerbation (3) Non-cardiac chest pain Current visit: No Status: Acute Category: Medical Code(s): R07.89 - Other chest pain (4) Chronic diastolic CHF (congestive heart failure), NYHA class 3 Current visit: No Status: Chronic Category: Medical Code(s): I50.32 - Chronic diastolic (congestive) heart failure - Assessment and plan all Dx Assessment and Plan for all problems:: 1. No change in plan of care other than encourage the patient to ambulate more today
[2018-09-22 06:41] LABS: Anion Gap 11.3 mEq/L (5-15); Potassium 4.3 mmoL/L (3.5-5.1)
--- NOTE | 2018-09-22 07:38 | Progress Note ---
Internal Medicine - PN: Subj *Date: 09/22/18 *Time: 07:36 Interval history: Patient does not feel any better but also does not feel any worse. He continues to complain of chest pain that is described as very sharp and starting in the anterior chest and radiating through to the shoulder blades. He request pain medicine for this frequently although the pain continues to happen which I have pointed out to the patient likely meets the pain medicine is not very effective. His sputum culture has returned Staphylococcus hemolyticus that is sensitive to vancomycin. Exam Vital signs and Labs for Last 24 Hours: Temp Pulse Resp BP Pulse Ox 97.5 F L 80 18 118/72 98 09/22/18 04:00 09/22/18 06:32 09/22/18 04:00 09/22/18 04:00 09/22/18 06:32 Laboratory Results - last 24 hr 09/22/18 06:18: Sodium 136, Potassium 4.3, Chloride 97 L, Carbon Dioxide 32, Anion Gap 11.3, BUN 49 H, Creatinine 1.50 H, Estimated Creat Clear 58, Estimated GFR 46 L, Est GFR ( Amer) 55 L, Glucose 165 H, Calcium 8.0 L I & O for Last 24 hours: Intake & Output 09/19/18 09/20/18 09/21/18 09/22/18 11:59 11:59 11:59 11:59 Intake Total 1390 / 1390 970 / 970 1262 / 1262 Output Total 2575 / 2575 4175 / 4175 3200 / 3200 Balance -1185 / -1185 -3205 / -3205 -1938 / -1938 Weight 221 lb 6.987 oz 218 lb 3 oz 214 lb 2 oz Microbiology Reports for the Last 24 Hours: Microbiology 09/19/18 22:09 Sputum - Expectorated Sputum Gram Stain - Final 09/19/18 22:09 Sputum - Expectorated Sputum Sputum Culture - Final Staphylococcus haemolyticus Narrative: Patient is awake and eating breakfast. Lungs have expiratory wheezes anteriorly and some faint rhonchi posteriorly. Heart has a regular rate and rhythm. Abdomen is soft Assessment and Plan (1) Acute and chronic respiratory failure Current visit: No Status: Acute Category: Medical Code(s): J96.20 - Acute and chronic respiratory failure, unspecified whether with hypoxia or hypercapnia (2) Acute exacerbation of chronic obstructive airways disease Current visit: No Status: Acute Category: Medical Code(s): J44.1 - Chronic obstructive pulmonary disease with (acute) exacerbation (3) Non-cardiac chest pain Current visit: No Status: Acute Category: Medical Code(s): R07.89 - Other chest pain (4) Chronic diastolic CHF (congestive heart failure), NYHA class 3 Current visit: No Status: Chronic Category: Medical Code(s): I50.32 - Chronic diastolic (congestive) heart failure - Assessment and plan all Dx Assessment and Plan for all problems:: 1. Change to IV vancomycin 2. Repeat x-ray 3. Continue IV Lasix as patient has lost 13 pounds during his brief hospitalization so far
--- NOTE | 2018-09-22 09:19 | Pharmacy Consult Notes ---
- Pharmacy Consult Date: 09/22/18 Time: 09:18 Referring provider: DR. BLANCO Reason for Consult:: VANCOMYCIN DOSING Allergies and ADEs:: Allergies Allergy/AdvReac Type Severity Reaction Status Date / Time No Known Allergies Allergy Verified 09/11/18 13:24 Home Medications:: Home Medications Medication Instructions Recorded Confirmed Type Aspirin [Aspirin 81mg EC Tab] 81 mg PO DAILY 09/29/17 09/19/18 History Tamsulosin HCl [Flomax 0.4mg 0.4 mg PO HS 05/05/18 09/19/18 History capsule] diphenhydrAMINE HCl [Antihistamine] 50 mg PO Q8HP PRN 05/06/18 09/19/18 History Fluticasone/Umeclidin/Vilanter 1 puff IH DAILY 05/07/18 09/19/18 History [Trelegy Ellipta 100-62.5-25] Ipratropium/Albuterol Sulfate 3 ml IH [id number] PRN 05/07/18 09/11/18 History [Iprat-Albut 0.5-3(2.5) mg/3 ml] Spironolactone 25 mg PO DAILY 06/26/18 09/19/18 History Potassium Chloride 20 meq PO DAILY 08/21/18 09/19/18 History predniSONE [Deltasone 10mg tablet] 10 mg PO Q48H 08/22/18 09/19/18 History furosemide 40 mg tablet 40 mg PO BID tab 08/29/18 09/19/18 History Docusate Sodium [Col-Rite] 50 mg PO DAILY PRN 09/19/18 09/19/18 History Hydrocodone/Acetaminophen 1 each PO TID PRN 09/19/18 09/19/18 History [Hydrocodon-Acetaminoph 7.5-325] Omeprazole 20 mg PO DAILY 09/19/18 09/19/18 History levoFLOXacin [Levofloxacin 750MG 750 mg PO DAILY 09/19/18 09/19/18 History Tablet] Height: 1.83 m Weight: 97.125 kg Laboratory Results:: Laboratory Results - last 24 hr 09/22/18 06:18: Sodium 136, Potassium 4.3, Chloride 97 L, Carbon Dioxide 32, Anion Gap 11.3, BUN 49 H, Creatinine 1.50 H, Estimated Creat Clear 58, Estimated GFR 46 L, Est GFR ( Amer) 55 L, Glucose 165 H, Calcium 8.0 L Medical History: Reports:: Arrhythmia, Asthma, Atrial Fibrillation, Congestive Heart Failure, Chronic Obstructive Pulmonary Disease (COPD), Home Oxygen, Hypertension, Internal Pacemaker, Lung Disease, Kidney Stones, Myocardial Infarction Denies:: Cancer, Diabetes Mellitus Type 1, Diabetes Mellitus Type 2, MRSA Assessment and Plan (1) Acute and chronic respiratory failure Current visit: No Status: Acute Category: Medical Code(s): J96.20 - Acute and chronic respiratory failure, unspecified whether with hypoxia or hypercapnia (2) Acute exacerbation of chronic obstructive airways disease Current visit: No Status: Acute Category: Medical Code(s): J44.1 - Chronic obstructive pulmonary disease with (acute) exacerbation (3) Non-cardiac chest pain Current visit: No Status: Acute Category: Medical Code(s): R07.89 - Other chest pain (4) Chronic diastolic CHF (congestive heart failure), NYHA class 3 Current visit: No Status: Chronic Category: Medical Code(s): I50.32 - Chronic diastolic (congestive) heart failure - Assessment and plan all Dx Assessment and Plan for all problems:: BASED ON PATIENT FACTORS, RECOMMEND VANCOMYCIN 2 GM IV ONCE, FOLLOWED BY VANCOMYCIN 1750 MG IV Q24H. PHARMACY WILL FOLLOW DAILY AND ADJUST APPROPRIATE.
--- NOTE | 2018-09-22 10:58 | Progress Note ---
Internal Medicine - PN: Subj *Date: 09/22/18 *Time: 10:58 Exam Vital signs and Labs for Last 24 Hours: Temp Pulse Resp BP Pulse Ox 97.6 F 82 20 118/85 95 09/22/18 08:00 09/22/18 10:33 09/22/18 08:00 09/22/18 08:00 09/22/18 08:00 Laboratory Results - last 24 hr 09/22/18 06:18: Sodium 136, Potassium 4.3, Chloride 97 L, Carbon Dioxide 32, Anion Gap 11.3, BUN 49 H, Creatinine 1.50 H, Estimated Creat Clear 58, Estimated GFR 46 L, Est GFR ( Amer) 55 L, Glucose 165 H, Calcium 8.0 L I & O for Last 24 hours: Intake & Output 09/19/18 09/20/18 09/21/18 09/22/18 23:59 23:59 23:59 23:59 Intake Total 510 / 510 1510 / 1510 1302 / 1302 560 / 560 Output Total 1125 / 1125 2825 / 2825 4150 / 4150 2049 / 2049 Balance -615 / -615 -1315 / -1315 -2848 / -2848 -1490 / -1490 Weight 102.994 kg 100.442 kg 98.968 kg 97.125 kg Microbiology Reports for the Last 24 Hours: Microbiology 09/19/18 22:09 Sputum - Expectorated Sputum Gram Stain - Final 09/19/18 22:09 Sputum - Expectorated Sputum Sputum Culture - Final Staphylococcus haemolyticus Assessment and Plan (1) Acute and chronic respiratory failure Current visit: No Status: Acute Category: Medical Code(s): J96.20 - Acute and chronic respiratory failure, unspecified whether with hypoxia or hypercapnia (2) Acute exacerbation of chronic obstructive airways disease Current visit: No Status: Acute Category: Medical Code(s): J44.1 - Chronic obstructive pulmonary disease with (acute) exacerbation (3) Non-cardiac chest pain Current visit: No Status: Acute Category: Medical Code(s): R07.89 - Other chest pain (4) Chronic diastolic CHF (congestive heart failure), NYHA class 3 Current visit: No Status: Chronic Category: Medical Code(s): I50.32 - Chronic diastolic (congestive) heart failure The patient's infection will respond to the chosen ABx?: Yes Is the patient receiving the right drug, dose, and route?: Yes Could a more targeted ABx be ordered?: No (CULTURE SENSITIVE TO VANCOMYCIN)
--- NOTE | 2018-09-23 07:46 | Swing Bed Reports ---
*Admission Date: 09/19/18 *Chief complaint: Shortness of breath *History of present illness: 77-year-old male with very severe COPD was admitted from the office after a COPD exacerbation that did not respond to outpatient treatment. Patient was admitted and placed on IV steroids, broad-spectrum antibiotics due to history of Pseudomonas, duo nebs and intravenous diuretics. Hospital Course Hospital Course: Patient was admitted and continued on treatments. Once his sputum culture returned Staphylococcus hemolyticus antibiotics were changed to vancomycin. Patient showed gradual improvement each day especially because of significant weight loss from diuresis. Fluid restrictions were in force of 1200 mL's per day. Because his Staphylococcus hemolyticus would require IV antibiotics patient was placed in swing bed to continue course of IV vancomycin. Exam Vital signs and Labs for Last 24 Hours: Temp Pulse Resp BP Pulse Ox 97.5 F L 84 22 116/68 96 09/23/18 04:00 09/23/18 05:48 09/23/18 04:00 09/23/18 04:00 09/23/18 05:48 I & O for Last 24 hours: Intake & Output 09/20/18 09/21/18 09/22/18 09/23/18 11:59 11:59 11:59 11:59 Intake Total 1390 / 1390 970 / 970 1522 / 1522 1124 / 1124 Output Total 2575 / 2575 4175 / 4175 4100 / 4100 3565 / 3565 Balance -1185 / -1185 -3205 / -3205 -2578 / -2578 -2441 / -2441 Weight 221 lb 6.987 oz 218 lb 3 oz 214 lb 2 oz 210 lb Microbiology Reports for the Last 24 Hours: Microbiology 09/19/18 22:09 Sputum - Expectorated Sputum Gram Stain - Final 09/19/18 22:09 Sputum - Expectorated Sputum Sputum Culture - Final Staphylococcus haemolyticus Narrative: Patient is is awake and alert in bed. From bedside he can be heard wheezing. Oropharynx is moist. Neck is without lymphadenopathy. Lungs have diffuse expiratory wheezes with mixed rhonchi. Heart has regular rate and rhythm. Abdomen is obese, soft and nontender. Patient has 1+ edema of the lower extremities. DS: Diagnosis - Discharge Diagnosis (1) Acute and chronic respiratory failure Status: Acute (2) Acute exacerbation of chronic obstructive airways disease Status: Acute (3) Non-cardiac chest pain Status: Acute (4) Chronic diastolic CHF (congestive heart failure), NYHA class 3 Status: Chronic Discharge/Transfer (Swing Bed) - Plan of Care Resident has been informed of condition and prognosis?: Yes Mobility Status: ambulatory w/o assistance Goal of treatment:: Treat infection Rehab Potential: Fair Prognosis:: Fair Mental Status: Average I concur with the most recent H&P: Yes Date of most recent H&P: 09/19/18 Certification: I have reviewed and agree with this resident's plan of care. I certify that post-hospital fpc facility services are required to be given on an inpatient basis because of the need for fpc care on a continuing basis for the condition(s) for which he/she is receiving inpatient hospital services prior to admission to [facility]. I also certify that the resident meets existing SNF level of care definition. - Discharge from Acute Disposition: [facility] Current Home Med List: Home Medications Medication Instructions Recorded Confirmed Type Docusate Sodium [Col-Rite] 50 mg PO DAILY PRN 09/19/18 09/19/18 History Hydrocodone/Acetaminophen 1 each PO TID PRN 09/19/18 09/19/18 History [Hydrocodon-Acetaminoph 7.5-325] Omeprazole 20 mg PO DAILY 09/19/18 09/19/18 History levoFLOXacin [Levofloxacin 750MG 750 mg PO DAILY 09/19/18 09/19/18 History Tablet] Home Med List for [facility]: New Vancomycin HCl [Vancomycin 1000mg Vial] 1,750 mg IV Q24H vial predniSONE [Deltasone 20mg tablet] 20 mg PO DAILY tablet Pantoprazole Sodium [Protonix 40mg tablet] 40 mg PO BID tablet. Hydrocod/Acet 5/325 mg [[place] 5/325mg tablet] 1 tab PO Q4HP PRN tablet PRN Reason: Mild To Moderate Pain Furosemide [Lasix 40mg/4mL vial] 40 mg IV TID vial guaiFENesin [Mucinex 600mg tablet] 1,200 mg PO BID tab.er.12h Continue Aspirin [Aspirin 81mg EC Tab] 81 mg PO DAILY Fluticasone/Umeclidin/Vilanter [Trelegy Ellipta 100-62.5-25] 1 puff IH DAILY Spironolactone 25 mg PO DAILY Potassium Chloride 20 meq PO DAILY Tamsulosin HCl [Flomax 0.4mg capsule] 0.4 mg PO HS Docusate Sodium [Col-Rite] 50 mg PO DAILY PRN PRN Reason: Constipation Discontinued furosemide 40 mg tablet 40 mg PO BID tab Ipratropium/Albuterol Sulfate [Iprat-Albut 0.5-3(2.5) mg/3 ml] 3 ml IH [id number] PRN PRN Reason: Shortness Of Breath predniSONE [Deltasone 10mg tablet] 10 mg PO Q48H Omeprazole 20 mg PO DAILY Hydrocodone/Acetaminophen [Hydrocodon-Acetaminoph 7.5-325] 1 each PO TID PRN PRN Reason: PAIN diphenhydrAMINE HCl [Antihistamine] 50 mg PO Q8HP PRN PRN Reason: ALLERGIES levoFLOXacin [Levofloxacin 750MG Tablet] 750 mg PO DAILY
== END 2018-09-23 11:06 | disposition swing bed (61) | DRG 190 ==
LOC: 2ND 13:53
PROVIDERS: ADMIT Family Medicine; ATTEND Family Medicine
CPT/HCPCS: 36415; 71010; 71020; 71045; 71046; 80048; 85007; 85025; 86580; 87070; 87077; 87186; 87205; 94640; 94761; J1956; J2405; J3370

== ENCOUNTER 2018-09-23 11:09 | Inpatient (IN) ==
--- NOTE | 2018-09-23 11:52 | Pharmacy Consult Notes ---
[facility] Pharmacy VTE Monitoring - Patient Demographics Admission date: 09/23/18 Report Date: 09/23/18 Time: 11:52 Allergies/Adverse Reactions: Patient Allergies No Known Allergies Allergy (Verified 09/11/18 13:24) Height: 1.83 m Weight: 95.254 kg - Prophylaxis VTE Prophylaxis Ordered?: Yes Types of VTE Prophylaxis: TEDS Knee High Location of Applied Device: Bilateral Lower Extremeties - VTE Diagnosis Confirmed Treatment or plan recommended: Continue Current Treatment
[2018-09-25 08:58] LABS: Anion Gap 10.1 mEq/L (5-15); Calcium 8.3 mg/dL (8.5-10.1); Potassium 4.1 mmoL/L (3.5-5.1)
--- NOTE | 2018-09-25 10:48 | Pharmacy Consult Notes ---
- Pharmacy Consult Date: 09/25/18 Time: 10:47 Referring provider: DR. BLANCO Reason for Consult:: VANCOMYCIN TROUGH LEVEL Allergies and ADEs:: Allergies Allergy/AdvReac Type Severity Reaction Status Date / Time No Known Allergies Allergy Verified 09/11/18 13:24 Home Medications:: Home Medications Medication Instructions Recorded Confirmed Type Aspirin [Aspirin 81mg EC Tab] 81 mg PO DAILY 09/29/17 09/23/18 History Tamsulosin HCl [Flomax 0.4mg 0.4 mg PO HS 05/05/18 09/23/18 History capsule] Fluticasone/Umeclidin/Vilanter 1 puff IH DAILY 05/07/18 09/23/18 History [[place] Ellipta 100-62.5-25] Spironolactone 25 mg PO DAILY 06/26/18 09/23/18 History Potassium Chloride 20 meq PO DAILY 08/21/18 09/23/18 History Docusate Sodium [Col-Rite] 50 mg PO DAILY PRN 09/19/18 09/23/18 History Furosemide [Lasix 40mg/4mL vial] 40 mg IV TID 09/23/18 09/23/18 History Hydrocod/Acet 5/325 mg [[place] 1 tab PO Q4HP PRN tablet 09/23/18 09/23/18 Rx 5/325mg tablet] Pantoprazole Sodium [Protonix 40mg 40 mg PO BID 09/23/18 09/23/18 History tablet] Vancomycin HCl [Vancomycin 1000mg 1,750 mg IV Q24H 09/23/18 09/23/18 History Vial] guaiFENesin [Mucinex 600mg tablet] 1,200 mg PO BID 09/23/18 09/23/18 History predniSONE [Deltasone 20mg 20 mg PO DAILY 09/23/18 09/23/18 History tablet] Height: 1.83 m Weight: 94.007 kg Laboratory Results:: Laboratory Results - last 24 hr 09/25/18 08:37: Vancomycin Trough 14.4 09/25/18 08:37: Sodium 136, Potassium 4.1, Chloride 96 L, Carbon Dioxide 34 H, Anion Gap 10.1, BUN 48 H, Creatinine 1.64 H, Estimated Creat Clear 51, Estimated GFR 41 L, Est GFR ( Amer) 50 L, Glucose 202 H, Calcium 8.3 L Medical History: Reports:: Arrhythmia, Asthma, Atrial Fibrillation, Congestive Heart Failure, Chronic Obstructive Pulmonary Disease (COPD), Home Oxygen, Hypertension, Internal Pacemaker, Lung Disease, Kidney Stones, Myocardial Infarction Denies:: Cancer, Diabetes Mellitus Type 1, Diabetes Mellitus Type 2, MRSA Assessment and Plan - Assessment and plan all Dx Assessment and Plan for all problems:: BASED ON VANCOMYCIN TROUGH LEVEL AND PATIENT FACTORS, RECOMMEND VANCOMYCIN 1750 MG IV Q24H. PHARMACY WILL CONTINUE TO MONITOR DAILY AND ADJUST APPROPRIATE.
--- NOTE | 2018-09-27 06:53 | Discharge Summary ---
General - General Admission date:: 09/23/18 Discharge date: 09/27/18 HPI HPI: 77-year-old male with hospitalization for COPD exacerbation and acute on chronic diastolic heart failure was admitted to swing bed for continued IV vancomycin for staphylococcal hemolyticus bronchitis and continued diuresis. Hospital Course Hospital Course: Patient was admitted to a swing bed and continued on IV vancomycin where he finished a 7-day course for staphylococcal hemolyticus acute bronchitis. Patient was also diuresed with Lasix. During his hospitalization prior to transfer to swing bed he was on Lasix 40 mg intravenously 3 times daily. At discharge to swing bed this was transitioned to twice daily and then later on to oral Lasix. Overall during hospitalization patient lost over 20 pounds in water weight. On September 27 he had completed a course of antibiotics. He was ambulating better although has chronic dyspnea from his COPD. Lung exam had improved to rhonchi only without wheezing on the day of discharge. Patient will follow-up in the office in 1 week Objective Vital signs: Temp Pulse Resp BP Pulse Ox 97.6 F 80 20 102/63 L 95 09/26/18 20:00 09/26/18 20:00 09/26/18 20:00 09/26/18 20:00 09/27/18 04:00 DS: Diagnosis - Discharge Diagnosis (1) Acute and chronic respiratory failure Status: Acute (2) Acute exacerbation of chronic obstructive airways disease Status: Acute (3) Acute on chronic diastolic heart failure Status: Acute Discharge Plan - Patient Discharge Instructions ACTIVITY: Continue current activity DIET: continue same diet Additional Instructions: Bring all medicines to follow-up appointment Patient Instructions: Fluid Restricted Diet, DI for Multiple Drug-resistant Organism (MDRO) Infection - Follow up Plan Follow up with: Sharan Tariq MD [Primary Care Provider] - 10/04/18 1:00 pm Disposition: Home, Self-Jail Medications: Home Medications Medication Instructions Recorded Confirmed Type Aspirin [Aspirin 81mg EC Tab] 81 mg PO DAILY 09/29/17 09/23/18 History Tamsulosin HCl [Flomax 0.4mg 0.4 mg PO HS 05/05/18 09/23/18 History capsule] Fluticasone/Umeclidin/Vilanter 1 puff IH DAILY 05/07/18 09/23/18 History [Trelegy Ellipta 100-62.5-25] Spironolactone 25 mg PO DAILY 06/26/18 09/23/18 History Potassium Chloride 20 meq PO DAILY 08/21/18 09/23/18 History Docusate Sodium [Col-Rite] 50 mg PO DAILY PRN 09/19/18 09/23/18 History Furosemide [Lasix 40mg/4mL vial] 40 mg IV TID 09/23/18 09/23/18 History Hydrocod/Acet 5/325 mg [[place] 1 tab PO Q4HP PRN tablet 09/23/18 09/23/18 Rx 5/325mg tablet] Pantoprazole Sodium [Protonix 40mg 40 mg PO BID 09/23/18 09/23/18 History tablet] Vancomycin HCl [Vancomycin 1000mg 1,750 mg IV Q24H 09/23/18 09/23/18 History Vial] guaiFENesin [Mucinex 600mg tablet] 1,200 mg PO BID 09/23/18 09/23/18 History predniSONE [Deltasone 20mg 20 mg PO DAILY 09/23/18 09/23/18 History tablet] Prescriptions/Medication Reconciliation: New Furosemide [Lasix 40mg tablet] 40 mg PO BIDL tablet Continue Aspirin [Aspirin 81mg EC Tab] 81 mg PO DAILY Fluticasone/Umeclidin/Vilanter [Trelegy Ellipta 100-62.5-25] 1 puff IH DAILY Spironolactone 25 mg PO DAILY Potassium Chloride 20 meq PO DAILY guaiFENesin [Mucinex 600mg tablet] 1,200 mg PO BID Pantoprazole Sodium [Protonix 40mg tablet] 40 mg PO BID Tamsulosin HCl [Flomax 0.4mg capsule] 0.4 mg PO HS predniSONE [Deltasone 20mg tablet] 20 mg PO DAILY Changed Hydrocod/Acet 5/325 mg [[place] 5/325mg tablet] 1 tab PO Q8HP PRN #0 tablet PRN Reason: Mild To Moderate Pain Discontinued Vancomycin HCl [Vancomycin 1000mg Vial] 1,750 mg IV Q24H Docusate Sodium [Col-Rite] 50 mg PO DAILY PRN PRN Reason: Constipation Furosemide [Lasix 40mg/4mL vial] 40 mg IV TID
== END 2018-09-27 11:00 | disposition home or self-care (01) | DRG 190 ==
LOC: 2ND 11:09
PROVIDERS: ADMIT Family Medicine; ATTEND Family Medicine
CPT/HCPCS: 36569; 71010; 71045; 80048; 80202; 86580; 94640; 94761; 97116; 97530; C1751; J2405; J3370

== ENCOUNTER → 2018-10-01 09:09 | Outpatient (POV) | payer MEDICARE, MEDICAID, SELFPAY | PROVIDERS: Visit Provider Internal Medicine | DX: Z00.00 Encounter for general adult medical examination without abnormal findings (principal) ==

== ENCOUNTER 2018-10-10 13:09 | Observation (INO) ==
[2018-10-10 13:33] LABS: Basophils # 0.1 K/mm3 (0-0.2); Basophils % 0.4 % (0.1-2.0); Eosinophils # 0.2 K/mm3 (0.0-0.4); Hematocrit 48.6 % (42.0-52.0); Lymphocytes # 1.9 K/mm3 (0.7-4.5); Lymphocytes % 9.9 % (10-50); Mean Corpuscular HGB Conc 30.9 g/dL (31.8-35.4); Mean Corpuscular Hemoglobin 26.2 pg (27.0-31.2); Mean Corpuscular Volume 84.9 fl (80-94); Monocytes # 0.6 K/mm3 (0.1-1.0); Neutrophils # 16.6 K/mm3 (1.8-7.8); Neutrophils % 85.7 % (37.0-80.0); Platelet Count 169 K/mm3 (142-424); Red Blood Count 5.72 M/mm3 (4.60-6.20); Red Cell Distribution Width 17.2 % (11.5-17.5); White Blood Count 19.3 K/mm3 (4.8-10.8)
[2018-10-10 13:41] LABS: Alanine Aminotransferase 21 U/L (12-78); Albumin Level 2.7 gm/dL (3.4-5.0); Albumin/Globulin Ratio 0.6 (1.1-1.8); Alkaline Phosphatase 97 U/L (46-116); Anion Gap 11.6 mEq/L (5-15); Aspartate Amino Transferase 11 U/L (15-37); Bilirubin,Total 0.6 mg/dL (0.2-1.0); Blood Urea Nitrogen 17 mg/dL (7-18); Calcium 8.4 mg/dL (8.5-10.1); Carbon Dioxide 36 mmol/L (21.0-32.0); Chloride 93 mmol/L (98-107); Globulin 4.2 gm/dl (1.3-3.2); Glucose 172 mg/dL (74-106); Potassium 3.6 mmoL/L (3.5-5.1); Sodium 137 mmol/L (136-145); Total Protein,Serum 6.9 gm/dL (6.4-8.2)
[2018-10-10 14:14] LABS: ABG Base Excess 11.2 mmol/L (-2.4-2.3); ABG Oxygen Saturation 93 % (90-100); ABG PH 7.46 mmol/L (7.35-7.45); ABG PO2 65.6 mmhg (80-100); ABG TCO2 36.6 mmhg (23-27)
[2018-10-10 14:15] LABS: Hypochromasia 2+; Lymphocytes % 10 % (10-50); Monocytes % 2 % (2-9); Neutrophils % 88 % (42-76); Total Cells Counted 100
[2018-10-10 14:15] LABS: Oxygen 2LPM %
[2018-10-10 14:16] LABS: ABG PCO2 50.6 mmhg (35.0-45.0)
--- NOTE | 2018-10-10 14:18 | Emergency Department Note ---
ED Disposition Clinical Impression: Congestive heart failure Qualifiers: Heart failure type: other Qualified Code(s): I50.9 - Heart failure, unspecified Pneumonia Qualifiers: Pneumonia type: due to unspecified organism Laterality: unspecified laterality Lung location: unspecified part of lung Qualified Code(s): J18.9 - Pneumonia, unspecified organism Disposition: Admitted as Observation Condition on Discharge: Good Referrals: Provider,Referral, [Primary Care Provider] - - Critical Care Critical Care Time: No Attestation: On 10/10/18, the high probability of a clinically significant, sudden or life threatening deterioration of the following system(s) required my full and direct attention, intervention and personal management. The time I documented below is in addition to time spent performing reported procedures but includes the following listed in this critical care notation. Medical Decision Making - Medical Records Medical records reviewed: Yes: I reviewed the patient's medical records. - [place] Inquiry Pt receiving controlled substance: No Vital Signs: 10/10/18 13:02 10/10/18 13:03 10/10/18 13:32 Temperature 98.1 F Temperature Source Axillary Pulse Rate Pulse Rate [Apical] 85 80 85 Respiratory Rate 48 H 52 H Blood Pressure [Right Radial Artery] 122/82 116/72 114/78 Blood Pressure Mean [Right Radial Artery] 95 86 90 Blood Pressure Source [Right Radial Artery] Automatic Cuff Automatic Cuff Automatic Cuff Blood Pressure Position [Right Radial Artery] Sitting Sitting Sitting 02 Sat by Pulse Oximetry 93 L 93 L Oxygen Delivery Method Nasal Cannula Nasal Cannula Oxygen Flow Rate (LPM) 2 10/10/18 13:59 10/10/18 14:02 10/10/18 14:23 Temperature Temperature Source Pulse Rate Pulse Rate [Apical] 88 71 80 Respiratory Rate 48 H 16 16 Blood Pressure [Right Radial Artery] 131/84 177/71 H 120/85 Blood Pressure Mean [Right Radial Artery] 99 106 96 Blood Pressure Source [Right Radial Artery] Automatic Cuff Automatic Cuff Automatic Cuff Blood Pressure Position [Right Radial Artery] Sitting Sitting Sitting 02 Sat by Pulse Oximetry 93 L 92 L Oxygen Delivery Method Nasal Cannula Nasal Cannula Oxygen Flow Rate (LPM) 2 2 10/10/18 14:39 Temperature Temperature Source Pulse Rate 80 Pulse Rate [Apical] Respiratory Rate Blood Pressure [Right Radial Artery] Blood Pressure Mean [Right Radial Artery] Blood Pressure Source [Right Radial Artery] Blood Pressure Position [Right Radial Artery] 02 Sat by Pulse Oximetry 97 Oxygen Delivery Method Nasal Cannula Oxygen Flow Rate (LPM) 2 - Lab Data Lab results reviewed: Yes: I reviewed the patient's lab results. Lab Results 10/10/18 13:00: WBC 19.3 H, RBC 5.72, Hgb 15.0, Hct 48.6, MCV 84.9, MCH 26.2 L, MCHC 30.9 L, RDW 17.2, Plt Count 169, MPV 9.0, Neut % (Auto) 85.7 H, Lymph % (Auto) 9.9 L, [place] % (Auto) 3.0, Eos % (Auto) 1.0, Baso % (Auto) 0.4, Neut # (Auto) 16.6 H, Lymph # (Auto) 1.9, [place] # (Auto) 0.6, Eos # (Auto) 0.2, Baso # (Auto) 0.1, Total Counted 100, Neutrophils % (Manual) 88 H, Lymphocytes % (Manual) 10, Monocytes % (Manual) 2, Platelet Estimate Normal, Hypochromasia 2+ 10/10/18 13:00: Sodium 137, Potassium 3.6, Chloride 93 L, Carbon Dioxide 36 H, Anion Gap 11.6, BUN 17, Creatinine 1.44 H, Estimated Creat Clear 59, Estimated GFR 48 L, Est GFR ( Amer) 58 L, Glucose 172 H, Calcium 8.4 L, Total Bilirubin 0.6, AST 11 L, ALT 21, Alkaline Phosphatase 97, Troponin I < 0.02, Total Protein 6.9, Albumin 2.7 L, Globulin 4.2 H, Albumin/Globulin Ratio 0.6 L 10/10/18 13:00: D-Dimer 395 10/10/18 13:00: B-Natriuretic Peptide 45 10/10/18 13:12: Specimen Source R brachial, O2 % 2lpm, ABG pH 7.46 H, ABG pCO2 50.6 H, ABG pO2 65.6 L, ABG HCO3 35.0 H, ABG Total CO2 36.6 H, ABG O2 Saturation 93, ABG Base Excess 11.2 H 10/10/18 13:44: POC Glucose 186 H 10/10/18 14:06: Lactate 2.4 H Result diagrams: 10/10/18 13:00 10/10/18 13:00 Orders (Tests/Meds): ED MEDICATIONS Generic Name Dose Route Start Last Admin Trade Name Freq PRN Reason Stop Dose Admin Sodium Chloride 500 mls @ 999 mls/hr 10/10/18 15:30 Sod Chlor 0.9% 1000ml Bag IV 10/10/18 16:00 .Q31M PATRICK Levofloxacin/Dextrose 500 mg in 100 mls @ 100 mls/hr 10/10/18 15:30 Levaquin 500mg/100ml Premix IV 10/24/18 15:29 Q24H PATRICK Protocol Discontinued Medications Generic Name Dose Route Start Last Admin Trade Name Freq PRN Reason Stop Dose Admin Acetaminophen 1,000 mg 10/10/18 15:40 Tylenol 500mg Tablet PO 10/10/18 15:41 ONCE ONE Albuterol/Ipratropium 3 ml 10/10/18 14:14 10/10/18 14:38 Duoneb 3ml Neb IH 10/10/18 14:15 3 ml ONCE ONE Administration ORDERS Category Date Time Status Blood Culture Stat Micro 10/10/18 14:00 Received - Radiology Data #1 Image Reviewed: Yes I have reviewed radiologist's interpretation - ECG Data Tracing #1 I reviewed this ECG and interpreted as documented below: Normal Sinus Rhythm: No (v paced 80) Medical Decision Narrative: admit and treatment directed by Dr Tariq General Adult HPI - General Chief complaint: Shortness of Breath/Dyspnea Stated complaint: SOA Time Seen by Provider: 10/10/18 14:14 Mode of Arrival: EMS Source of Information: Patient Limitations: Physical Limitations Description of Symptoms (Recalled from ER Triage Doc. by RN): SOA. HOME HEALTH NURSE CALLED EMS AND WAS PRESENT AT THE HOUSE WHEN EMS ARRIVED. PATIENT HAS SCATTERED RHONCHI AND CRACKLES NOTED T/O LUNG BURCIAGA. - History of Present Illness HPI narrative: mild to mod constant short breath today +ROSALES, no pain, no fever, no injury - Related Data Home Medications Medication Instructions Recorded Confirmed Aspirin [Aspirin 81mg EC Tab] 81 mg PO DAILY 09/29/17 10/10/18 Tamsulosin HCl [Flomax 0.4mg 0.4 mg PO HS 05/05/18 10/10/18 capsule] Fluticasone/Umeclidin/Vilanter 1 puff IH DAILY 05/07/18 10/10/18 [[place] Ellipta 100-62.5-25] Spironolactone 25 mg PO DAILY 06/26/18 10/10/18 Potassium Chloride 20 meq PO DAILY 08/21/18 10/10/18 Pantoprazole Sodium [Protonix 40mg 40 mg PO BID 09/23/18 10/10/18 tablet] predniSONE [Deltasone 20mg 10 mg PO DAILY 09/23/18 10/10/18 tablet] Azithromycin [Zithromax 250mg 250 mg PO DAILY 10/10/18 10/10/18 tab] Furosemide [Lasix 40mg tablet] 40 mg PO TID 10/10/18 10/10/18 diphenhydrAMINE HCl 25 mg PO Q8HP PRN 10/10/18 10/10/18 [Diphenhydramine HCl] Previous Rx's Medication Instructions Recorded Hydrocod/Acet 5/325 mg [[place] 1 tab PO Q8HP PRN #0 tab 09/27/18 5/325mg tablet] Allergies Allergy/AdvReac Type Severity Reaction Status Date / Time No Known Allergies Allergy Verified 10/10/18 13:35 [facility] History - Hepatitis A Screen Drug use history?: No High risk sexual behaviors?: No History of sexually transmitted infection?: No Currently employed?: No Childcare worker?: No Do you have indoor plumbing?: No Do you have electricity?: No Attestation statement:: This patient has been screened for Hepatitis A risk factors. Medical History: Reports:: Arrhythmia, Asthma, Atrial Fibrillation, Congestive Heart Failure, Chronic Obstructive Pulmonary Disease (COPD), Home Oxygen, Hypertension, Internal Pacemaker, Lung Disease, Kidney Stones, Myocardial Infarction Denies:: Cancer, Diabetes Mellitus Type 1, Diabetes Mellitus Type 2, MRSA Other Medical History: Reports: Arthritis Comment: Cardiac ablation for atrial fibrillation Laterality Cases: Right: Arthroscopy Knee, Bilateral: Other Other Surgeries: Yes: Hernia Repair (X2), Pacemaker, Other (shoulder surgery) Amputation: No Fractures: No - Social History Smoking Status: Former smoker Tobacco Type: cigarettes # Packs/Day (cigarettes): 1 #Yrs smoked (if former smoker): 50 Alcohol Intake: never Alcohol Intake Frequency:: other Substance Use Type: denies use Occupational Status: retired, disabled Housing: house Household Members: spouse Family Hx:: Asthma, Cancer, Coronary Artery Disease, Hyperlipidemia, Hypertension ROS Obtained: Yes Systems reviewed as appropriate & no additional complaints - Constitutional Constitutional: Reports fatigue, Denies fever(s) - Eyes Eyes: Denies change in vision - ENT Ears, Nose, Mouth, and Throat: Denies epistaxis - Cardiovascular Cardiovascular: Denies chest pain - Respiratory Respiratory: Yes dyspnea, Yes dyspnea on exertion - Gastrointestinal Gastrointestingal: Denies: abdominal pain - Musculoskeletal Musculoskeletal: Denies neck pain - Integumentary/Breasts Skin/Breast: Denies rash - Neurologic Neurologic: Denies headache(s) Physical Exam - General General appearance: alert - Head Head exam: atraumatic - Eye Eye exam: Present: PERRL, EOMI - Neck Neck exam: Present: normal inspection - Chest Chest inspection: Present: normal inspection - Respiratory Respiratory exam: Present: wheezes. Absent: stridor - Cardiovascular Cardiovascular exam: Present: regular rate, normal rhythm - Abdominal Exam Abdominal exam: Present: soft. Absent: tenderness - Extremities Exam Extremities exam: Absent: tenderness, pedal edema - Back Exam Back exam: Absent: vertebral tenderness - Neurological Exam Neurological exam: Present: alert, oriented X3 - Psychiatric Psychiatric exam: Present: normal affect, normal mood - Skin Skin exam: Present: warm, dry
--- NOTE | 2018-10-10 16:31 | History & Physical Report ---
*Admission Date: 10/10/18 *Chief complaint: Shortness of breath *History of present illness: 77-year-old male with recent hospitalization for acute on chronic diastolic heart failure along with COPD exacerbation presented to the emergency department with worsening shortness of breath and edema over the last 1 to 2 days. His cough was producing brown sputum. He appeared in significant respiratory distress on presentation to the emergency department and was immediately placed on BiPAP. Blood gas revealed hypoxemia. It was felt the patient had right lower lobe pneumonia so he was started on Levaquin. Patient was subsequently started on intravenous steroids as well as breathing treatments and Lasix. [facility] History I have reviewed the patient's past medical history: Yes Medical History: Reports:: Arrhythmia, Asthma, Atrial Fibrillation, Congestive Heart Failure, Chronic Obstructive Pulmonary Disease (COPD), Home Oxygen, Hypertension, Internal Pacemaker, Lung Disease, Kidney Stones, Myocardial Infarction Denies:: Cancer, Diabetes Mellitus Type 1, Diabetes Mellitus Type 2, MRSA *Have you ever received a pneumonia vaccine?: No *Have you received a flu vaccine this season?: No Other Medical History: Reports: Arthritis Laterality Cases: Right: Arthroscopy Knee, Bilateral: Other Other Surgeries: Yes: Hernia Repair (X2), Pacemaker, Other (shoulder surgery) Amputation: No Fractures: No - *Social History Smoking Status: Former smoker Tobacco Type: cigarettes # Packs/Day (cigarettes): 1 #Yrs smoked (if former smoker): 50 Alcohol Intake: never Alcohol Intake Frequency:: other Substance Use Type: denies use *Occupational Status:: retired, disabled Housing: house Household Members: spouse Family Hx:: Asthma, Cancer, Coronary Artery Disease, Hyperlipidemia, Hyperte nsion Review of Systems - Constitutional Denies body ache(s), Denies chills, Denies fatigue, Denies fever(s), Denies night sweats - *Cardiovascular Denies chest pain, Denies chest pain at rest - *Respiratory Reports change in phlegm color, Reports chest congestion, Reports cough, Reports shortness of breath, Reports shortness of breath with activity, Reports wheezing - *Gastrointestinal Denies abdominal pain, Denies belching, Denies bloating - *Neurologic Denies headache(s) Meds Home Medications Medication Instructions Recorded Confirmed Type Aspirin [Aspirin 81mg EC Tab] 81 mg PO DAILY 09/29/17 10/10/18 History Tamsulosin HCl [Flomax 0.4mg 0.4 mg PO HS 05/05/18 10/10/18 History capsule] Fluticasone/Umeclidin/Vilanter 1 puff IH DAILY 05/07/18 10/10/18 History [[place] Ellipta 100-62.5-25] Spironolactone 25 mg PO DAILY 06/26/18 10/10/18 History Potassium Chloride 20 meq PO DAILY 08/21/18 10/10/18 History predniSONE [Deltasone 20mg 10 mg PO DAILY 09/23/18 10/10/18 History tablet] Hydrocod/Acet 5/325 mg [[place] 1 tab PO Q8HP PRN #0 tab 09/27/18 10/10/18 Rx 5/325mg tablet] Azithromycin [Zithromax 250mg 250 mg PO DAILY 10/10/18 10/10/18 History tab] Furosemide [Lasix 40mg tablet] 40 mg PO Q6H 10/10/18 10/10/18 History Omeprazole [Omeprazole 20mg 20 mg PO DAILY 10/10/18 10/10/18 History Capsule] diphenhydrAMINE HCl 25 mg PO Q8HP PRN 10/10/18 10/10/18 History [Diphenhydramine HCl] Allergies Allergy/AdvReac Type Severity Reaction Status Date / Time No Known Allergies Allergy Verified 10/10/18 13:35 Exam Vital signs and Labs for Last 24 Hours: Temp Pulse Resp BP Pulse Ox 98.1 F 80 16 120/85 97 10/10/18 13:03 10/10/18 14:39 10/10/18 14:23 10/10/18 14:23 10/10/18 14:39 Laboratory Results - last 24 hr 10/10/18 13:00: WBC 19.3 H, RBC 5.72, Hgb 15.0, Hct 48.6, MCV 84.9, MCH 26.2 L, MCHC 30.9 L, RDW 17.2, Plt Count 169, MPV 9.0, Neut % (Auto) 85.7 H, Lymph % (Auto) 9.9 L, [place] % (Auto) 3.0, Eos % (Auto) 1.0, Baso % (Auto) 0.4, Neut # (Auto) 16.6 H, Lymph # (Auto) 1.9, [place] # (Auto) 0.6, Eos # (Auto) 0.2, Baso # (Auto) 0.1, Total Counted 100, Neutrophils % (Manual) 88 H, Lymphocytes % (Manual) 10, Monocytes % (Manual) 2, Platelet Estimate Normal, Hypochromasia 2+ 10/10/18 13:00: Sodium 137, Potassium 3.6, Chloride 93 L, Carbon Dioxide 36 H, Anion Gap 11.6, BUN 17, Creatinine 1.44 H, Estimated Creat Clear 59, Estimated GFR 48 L, Est GFR ( Amer) 58 L, Glucose 172 H, Calcium 8.4 L, Total Bilirubin 0.6, AST 11 L, ALT 21, Alkaline Phosphatase 97, Troponin I < 0.02, Total Protein 6.9, Albumin 2.7 L, Globulin 4.2 H, Albumin/Globulin Ratio 0.6 L 10/10/18 13:00: D-Dimer 395 10/10/18 13:00: B-Natriuretic Peptide 45 10/10/18 13:12: Specimen Source R brachial, O2 % 2lpm, ABG pH 7.46 H, ABG pCO2 50.6 H, ABG pO2 65.6 L, ABG HCO3 35.0 H, ABG Total CO2 36.6 H, ABG O2 Saturation 93, ABG Base Excess 11.2 H 10/10/18 13:44: POC Glucose 186 H 10/10/18 14:06: Lactate 2.4 H I & O for Last 24 hours: Intake & Output 10/08/18 10/09/18 10/10/18 10/11/18 11:59 11:59 11:59 11:59 Output Total 200 / 200 Balance -200 / -200 Weight 210 lb - Constitutional mild distress, moderate distress, chronically ill appearing, disheveled, cooperative - *Routine HEENT Exam Head: Present: normocephalic ENT: Present: mucous membranes moist - *Routine Respiratory Exam Present: respiratory distress, rhonchi, wheezes, crackles, distant breath sounds - *Routine Cardiovascular Exam Present: RRR, Normal S1, Normal S2 - *Routine Abdominal Exam Present: soft, distended - *Routine Extremities Exam Present: edema (r>l, 2+to proximal tibia on right) - *Routine Neurological Exam Present: CN II-XII intact. Absent: sensory deficit, motor deficit Assessment and Plan (1) Congestive heart failure Current visit: Yes Status: Acute Qualifiers: Heart failure type: other Qualified Code(s): I50.9 - Heart failure, unspecified Category: Medical Code(s): I50.9 - Heart failure, unspecified (2) Pneumonia Current visit: Yes Status: Suspected Qualifiers: Pneumonia type: due to unspecified organism Laterality: unspecified laterality Lung location: unspecified part of lung Qualified Code(s): J18.9 - Pneumonia, unspecified organism Category: Medical Code(s): J18.9 - Pneumonia, unspecified organism (3) Acute and chronic respiratory failure Current visit: No Status: Acute Category: Medical Code(s): J96.20 - Acute and chronic respiratory failure, unspecified whether with hypoxia or hypercapnia (4) Acute exacerbation of chronic obstructive airways disease Current visit: No Status: Acute Category: Medical Code(s): J44.1 - Chronic obstructive pulmonary disease with (acute) exacerbation (5) Acute on chronic diastolic heart failure Current visit: No Status: Acute Category: Medical Code(s): I50.33 - Acute on chronic diastolic (congestive) heart failure - Assessment and plan all Dx Assessment and Plan for all problems:: 1. Diurese with furosemide. Monitor BP, weigh daily including on arrival to floor 2. Start Solu-medrol 60mg q8, duonebs q4, bipap as needed 3. Levaquin and Vanc for supsected pneumonia 4. fluid restrictions of 1200 ml
[2018-10-11 06:27] LABS: Hematocrit 43.4 % (42.0-52.0); Hemoglobin 13.9 g/dL (14.1-18.0); Lymphocytes # 0.7 K/mm3 (0.7-4.5); Lymphocytes % 4.2 % (10-50); Mean Corpuscular HGB Conc 32.1 g/dL (31.8-35.4); Mean Corpuscular Hemoglobin 26.5 pg (27.0-31.2); Mean Corpuscular Volume 82.8 fl (80-94); Mean Platelet Volume 8.5 fl (7.4-10.4); Monocytes # 0.3 K/mm3 (0.1-1.0); Monocytes % 1.7 % (1.7-9.3); Neutrophils # 14.8 K/mm3 (1.8-7.8); Neutrophils % 93.9 % (37.0-80.0); Platelet Count 142 K/mm3 (142-424); Red Blood Count 5.24 M/mm3 (4.60-6.20); Red Cell Distribution Width 17.3 % (11.5-17.5); White Blood Count 15.8 K/mm3 (4.8-10.8)
[2018-10-11 06:41] LABS: Calcium 8.2 mg/dL (8.5-10.1)
--- NOTE | 2018-10-11 07:11 | Progress Note ---
Internal Medicine - PN: Subj *Date: 10/11/18 *Time: 07:09 Interval history: Patient states he feels better this morning. He has been weaned to 2 L of oxygen via nasal cannula. He reports urinating twice overnight in response to the Lasix. DuoNeb's give him about "4 to 5 minutes" relief of shortness of breath. Exam Vital signs and Labs for Last 24 Hours: Temp Pulse Resp BP Pulse Ox 97.7 F 80 24 113/65 93 L 10/11/18 04:00 10/11/18 06:45 10/11/18 04:00 10/11/18 04:00 10/11/18 06:45 Laboratory Results - last 24 hr 10/10/18 13:00: WBC 19.3 H, RBC 5.72, Hgb 15.0, Hct 48.6, MCV 84.9, MCH 26.2 L, MCHC 30.9 L, RDW 17.2, Plt Count 169, MPV 9.0, Neut % (Auto) 85.7 H, Lymph % (Auto) 9.9 L, [place] % (Auto) 3.0, Eos % (Auto) 1.0, Baso % (Auto) 0.4, Neut # (Auto) 16.6 H, Lymph # (Auto) 1.9, [place] # (Auto) 0.6, Eos # (Auto) 0.2, Baso # (Auto) 0.1, Total Counted 100, Neutrophils % (Manual) 88 H, Lymphocytes % (Manual) 10, Monocytes % (Manual) 2, Platelet Estimate Normal, Hypochromasia 2+ 10/10/18 13:00: Sodium 137, Potassium 3.6, Chloride 93 L, Carbon Dioxide 36 H, Anion Gap 11.6, BUN 17, Creatinine 1.44 H, Estimated Creat Clear 59, Estimated GFR 48 L, Est GFR ( Amer) 58 L, Glucose 172 H, Calcium 8.4 L, Total Bilirubin 0.6, AST 11 L, ALT 21, Alkaline Phosphatase 97, Troponin I < 0.02, Total Protein 6.9, Albumin 2.7 L, Globulin 4.2 H, Albumin/Globulin Ratio 0.6 L 10/10/18 13:00: D-Dimer 395 10/10/18 13:00: B-Natriuretic Peptide 45 10/10/18 13:12: Specimen Source R brachial, O2 % 2lpm, ABG pH 7.46 H, ABG pCO2 50.6 H, ABG pO2 65.6 L, ABG HCO3 35.0 H, ABG Total CO2 36.6 H, ABG O2 Saturation 93, ABG Base Excess 11.2 H 10/10/18 13:44: POC Glucose 186 H 10/10/18 14:06: Lactate 2.4 H 10/10/18 18:25: Lactate 3.1 H 10/10/18 20:33: Lactate 3.9 H 10/11/18 01:48: POC Glucose 193 H 10/11/18 05:30: WBC 15.8 H, RBC 5.24, Hgb 13.9 L, Hct 43.4, MCV 82.8, MCH 26.5 L , MCHC 32.1, RDW 17.3, Plt Count 142, MPV 8.5, Neut % (Auto) 93.9 H, Lymph % (Auto) 4.2 L, [place] % (Auto) 1.7, Eos % (Auto) 0.0 L, Baso % (Auto) 0.0 L, Neut # (Auto) 14.8 H, Lymph # (Auto) 0.7, [place] # (Auto) 0.3, Eos # (Auto) 0.0, Baso # (Auto) 0.0 10/11/18 05:30: Sodium 136, Potassium 4.0, Chloride 96 L, Carbon Dioxide 32, Anion Gap 12.0, BUN 26 H D, Creatinine 1.57 H, Estimated Creat Clear 56, Estimated GFR 43 L, Est GFR ( Amer) 52 L, Glucose 203 H, Calcium 8.2 L 10/11/18 06:08: POC Glucose 187 H I & O for Last 24 hours: Intake & Output 10/08/18 10/09/18 10/10/18 10/11/18 11:59 11:59 11:59 11:59 Intake Total 650 / 650 Output Total 875 / 875 Balance -225 / -225 Weight 218 lb 4 oz Narrative: He looks comfortable. Lungs have expiratory wheezes with rhonchi. Rales that were present in the right base yesterday afternoon have improved. Heart has a regular rate and rhythm. Abdomen is soft and protuberant. Patient has 1+ edema in the right lower extremity (this is improvement since yesterday) Assessment and Plan (1) Congestive heart failure Current visit: Yes Status: Acute Qualifiers: Heart failure type: other Qualified Code(s): I50.9 - Heart failure, unspecified Category: Medical Code(s): I50.9 - Heart failure, unspecified (2) Pneumonia Current visit: Yes Status: Suspected Qualifiers: Pneumonia type: due to unspecified organism Laterality: unspecified laterality Lung location: unspecified part of lung Qualified Code(s): J18.9 - Pneumonia, unspecified organism Category: Medical Code(s): J18.9 - Pneumonia, unspecified organism (3) Acute and chronic respiratory failure Current visit: No Status: Acute Category: Medical Code(s): J96.20 - Acute and chronic respiratory failure, unspecified whether with hypoxia or hypercapnia (4) Acute exacerbation of chronic obstructive airways disease Current visit: No Status: Acute Category: Medical Code(s): J44.1 - Chronic obstructive pulmonary disease with (acute) exacerbation (5) Acute on chronic diastolic heart failure Current visit: No Status: Acute Category: Medical Code(s): I50.33 - Acute on chronic diastolic (congestive) heart failure - Assessment and plan all Dx Assessment and Plan for all problems:: 1. Continue to diurese with intravenous Lasix 2. Continue antibiotics and steroids at this time although I do feel like the patient's primary problem is congestive heart failure. 3. Encourage ambulation today
--- NOTE | 2018-10-11 07:34 | Pharmacy Consult Notes ---
[facility] Pharmacy VTE Monitoring - Patient Demographics Admission date: 10/10/18 Report Date: 10/11/18 Time: 07:34 Allergies/Adverse Reactions: Patient Allergies No Known Allergies Allergy (Verified 10/10/18 13:35) Height: 1.83 m Weight: 98.997 kg Patient Problems: Current Active Problems (Updated 10/11/18 @ 07:08 by Sharan Tariq MD) Congestive heart failure (Acute) Pneumonia (Acute) - VTE Risk Labs: VTE Related Lab Results Hgb 13.9 g/dL (14.1-18.0) L 10/11/18 05:30 Hct 43.4 % (42.0-52.0) 10/11/18 05:30 Plt Count 142 K/mm3 (142-424) 10/11/18 05:30 BUN 26 mg/dL (7-18) H D 10/11/18 05:30 Creatinine 1.57 mg/dL (0.70-1.30) H 10/11/18 05:30 Estimated Creat Clear 56 mL/min (50-200) 10/11/18 05:30 Was VTE Risk Assessment Performed: Yes VTE Score: 9 VTE Risk Level: Moderate Risk - Prophylaxis VTE Prophylaxis Ordered?: Yes Types of VTE Prophylaxis: TEDS Knee High Location of Applied Device: Bilateral Lower Extremeties - VTE Diagnosis Confirmed Treatment or plan recommended: Continue Current Treatment
--- NOTE | 2018-10-11 08:08 | Pharmacy Consult Notes ---
- Pharmacy Consult Date: 10/11/18 Time: 08:07 Referring provider: DR. BLANCO Reason for Consult:: VANCOMYCIN DOSING Allergies and ADEs:: Allergies Allergy/AdvReac Type Severity Reaction Status Date / Time No Known Allergies Allergy Verified 10/10/18 13:35 Home Medications:: Home Medications Medication Instructions Recorded Confirmed Type Aspirin [Aspirin 81mg EC Tab] 81 mg PO DAILY 09/29/17 10/10/18 History Tamsulosin HCl [Flomax 0.4mg 0.4 mg PO HS 05/05/18 10/10/18 History capsule] Fluticasone/Umeclidin/Vilanter 1 puff IH DAILY 05/07/18 10/10/18 History [Trelegy Ellipta 100-62.5-25] Spironolactone 25 mg PO DAILY 06/26/18 10/10/18 History Potassium Chloride 20 meq PO DAILY 08/21/18 10/10/18 History predniSONE [Deltasone 20mg 10 mg PO DAILY 09/23/18 10/10/18 History tablet] Hydrocod/Acet 5/325 mg [[place] 1 tab PO Q8HP PRN #0 tab 09/27/18 10/10/18 Rx 5/325mg tablet] Azithromycin [Zithromax 250mg 250 mg PO DAILY 10/10/18 10/10/18 History tab] Furosemide [Lasix 40mg tablet] 40 mg PO Q6H 10/10/18 10/10/18 History Omeprazole [Omeprazole 20mg 20 mg PO DAILY 10/10/18 10/10/18 History Capsule] diphenhydrAMINE HCl 25 mg PO Q8HP PRN 10/10/18 10/10/18 History [Diphenhydramine HCl] Height: 1.83 m Weight: 98.997 kg Laboratory Results:: Laboratory Results - last 24 hr 10/10/18 13:00: WBC 19.3 H, RBC 5.72, Hgb 15.0, Hct 48.6, MCV 84.9, MCH 26.2 L, MCHC 30.9 L, RDW 17.2, Plt Count 169, MPV 9.0, Neut % (Auto) 85.7 H, Lymph % (Auto) 9.9 L, [place] % (Auto) 3.0, Eos % (Auto) 1.0, Baso % (Auto) 0.4, Neut # (Auto) 16.6 H, Lymph # (Auto) 1.9, [place] # (Auto) 0.6, Eos # (Auto) 0.2, Baso # (Auto) 0.1, Total Counted 100, Neutrophils % (Manual) 88 H, Lymphocytes % (Manual) 10, Monocytes % (Manual) 2, Platelet Estimate Normal, Hypochromasia 2+ 10/10/18 13:00: Sodium 137, Potassium 3.6, Chloride 93 L, Carbon Dioxide 36 H, Anion Gap 11.6, BUN 17, Creatinine 1.44 H, Estimated Creat Clear 59, Estimated GFR 48 L, Est GFR ( Amer) 58 L, Glucose 172 H, Calcium 8.4 L, Total Bilirubin 0.6, AST 11 L, ALT 21, Alkaline Phosphatase 97, Troponin I < 0.02, Total Protein 6.9, Albumin 2.7 L, Globulin 4.2 H, Albumin/Globulin Ratio 0.6 L 10/10/18 13:00: D-Dimer 395 10/10/18 13:00: B-Natriuretic Peptide 45 10/10/18 13:12: Specimen Source R brachial, O2 % 2lpm, ABG pH 7.46 H, ABG pCO2 50.6 H, ABG pO2 65.6 L, ABG HCO3 35.0 H, ABG Total CO2 36.6 H, ABG O2 Saturation 93, ABG Base Excess 11.2 H 10/10/18 13:44: POC Glucose 186 H 10/10/18 14:06: Lactate 2.4 H 10/10/18 18:25: Lactate 3.1 H 10/10/18 20:33: Lactate 3.9 H 10/11/18 01:48: POC Glucose 193 H 10/11/18 05:30: WBC 15.8 H, RBC 5.24, Hgb 13.9 L, Hct 43.4, MCV 82.8, MCH 26.5 L , MCHC 32.1, RDW 17.3, Plt Count 142, MPV 8.5, Neut % (Auto) 93.9 H, Lymph % (Auto) 4.2 L, [place] % (Auto) 1.7, Eos % (Auto) 0.0 L, Baso % (Auto) 0.0 L, Neut # (Auto) 14.8 H, Lymph # (Auto) 0.7, [place] # (Auto) 0.3, Eos # (Auto) 0.0, Baso # (Auto) 0.0 10/11/18 05:30: Sodium 136, Potassium 4.0, Chloride 96 L, Carbon Dioxide 32, Anion Gap 12.0, BUN 26 H D, Creatinine 1.57 H, Estimated Creat Clear 56, Estimated GFR 43 L, Est GFR ( Amer) 52 L, Glucose 203 H, Calcium 8.2 L 10/11/18 06:08: POC Glucose 187 H Medical History: Reports:: Arrhythmia, Asthma, Atrial Fibrillation, Congestive Heart Failure, Chronic Obstructive Pulmonary Disease (COPD), Home Oxygen, Hypertension, Internal Pacemaker, Lung Disease, Kidney Stones, Myocardial Infarction Denies:: Cancer, Diabetes Mellitus Type 1, Diabetes Mellitus Type 2, MRSA Assessment and Plan (1) Congestive heart failure Current visit: Yes Status: Acute Qualifiers: Heart failure type: other Qualified Code(s): I50.9 - Heart failure, unspecified Category: Medical Code(s): I50.9 - Heart failure, unspecified (2) Pneumonia Current visit: Yes Status: Suspected Qualifiers: Pneumonia type: due to unspecified organism Laterality: unspecified laterality Lung location: unspecified part of lung Qualified Code(s): J18.9 - Pneumonia, unspecified organism Category: Medical Code(s): J18.9 - Pneumonia, unspecified organism (3) Acute and chronic respiratory failure Current visit: No Status: Acute Category: Medical Code(s): J96.20 - Acute and chronic respiratory failure, unspecified whether with hypoxia or hypercapnia (4) Acute exacerbation of chronic obstructive airways disease Current visit: No Status: Acute Category: Medical Code(s): J44.1 - Chronic obstructive pulmonary disease with (acute) exacerbation (5) Acute on chronic diastolic heart failure Current visit: No Status: Acute Category: Medical Code(s): I50.33 - Acute on chronic diastolic (congestive) heart failure - Assessment and plan all Dx Assessment and Plan for all problems:: BASED ON PATIENT FACTORS, RECOMMEND VANCOMYCIN 2 GM IV Q24H. PHARMACY WILL FOLLOW DAILY AND ADJUST APPROPRIATE.
[2018-10-11 08:48] LABS: Hypochromasia 1+; Lymphocytes % 2 % (10-50); Monocytes % 2 % (2-9); Neutrophils % 96 % (42-76); Total Cells Counted 100
[2018-10-12 07:23] LABS: Basophils % 0.1 % (0.1-2.0); Hematocrit 44.6 % (42.0-52.0); Lymphocytes # 0.8 K/mm3 (0.7-4.5); Lymphocytes % 4.3 % (10-50); Mean Corpuscular HGB Conc 31.5 g/dL (31.8-35.4); Mean Corpuscular Hemoglobin 26.4 pg (27.0-31.2); Mean Corpuscular Volume 83.9 fl (80-94); Mean Platelet Volume 8.3 fl (7.4-10.4); Monocytes # 0.6 K/mm3 (0.1-1.0); Neutrophils # 17.5 K/mm3 (1.8-7.8); Neutrophils % 92.6 % (37.0-80.0); Platelet Count 158 K/mm3 (142-424); Red Blood Count 5.31 M/mm3 (4.60-6.20); Red Cell Distribution Width 17.4 % (11.5-17.5); White Blood Count 18.9 K/mm3 (4.8-10.8)
--- NOTE | 2018-10-12 07:27 | Discharge Summary ---
General - General Admission date:: 10/10/18 Discharge date: 10/12/18 HPI HPI: 77-year-old male with recent hospitalization for acute on chronic diastolic heart failure along with COPD exacerbation presented to the emergency department with worsening shortness of breath and edema over the last 1 to 2 days. His cough was producing brown sputum. He appeared in significant respiratory distress on presentation to the emergency department and was immediately placed on BiPAP. Blood gas revealed hypoxemia. It was felt the patient had right lower lobe pneumonia so he was started on Levaquin. Patient was subsequently started on intravenous steroids as well as breathing treatments and Lasix. Hospital Course Hospital Course: Patient was admitted to the hospital and placed on Levaquin and vancomycin to tr eat possible pneumonia of the right lower lobe. However once again patient's presentation with similar to his last hospitalization for COPD exacerbation and acute on chronic diastolic heart failure. Patient was given IV Lasix 40 mg twice daily which resulted in negative fluid balance daily during hospitalization. Accuracy of weights came into question however due to the wide ranging weights obtained [facility] However with diuresis patient felt better in less than 24 hours. His lung exam remained abnormal with rhonchi and wheezing. He got very little relief from use of aerosols. He was maintained on steroids in addition to the antibiotics. Within 48 hours patient felt like he had returned to baseline and he was discharged to home. Objective Vital signs: Temp Pulse Resp BP Pulse Ox 97.7 F 78 24 132/63 98 10/12/18 03:44 10/12/18 06:34 10/12/18 03:44 10/12/18 03:44 10/12/18 06:34 no acute distress - *Routine Respiratory Exam Present: prolonged expiratory phase, rales, rhonchi, wheezes - *Routine Cardiovascular Exam Present: RRR Results Labs on day of discharge: Labs from last 24 hours 10/12/18 10/11/18 10/11/18 04:08 23:49 14:09 Total Counted Neutrophils % (Manual) Lymphocytes % (Manual) Monocytes % (Manual) Platelet Estimate Hypochromasia POC Glucose 147 H 182 H 203 H 10/11/18 05:30 Total Counted 100 Neutrophils % (Manual) 96 H Lymphocytes % (Manual) 2 L Monocytes % (Manual) 2 Platelet Estimate Normal Hypochromasia 1+ POC Glucose Preliminary micro results at discharge 10/11/18 09:25 Sputum Culture - Preliminary Sputum - Expectorated Sputum DS: Diagnosis - Discharge Diagnosis (1) Congestive heart failure Status: Acute (2) Pneumonia Status: Suspected (3) Acute and chronic respiratory failure Status: Acute (4) Acute exacerbation of chronic obstructive airways disease Status: Acute (5) Acute on chronic diastolic heart failure Status: Acute Discharge Plan - Patient Discharge Instructions ACTIVITY: Continue current activity DIET: continue same diet Patient Instructions: Congestive Heart Failure (Alternative Therapy), DI for Pneumonia -- Adult, Low-Sodium Diet - Follow up Plan Follow up with: Sharan Tariq MD [Staff Physician] - 10/15/18 1:00 pm Disposition: Home, Self-[facility] Medications: Home Medications Medication Instructions Recorded Confirmed Type Aspirin [Aspirin 81mg EC Tab] 81 mg PO DAILY 09/29/17 10/10/18 History Tamsulosin HCl [Flomax 0.4mg 0.4 mg PO HS 05/05/18 10/10/18 History capsule] Fluticasone/Umeclidin/Vilanter 1 puff IH DAILY 05/07/18 10/10/18 History [Trelegy Ellipta 100-62.5-25] Spironolactone 25 mg PO DAILY 06/26/18 10/10/18 History Potassium Chloride 20 meq PO DAILY 08/21/18 10/10/18 History predniSONE [Deltasone 20mg 10 mg PO DAILY 09/23/18 10/10/18 History tablet] Azithromycin [Zithromax 250mg 250 mg PO MOTUWETHFR 10/10/18 10/11/18 History tab] Omeprazole [Omeprazole 20mg 20 mg PO DAILY 10/10/18 10/10/18 History Capsule] diphenhydrAMINE HCl 50 mg PO Q8HP PRN 10/10/18 10/11/18 History [Diphenhydramine HCl] Furosemide [Lasix 40mg tablet] 40 mg PO BIDL #0 10/12/18 10/10/18 Rx Hydrocod/Acet 5/325 mg [[place] 1 tab PO Q8HP PRN #90 tab 10/12/18 Rx 5/325mg tablet] Propranolol HCl 10 mg PO BID #60 tab 10/12/18 Rx Prescriptions/Medication Reconciliation: New Propranolol HCl 10 mg PO BID #60 tab Continued Aspirin [Aspirin 81mg EC Tab] 81 mg PO DAILY Fluticasone/Umeclidin/Vilanter [Trelegy Ellipta 100-62.5-25] 1 puff IH DAILY Spironolactone 25 mg PO DAILY Potassium Chloride 20 meq PO DAILY diphenhydrAMINE HCl [Diphenhydramine HCl] 50 mg PO Q8HP PRN PRN Reason: Insomnia Omeprazole [Omeprazole 20mg Capsule] 20 mg PO DAILY Hydrocod/Acet 5/325 mg [[place] 5/325mg tablet] 1 tab PO Q8HP PRN #90 tab PRN Reason: Mild To Moderate Pain Tamsulosin HCl [Flomax 0.4mg capsule] 0.4 mg PO HS predniSONE [Deltasone 20mg tablet] 10 mg PO DAILY Azithromycin [Zithromax 250mg tab] 250 mg PO MOTUWETHFR Changed Furosemide [Lasix 40mg tablet] 40 mg PO BIDL #0
[2018-10-12 07:44] LABS: Calcium 8.5 mg/dL (8.5-10.1)
[2018-10-12 08:19] LABS: Lymphocytes % 5 % (10-50); Monocytes % 2 % (2-9); Neutrophils % 90 % (42-76); Total Cells Counted 100
== END 2018-10-12 08:39 | disposition home or self-care (01) ==
LOC: ER 13:09 → 2ND 13:09 → OBSVTOIN 16:27 → INTOOBSV 16:27 → 2ND 16:28
PROVIDERS: ADMIT Family Medicine; ATTEND Family Medicine
CPT/HCPCS: 36415; 71010; 71045; 80048; 80053; 82803; 82962; 83605; 83880; 84484; 85007; 85025; 85378; 87040; 87070; 87077; 87205; 93005; 94640; 94761; 96367; 96374; 99285; G0378; J1956; J3370

== ENCOUNTER 2018-11-16 11:22 | Emergency (ER) | payer OTHER, SELFPAY ==
[2018-11-16] VITALS (11 sets, daily range): BP systolic 83–126; BP diastolic 49–71; PULSE 61–87; RESP 20–24; TEMP 36.5–36.6; O2SAT 93–96; BMI 35.9
--- NOTE | 2018-11-16 11:18 | XR_ITS ---
XR chest portable HISTORY: Cough ITS.REASON: cough ORDERING PHYSICIAN: Azael Wiseman MD PATIENT AGE: 77 years COMPARISON: 11/04/2018 FINDINGS: Normal heart size. Bipolar pacemaker in place. Chronic changes are present in the lower lobes with chronic pleural thickening and interstitial fibrotic changes. One cannot exclude the possibility of superimposed infiltrate in the lung bases based on this exam however, there is been no significant change compared to the previous study nor previous exam of 05/05/2018. IMPRESSION: Chronic pleural thickening and interstitial lung disease..
--- NOTE | 2018-11-16 11:20 | HMH.EDGENADL ---
ED Disposition Clinical Impression: Pneumonia Qualifiers: Pneumonia type: due to unspecified organism Laterality: left Lung location: lower lobe of lung Qualified Code(s): J18.1 - Lobar pneumonia, unspecified organism Disposition: Home, Self-Care Condition on Discharge: Fair Instructions: Pneumonia-Adult Prescriptions: Albuterol Sulfate [Proventil-HFA 90mcg/puff Inh] 1 - 2 puffs IH Q6HP PRN #1 inh PRN Reason: Cough levoFLOXacin [Levaquin 500mg tab] 500 mg PO DAILY #7 tab methylPREDNISolone [Medrol 4mg tab] 4 mg PO DIRECTED #21 tab Referrals: Sharan Tariq MD [Primary Care Provider] - - Critical Care Critical Care Time: No Attestation: On , the high probability of a clinically significant, sudden or life threatening deterioration of the following system(s) required my full and direct attention, intervention and personal management. The time I documented below is in addition to time spent performing reported procedures but includes the following listed in this critical care notation. Medical Decision Making - Medical Records Medical records reviewed: Yes: I reviewed the patient's medical records. - Huber Inquiry Pt receiving controlled substance: Yes Hub[place] was queried for this patient: No Reason not queried -: Emergent pt cond-no time Risks and benefits of using a controlled substance: were discussed with pt by me Vital Signs: 11/16/18 11:14 11/16/18 11:43 11/16/18 12:25 Temperature 97.7 F Temperature Source Oral Pulse Rate 75 Pulse Rate [Right Brachial] 61 76 Respiratory Rate 24 Blood Pressure [Right Arm] 113/66 126/64 Blood Pressure Mean [Right Arm] 81 84 Blood Pressure Source [Right Arm] Automatic Cuff Blood Pressure Position [Right Arm] Sitting 02 Sat by Pulse Oximetry 94 L 93 L 93 L Oxygen Delivery Method Room Air Room Air 11/16/18 13:00 11/16/18 13:30 11/16/18 14:00 Temperature Temperature Source Pulse Rate Pulse Rate [Right Brachial] 80 80 80 Respiratory Rate Blood Pressure [Right Arm] 103/66 L 114/71 100/63 L Blood Pressure Mean [Right Arm] 78 85 75 Blood Pressure Source [Right Arm] Blood Pressure Position [Right Arm] 02 Sat by Pulse Oximetry 93 L 94 L 94 L Oxygen Delivery Method 11/16/18 14:15 06/01/19 14:48 Temperature Temperature Source Pulse Rate Pulse Rate [Right Brachial] 71 80 Respiratory Rate Blood Pressure [Right Arm] 83/49 L 111/65 Blood Pressure Mean [Right Arm] 60 80 Blood Pressure Source [Right Arm] Blood Pressure Position [Right Arm] 02 Sat by Pulse Oximetry 93 L 94 L Oxygen Delivery Method - Lab Data Lab results reviewed: Yes: I reviewed the patient's lab results. Lab Results 11/16/18 11:40: WBC 24.9 H*, RBC 6.26 H, Hgb 17.2, Hct 51.7, MCV 82.7, MCH 27.5, MCHC 33.2, RDW 17.6 H, Plt Count 194, MPV 9.0, Neut % (Auto) 86.9 H, Lymph % (Auto) 7.2 L, [place] % (Auto) 5.2, Eos % (Auto) 0.4, Baso % (Auto) 0.3, Neut # (Auto) 21.6 H, Lymph # (Auto) 1.8, [place] # (Auto) 1.3 H, Eos # (Auto) 0.1, Baso # (Auto) 0.1, Total Counted 100, Neutrophils % (Manual) 86 H, Lymphocytes % (Manual) 8 L, Atypical Lymphs % 3.0, Monocytes % (Manual) 2, Eosinophils % (Manual) 1, Platelet Estimate Normal, RBC Morphology Normal 11/16/18 11:40: Lactate 2.0 11/16/18 11:41: Urine Color Yellow, Urine Appearance Clear, Urine pH 6.0, Ur Specific [place] 1.010, Urine Protein Negative, Urine Glucose (UA) Negative, Urine Ketones Negative, Urine Blood Negative, Urine Nitrate Negative, Urine Bilirubin Negative, Urine Urobilinogen 0.2, Ur Leukocyte Esterase Trace, Urine RBC None, Urine WBC Occasional, Ur Squamous Epith Cells Occasional, Urine Bacteria Trace, Hyaline Casts Occasional 11/16/18 12:41: Sodium 126 L, Potassium 5.1, Chloride 90 L, Carbon Dioxide 29, Anion Gap 12.1, BUN 44 H, Creatinine 1.81 H, Estimated Creat Clear 59, Estimated GFR 37 L, Est GFR ( Amer) 44 L, Glucose 160 H, Calcium 8.1 L, Total Bilirubin 0.9, AST 11 L, ALT 21, [place]
--- NOTE | 2018-11-16 11:23 | ED_ITS ---
ED Disposition Clinical Impression: Pneumonia Qualifiers: Pneumonia type: due to unspecified organism Laterality: left Lung location: lower lobe of lung Qualified Code(s): J18.1 - Lobar pneumonia, unspecified organism Disposition: Home, Self-Care Condition on Discharge: Fair Instructions: Pneumonia-Adult Prescriptions: Albuterol Sulfate [Proventil-HFA 90mcg/puff Inh] 1 - 2 puffs IH Q6HP PRN #1 inh PRN Reason: Cough levoFLOXacin [Levaquin 500mg tab] 500 mg PO DAILY #7 tab methylPREDNISolone [Medrol 4mg tab] 4 mg PO DIRECTED #21 tab Referrals: Sharan Tariq MD [Primary Care Provider] - - Critical Care Critical Care Time: No Attestation: On , the high probability of a clinically significant, sudden or life threatening deterioration of the following system(s) required my full and direct attention, intervention and personal management. The time I documented below is in addition to time spent performing reported procedures but includes the following listed in this critical care notation. Medical Decision Making - Medical Records Medical records reviewed: Yes: I reviewed the patient's medical records. - Huber Inquiry Pt receiving controlled substance: Yes [place] was queried for this patient: No Reason not queried -: Emergent pt cond-no time Risks and benefits of using a controlled substance: were discussed with pt by me Vital Signs: 11/16/18 11:14 11/16/18 11:43 11/16/18 12:25 Temperature 97.7 F Temperature Source Oral Pulse Rate 75 Pulse Rate [Right Brachial] 61 76 Respiratory Rate 24 Blood Pressure [Right Arm] 113/66 126/64 Blood Pressure Mean [Right Arm] 81 84 Blood Pressure Source [Right Arm] Automatic Cuff Blood Pressure Position [Right Arm] Sitting 02 Sat by Pulse Oximetry 94 L 93 L 93 L Oxygen Delivery Method Room Air Room Air 11/16/18 13:00 11/16/18 13:30 11/16/18 14:00 Temperature Temperature Source Pulse Rate Pulse Rate [Right Brachial] 80 80 80 Respiratory Rate Blood Pressure [Right Arm] 103/66 L 114/71 100/63 L Blood Pressure Mean [Right Arm] 78 85 75 Blood Pressure Source [Right Arm] Blood Pressure Position [Right Arm] 02 Sat by Pulse Oximetry 93 L 94 L 94 L Oxygen Delivery Method 11/16/18 14:15 06/01/19 14:48 Temperature Temperature Source Pulse Rate Pulse Rate [Right Brachial] 71 80 Respiratory Rate Blood Pressure [Right Arm] 83/49 L 111/65 Blood Pressure Mean [Right Arm] 60 80 Blood Pressure Source [Right Arm] Blood Pressure Position [Right Arm] 02 Sat by Pulse Oximetry 93 L 94 L Oxygen Delivery Method - Lab Data Lab results reviewed: Yes: I reviewed the patient's lab results. Lab Results 11/16/18 11:40: WBC 24.9 H*, RBC 6.26 H, Hgb 17.2, Hct 51.7, MCV 82.7, MCH 27.5, MCHC 33.2, RDW 17.6 H, Plt Count 194, MPV 9.0, Neut % (Auto) 86.9 H, Lymph % (Auto) 7.2 L, [place] % (Auto) 5.2, Eos % (Auto) 0.4, Baso % (Auto) 0.3, Neut # (Auto) 21.6 H, Lymph # (Auto) 1.8, [place] # (Auto) 1.3 H, Eos # (Auto) 0.1, Baso # (Auto) 0.1, Total Counted 100, Neutrophils % (Manual) 86 H, Lymphocytes % (Manual) 8 L, Atypical Lymphs % 3.0, Monocytes % (Manual) 2, Eosinophils % (Manual) 1, [place]
[2018-11-16 12:06] LABS: Microscopic, Urine URINE MICROSCOPIC (MICROSCOPIC)
[2018-11-16 12:07] LABS: Basophils # 0.1 K/mm3 (0-0.2); Basophils % 0.3 % (0.1-2.0); Eosinophils # 0.1 K/mm3 (0.0-0.4); Eosinophils % 0.4 % (0.1-12.0); Hematocrit 51.7 % (42.0-52.0); Hemoglobin 17.2 g/dL (14.1-18.0); Lymphocytes # 1.8 K/mm3 (0.7-4.5); Lymphocytes % 7.2 % (10-50); Mean Corpuscular HGB Conc 33.2 g/dL (31.8-35.4); Mean Corpuscular Hemoglobin 27.5 pg (27.0-31.2); Mean Corpuscular Volume 82.7 fl (80-94); Monocytes # 1.3 K/mm3 (0.1-1.0); Monocytes % 5.2 % (1.7-9.3); Neutrophils # 21.6 K/mm3 (1.8-7.8); Neutrophils % 86.9 % (37.0-80.0); Platelet Count 194 K/mm3 (142-424); Red Blood Count 6.26 M/mm3 (4.60-6.20); Red Cell Distribution Width 17.6 % (11.5-17.5); White Blood Count 24.9 K/mm3 (4.8-10.8)
[2018-11-16 12:11] LABS: Appearance,Urine CLEAR (Clear); Bilirubin,Urine Negative (Negative); Blood, Urine Negative (Negative); Color,Urine YELLOW (Yellow); Glucose,Urine (UA) Negative (Negative); Ketones,Urine Negative (Negative); Leukocyte Esterase,Urine TRACE (Negative); Nitrate,Urine Negative (Negative); Protein,Urine Negative (Negative); Urobilinogen,Urine 0.2 EU/dl (0.2)
[2018-11-16 12:16] LABS: MANUAL DIFFERENTIAL MANUAL DIFFERENTIAL (MANUAL DIFF)
[2018-11-16 12:26] LABS: Bacteria,Urine Trace /lpf; Hyaline Casts,Urine Occasional #/lpf (0); Squamous Epithelial Cell,Urine Occasional #/hpf (0-5); WBC,Urine Occasional #/hpf (0-3)
[2018-11-16 12:27] LABS: Eosinophils % 1 % (0-3); Lymphocytes % 8 % (10-50); Monocytes % 2 % (2-9); Neutrophils % 86 % (42-76); Platelet Estimate Normal; RBC Morphology Normal; Total Cells Counted 100
[2018-11-16 13:11] LABS: Troponin I < 0.02 ng/ml (0.00-0.06)
[2018-11-16 13:13] LABS: Alanine Aminotransferase 21 U/L (12-78); Albumin Level 2.9 gm/dL (3.4-5.0); Albumin/Globulin Ratio 0.8 (1.1-1.8); Alkaline Phosphatase 96 U/L (46-116); Anion Gap 12.1 mEq/L (5-15); Aspartate Amino Transferase 11 U/L (15-37); Bilirubin,Total 0.9 mg/dL (0.2-1.0); Blood Urea Nitrogen 44 mg/dL (7-18); Calcium 8.1 mg/dL (8.5-10.1); Carbon Dioxide 29 mmol/L (21.0-32.0); Chloride 90 mmol/L (98-107); Creatinine Clearance Estimated 59 mL/min (50-200); Creatinine,Serum 1.81 mg/dL (0.70-1.30); Estimated Glomerular Filt Rate 37 ml/min (>60); GFR (African American) 44 ML/MIN (>60); Globulin 3.8 gm/dl (1.3-3.2); Glucose 160 mg/dL (74-106); Lipase 354 u/L (73-393); Potassium 5.1 mmoL/L (3.5-5.1); Sodium 126 mmol/L (136-145); Total Protein,Serum 6.7 gm/dL (6.4-8.2)
--- NOTE | 2018-11-16 14:17 | PC.NURSE ---
dr cardenas paged at [phone]. call returned at [phone]. Dr Wiseman requests to call back in a bit
--- NOTE | 2018-11-16 16:14 | PC.NURSE ---
John pt friend call and state that he was trying to get ahold of pts
== END 2018-11-16 16:46 | disposition home or self-care (01) ==
PROVIDERS: Emergency Provider Emergency Medicine Emergency Medical Services; PCP Family Medicine
DX: J18.1 Lobar pneumonia, unspecified organism (principal); Z99.81 Dependence on supplemental oxygen; J44.9 Chronic obstructive pulmonary disease, unspecified; I48.91 Unspecified atrial fibrillation; I10 Essential (primary) hypertension; Z95.0 Presence of cardiac pacemaker; Z87.891 Personal history of nicotine dependence
CPT/HCPCS: 36415; 71045; 80053; 81001; 83605; 83690; 84484; 85007; 85025; 87040; 93005; 96365; 96367; 96375; 99285; J1956

== ENCOUNTER 2018-11-28 00:50 | Inpatient (IN) ==
[2018-11-28 01:17] LABS: Microscopic, Urine URINE MICROSCOPIC (MICROSCOPIC)
[2018-11-28 01:18] LABS: Appearance,Urine CLEAR (Clear); Bilirubin,Urine Negative (Negative); Blood, Urine Negative (Negative); Color,Urine YELLOW (Yellow); Glucose,Urine (UA) Negative (Negative); Ketones,Urine Negative (Negative); Leukocyte Esterase,Urine Negative (Negative); Protein,Urine Negative (Negative); Specific Gravity, Urine 1.015 (1.005-1.030); Urobilinogen,Urine 0.2 EU/dl (0.2)
[2018-11-28 01:32] LABS: Basophils # 0.1 K/mm3 (0-0.2); Basophils % 0.5 % (0.1-2.0); Eosinophils # 0.1 K/mm3 (0.0-0.4); Eosinophils % 0.5 % (0.1-12.0); Hemoglobin 16.6 g/dL (14.1-18.0); Lymphocytes # 2.4 K/mm3 (0.7-4.5); Lymphocytes % 14.5 % (10-50); Mean Corpuscular HGB Conc 31.2 g/dL (31.8-35.4); Mean Corpuscular Volume 84.2 fl (80-94); Mean Platelet Volume 8.5 fl (7.4-10.4); Monocytes # 0.9 K/mm3 (0.1-1.0); Monocytes % 5.3 % (1.7-9.3); Neutrophils # 13.1 K/mm3 (1.8-7.8); Neutrophils % 79.3 % (37.0-80.0); Platelet Count 161 K/mm3 (142-424); Red Cell Distribution Width 17.3 % (11.5-17.5); White Blood Count 16.5 K/mm3 (4.8-10.8)
[2018-11-28 01:45] LABS: Alanine Aminotransferase 21 U/L (12-78); Albumin Level 3.2 gm/dL (3.4-5.0); Albumin/Globulin Ratio 0.8 (1.1-1.8); Alkaline Phosphatase 101 U/L (46-116); Anion Gap 12.7 mEq/L (5-15); Aspartate Amino Transferase 15 U/L (15-37); Bilirubin,Total 0.6 mg/dL (0.2-1.0); Blood Urea Nitrogen 71 mg/dL (7-18); C-Reactive Protein 4.4 mg/L (0.0-0.9); Carbon Dioxide 31 mmol/L (21.0-32.0); Chloride 89 mmol/L (98-107); Globulin 4.1 gm/dl (1.3-3.2); Glucose 134 mg/dL (74-106); Sodium 126 mmol/L (136-145); Total Protein,Serum 7.3 gm/dL (6.4-8.2)
[2018-11-28 01:50] LABS: Bacteria,Urine Trace /lpf; WBC,Urine Occasional #/hpf (0-3)
[2018-11-28 02:14] LABS: Hypochromasia 2+; Lymphocytes % 13 % (10-50); Monocytes % 5 % (2-9); Neutrophils % 82 % (42-76); Total Cells Counted 100
[2018-11-28 02:16] LABS: Erythrocyte Sedimentation Rate 1 mm/hr (0-20)
--- NOTE | 2018-11-28 02:50 | Emergency Department Note ---
ED Disposition Clinical Impression: HCAP (healthcare-associated pneumonia), Acute hyperkalemia, Chronic diastolic CHF (congestive heart failure), NYHA class 3, Pacemaker, Hyponatremia, Urinary retention, Severe sepsis Acute on chronic renal failure Qualifiers: Acute renal failure type: unspecified Chronic kidney disease stage: stage 4 (severe) Qualified Code(s): N17.9 - Acute kidney failure, unspecified; N18.4 - Chronic kidney disease, stage 4 (severe) Disposition: Admitted As Inpatient Condition on Discharge: Serious Referrals: Sharan Tariq MD [Primary Care Provider] - - Critical Care Critical Care Time: No Attestation: On 11/28/18, the high probability of a clinically significant, sudden or life threatening deterioration of the following system(s) required my full and direct attention, intervention and personal management. The time I documented below is in addition to time spent performing reported procedures but includes the following listed in this critical care notation. Medical Decision Making - Medical Records Medical records reviewed: Yes: I reviewed the patient's medical records. - [place] Inquiry Pt receiving controlled substance: No Vital Signs: 11/28/18 01:01 11/28/18 01:15 11/28/18 01:31 Temperature 0 F L 99.4 F Temperature Source Oral Rectal Pulse Rate 82 Pulse Rate [Right] 80 Respiratory Rate 20 Blood Pressure [Right Arm] 96/51 L Blood Pressure Mean [Right Arm] 66 02 Sat by Pulse Oximetry 97 Oxygen Delivery Method Oxygen Flow Rate (LPM) 11/28/18 01:38 11/28/18 03:00 Temperature Temperature Source Pulse Rate Pulse Rate [Right] 80 81 Respiratory Rate 26 H 20 Blood Pressure [Right Arm] 104/55 L 116/63 Blood Pressure Mean [Right Arm] 71 80 02 Sat by Pulse Oximetry 90 L 90 L Oxygen Delivery Method Nasal Cannula Nasal Cannula Oxygen Flow Rate (LPM) 1 1 - Lab Data Lab results reviewed: Yes: I reviewed the patient's lab results. Lab Results 11/28/18 01:10: Urine Color Yellow, Urine Appearance Clear, Urine pH 6.0, Ur Specific [place] 1.015, Urine Protein Negative, Urine Glucose (UA) Negative, Urine Ketones Negative, Urine Blood Negative, Urine Nitrate Negative, Urine Bilirubin Negative, Urine Urobilinogen 0.2, Ur Leukocyte Esterase Negative, Urine WBC Occasional, Urine Bacteria Trace 11/28/18 01:15: WBC 16.5 H, RBC 6.30 H, Hgb 16.6, Hct 53.0 H, MCV 84.2, MCH 26.3 L, MCHC 31.2 L, RDW 17.3, Plt Count 161, MPV 8.5, Neut % (Auto) 79.3, Lymph % (Auto) 14.5, [place] % (Auto) 5.3, Eos % (Auto) 0.5, Baso % (Auto) 0.5, Neut # (Auto) 13.1 H, Lymph # (Auto) 2.4, [place] # (Auto) 0.9, Eos # (Auto) 0.1, Baso # (Auto) 0.1, Total Counted 100, Neutrophils % (Manual) 82 H, Lymphocytes % (Manual) 13, Monocytes % (Manual) 5, Platelet Estimate Normal, Hypochromasia 2+, ESR 1 11/28/18 01:15: Sodium 126 L, Potassium 6.7 H*, Chloride 89 L, Carbon Dioxide 31, Anion Gap 12.7, BUN 71 H, Creatinine 2.51 H, Estimated Creat Clear 32, Estimated GFR 25 L, Est GFR ( Amer) 30 L, Glucose 134 H, Calcium 9.0, Total Bilirubin 0.6, AST 15, ALT 21, Alkaline Phosphatase 101, Troponin I < 0.02, C-Reactive Protein 4.4 H, Total Protein 7.3, Albumin 3.2 L, Globulin 4.1 H , Albumin/Globulin Ratio 0.8 L 11/28/18 01:15: B-Natriuretic Peptide 25 11/28/18 01:15: Lactate 1.0 Result diagrams: 11/28/18 01:15 11/28/18 01:15 Orders (Tests/Meds): ED MEDICATIONS Generic Name Dose Route Start Last Admin Trade Name Freq PRN Reason Stop Dose Admin Sodium Chloride 1,000 mls @ 999 mls/hr 11/28/18 01:00 11/28/18 01:27 Sod Chlor 0.9% 1000ml Bag IV 11/28/18 02:00 Not Given .Q1H1M PATRICK Discontinued Medications Generic Name Dose Route Start Last Admin Trade Name Freq PRN Reason Stop Dose Admin Albuterol/Ipratropium 3 ml 11/28/18 00:55 11/28/18 01:00 Duoneb 3ml Neb IH 11/28/18 00:56 3 ml ONCE ONE Administration Dextrose 50 ml 11/28/18 03:12 Dextrose 50% 50ml Syringe IVP 11/28/18 03:13 ONCE ONE Insulin Human Regular 5 unit 11/28/18 03:12 Humulin R Insulin 100 Units/Ml 10ml Vial IVP 11/28/18 03:13 ONCE ONE Methylprednisolone Sodium Succinate 125 mg 11/28/18 00:55 11/28/18 01:37 Solu-Medrol 125mg/2ml Vial IV 11/28/18 00:56 125 mg ONCE ONE Administration ORDERS Category Date Time Status CT head/brain wo con Stat Cat Scan 11/28/18 00:54 Ordered XR chest portable Stat Exams 11/28/18 00:52 Ordered Blood Culture Stat Micro 11/28/18 01:15 Received Arterial Blood Gas Routine RT 11/28/18 01:07 Received 12-lead EKG Request [ECG Request by /Jaime] Stat Y 11/28/18 00:52 Ordered - Radiology Data #1 Image(s): Chest Image Reviewed: Yes I reviewed the patient's radiology image Preliminary Findings: Abnormal (bilat changes/chf) - CT Data CT Scan: Head Time Received: 03:[address] Reviewed: Yes: I have viewed the radiologist's interpretation Preliminary Findings: Normal/NAD - ECG Data Tracing #1 Arrhythmias present: other (pacemaker) Pacemaker function: normal pacer function Resp/SOB HPI - General Chief Complaint: Shortness of Breath/Dyspnea Stated Complaint: SOA,weakness, urinary retention Time Seen by Provider: 11/28/18 01:20 Mode of Arrival: EMS Source of Information: Patient, EMS, Medical Record Limitations: Physical Limitations Description of Symptoms (Recalled from ER Triage Doc. by RN): Pt brought in for SOA, urinary retention and weakness. PT is very lethargic and will only answer yes or no questions. - History of Present Illness pt sent from home for sob and cough and altered mental status - pt unable to give specific hx MD Complaint: shortness of breath Onset (ago): hour(s) Severity: moderate Known history of: COPD, congestive heart failure Associated symptoms: denies other symptoms Treatment prior to arrival: bronchodilator - Related Data Home oxygen amount: 2 liters Home Medications Medication Instructions Recorded Confirmed Aspirin [Aspirin 81mg EC Tab] 81 mg PO DAILY 04/14/18 06/01/19 Tamsulosin HCl [Flomax 0.4mg 0.4 mg PO HS 05/05/18 11/16/18 capsule] Fluticasone/Umeclidin/Vilanter 1 puff IH DAILY 05/07/18 11/16/18 [Trelerach Ellipta 100-62.5-25] Spironolactone 25 mg PO DAILY 06/26/18 11/16/18 Potassium Chloride 20 meq PO DAILY 08/21/18 11/16/18 predniSONE [Deltasone 20mg 10 mg PO DAILY 09/23/18 11/16/18 tablet] Omeprazole [Omeprazole 20mg 20 mg PO DAILY 10/10/18 11/16/18 Capsule] Propranolol HCl 10 mg PO BID 11/16/18 11/16/18 Previous Rx's Medication Instructions Recorded Furosemide [Lasix 40mg tablet] 40 mg PO BIDL #0 10/12/18 Hydrocod/Acet 5/325 mg [[place] 1 tab PO Q8HP PRN #90 tab 10/12/18 5/325mg tablet] Albuterol Sulfate [Proventil-HFA 1 - 2 puffs IH Q6HP PRN #1 inh 11/16/18 90mcg/puff Inh] levoFLOXacin [Levaquin 500mg 500 mg PO DAILY #7 tab 11/16/18 tab] methylPREDNISolone [Medrol 4mg 4 mg PO DIRECTED #21 tab 11/16/18 tab] Allergies Allergy/AdvReac Type Severity Reaction Status Date / Time No Known Allergies Allergy Verified 10/10/18 13:35 [facility] History - Hepatitis A Screen Drug use history?: No High risk sexual behaviors?: No History of sexually transmitted infection?: No Currently employed?: No Childcare worker?: No Do you have indoor plumbing?: Yes Do you have electricity?: Yes Attestation statement:: This patient has been screened for Hepatitis A risk factors. I have reviewed the patient's past medical history: Yes Medical History: Reports:: Arrhythmia, Asthma, Atrial Fibrillation, Congestive Heart Failure, Chronic Obstructive Pulmonary Disease (COPD), Home Oxygen, Hypertension, Internal Pacemaker, Lung Disease, Kidney Stones, Myocardial Infarction Denies:: Cancer, Diabetes Mellitus Type 1, Diabetes Mellitus Type 2, MRSA Other Medical History: Reports: Arthritis Comment: Cardiac ablation for atrial fibrillation Laterality Cases: Right: Arthroscopy Knee, Bilateral: Other Other Surgeries: Yes: Hernia Repair (X2), Pacemaker, Other (shoulder surgery) Amputation: No Fractures: No - Social History Smoking Status: Former smoker Tobacco Type: cigarettes # Packs/Day (cigarettes): 1 #Yrs smoked (if former smoker): 50 Alcohol Intake: never Alcohol Intake Frequency:: other Substance Use Type: denies use Occupational Status: retired, disabled Housing: house Household Members: spouse - Psychiatric History Expresses thoughts of harming self/others: None Suicide Plan Description: No Plan Family Hx:: Asthma, Cancer, Coronary Artery Disease, Hyperlipidemia, Hypertension ROS Obtained: Yes unobtainable due to mental status Physical Exam - General General appearance: obtunded, other (arousable ) - Head Head exam: atraumatic - Eye Eye exam: Present: PERRL, EOMI. Absent: scleral icterus - ENT ENT exam: Present: mucous membranes dry - Neck Neck exam: Present: trachea midline - Respiratory Respiratory exam: Present: other (dec bs bilat ). Absent: respiratory distress - Cardiovascular Cardiovascular exam: Present: regular rate, systolic murmur, +S4 - Abdominal Exam Abdominal exam: Present: soft - Extremities Exam Extremities exam: Present: pedal edema - Neurological Exam Neurological exam: Present: other (no posturing and no focal changes ) - Skin Skin exam: Absent: rash
[2018-11-28 06:08] LABS: Basophils % 0.1 % (0.1-2.0); Eosinophils % 0.1 % (0.1-12.0); Hematocrit 54.5 % (42.0-52.0); Hemoglobin 17.5 g/dL (14.1-18.0); Lymphocytes # 1.4 K/mm3 (0.7-4.5); Lymphocytes % 7.7 % (10-50); Mean Corpuscular HGB Conc 32.1 g/dL (31.8-35.4); Mean Corpuscular Volume 84.5 fl (80-94); Mean Platelet Volume 8.2 fl (7.4-10.4); Monocytes # 0.8 K/mm3 (0.1-1.0); Monocytes % 4.6 % (1.7-9.3); Neutrophils # 15.4 K/mm3 (1.8-7.8); Neutrophils % 87.5 % (37.0-80.0); Platelet Count 150 K/mm3 (142-424); Red Blood Count 6.46 M/mm3 (4.60-6.20); Red Cell Distribution Width 17.2 % (11.5-17.5); White Blood Count 17.6 K/mm3 (4.8-10.8)
[2018-11-28 06:19] LABS: ABG PH 7.32 mmol/L (7.35-7.45)
[2018-11-28 06:20] LABS: ABG Base Excess 2.3 mmol/L (-2.4-2.3); ABG HCO3 28.4 mmhg (22.0-26.0); ABG Oxygen Saturation 98 % (90-100); ABG PO2 113.1 mmhg (80-100); ABG TCO2 30.2 mmhg (23-27)
[2018-11-28 06:21] LABS: Allen's Test ACCEPTABLE; Oxygen 1.5 LPM %
[2018-11-28 06:44] LABS: Anion Gap 11.1 mEq/L (5-15); Blood Urea Nitrogen 71 mg/dL (7-18); Calcium 9.2 mg/dL (8.5-10.1); Carbon Dioxide 32 mmol/L (21.0-32.0); Chloride 91 mmol/L (98-107); Glucose 130 mg/dL (74-106); Sodium 128 mmol/L (136-145)
--- NOTE | 2018-11-28 07:26 | History & Physical Report ---
*Admission Date: 11/28/18 *Chief complaint: Patient sent from home with weakness *History of present illness: 77-year-old male with end-stage COPD and history of diastolic heart failure presented to the emergency department overnight after being sent from home due to profound weakness. This morning patient cannot provide any history as he does not recall what led to him coming to the emergency department. History comes primarily from the ER note. Work-up revealed acute kidney injury with hyperkalemia. Chest x-ray was felt to possibly show pneumonia. Patient was admitted on broad-spectrum antibiotic coverage. He was given gentle IV fluid hydration due to the hyperkalemia. Attempt was made to place an NG likely so patient could be given Kayexalate but this could not be accomplished. This morning patient denies any worsening shortness of breath. He lives at home with his and has had several ER visits recently over weakness. Patient is currently under hospice care for his COPD. [facility] History I have reviewed the patient's past medical history: Yes Medical History: Reports:: Arrhythmia, Asthma, Atrial Fibrillation, Congestive Heart Failure, Chronic Obstructive Pulmonary Disease (COPD), Coronary Artery Disease, Home Oxygen, Hyperlipidemia, Hypertension, Internal Pacemaker, Lung Disease, Kidney Stones, Myocardial Infarction Denies:: Cancer, Diabetes Mellitus Type 1, Diabetes Mellitus Type 2, MRSA *Have you ever received a pneumonia vaccine?: Yes (UNABLE TO DETERMENT R/T MENTAL STATUS) *Have you received a flu vaccine this season?: Yes (UNABLE TO DETERMINE R/T MEN VAIBHAV STATUS) Other Medical History: Reports: Arthritis Laterality Cases: Right: Arthroscopy Knee, Bilateral: Other Other Surgeries: Yes: Hernia Repair (X2), Pacemaker, Other (shoulder surgery) Amputation: No Fractures: No - *Social History Smoking Status: Former smoker Tobacco Type: cigarettes # Packs/Day (cigarettes): 1 #Yrs smoked (if former smoker): 50 Alcohol Intake: never Alcohol Intake Frequency:: other Substance Use Type: denies use *Occupational Status:: retired, disabled Housing: house Household Members: spouse *Travel in the last 8 weeks: None - Psychiatric History Expresses thoughts of harming self/others: None Suicide Plan Description: No Plan Family Hx:: Asthma, Cancer, Coronary Artery Disease, Hyperlipidemia, Hypertension Review of Systems - Review of Systems Review of systems:: unable to obtain Meds Home Medications Medication Instructions Recorded Confirmed Type Aspirin [Aspirin 81mg EC Tab] 81 mg PO DAILY 09/29/17 11/16/18 History Tamsulosin HCl [Flomax 0.4mg 0.4 mg PO HS 05/05/18 11/16/18 History capsule] Fluticasone/Umeclidin/Vilanter 1 puff IH DAILY 05/07/18 11/16/18 History [[place]y Ellipta 100-62.5-25] Spironolactone 25 mg PO DAILY 06/26/18 11/16/18 History Potassium Chloride 20 meq PO DAILY 08/21/18 11/16/18 History predniSONE [Deltasone 20mg 10 mg PO DAILY 09/23/18 11/16/18 History tablet] Omeprazole [Omeprazole 20mg 20 mg PO DAILY 10/10/18 11/16/18 History Capsule] Furosemide [Lasix 40mg tablet] 40 mg PO BIDL #0 10/12/18 11/16/18 Rx Hydrocod/Acet 5/325 mg [[place] 1 tab PO Q8HP PRN #90 tab 10/12/18 11/16/18 Rx 5/325mg tablet] Albuterol Sulfate [Proventil-HFA 1 - 2 puffs IH Q6HP PRN #1 inh 11/16/18 Rx 90mcg/puff Inh] Propranolol HCl 10 mg PO BID 11/16/18 11/16/18 History levoFLOXacin [Levaquin 500mg 500 mg PO DAILY #7 tab 11/16/18 Rx tab] methylPREDNISolone [Medrol 4mg 4 mg PO DIRECTED #21 tab 11/16/18 Rx tab] Allergies Allergy/AdvReac Type Severity Reaction Status Date / Time No Known Allergies Allergy Verified 10/10/18 13:35 Exam Vital signs and Labs for Last 24 Hours: Temp Pulse Resp BP Pulse Ox 98.9 F 79 14 92/64 L 88 L 11/28/18 05:10 11/28/18 06:20 11/28/18 06:20 11/28/18 06:20 11/28/18 06:20 Laboratory Results - last 24 hr 11/28/18 01:07: Specimen Source L radial, O2 % 1.5 lpm, ABG pH 7.32 L, ABG pCO2 57.0 H, ABG pO2 113.1 H, ABG HCO3 28.4 H, ABG Total CO2 30.2 H, ABG O2 Saturation 98, ABG Base Excess 2.3, Tera Test Acceptable 11/28/18 01:10: Urine Color Yellow, Urine Appearance Clear, Urine pH 6.0, Ur Specific [place] 1.015, Urine Protein Negative, Urine Glucose (UA) Negative, Urine Ketones Negative, Urine Blood Negative, Urine Nitrate Negative, Urine Bilirubin Negative, Urine Urobilinogen 0.2, Ur Leukocyte Esterase Negative, Urine WBC Occasional, Urine Bacteria Trace 11/28/18 01:15: WBC 16.5 H, RBC 6.30 H, Hgb 16.6, Hct 53.0 H, MCV 84.2, MCH 26.3 L, MCHC 31.2 L, RDW 17.3, Plt Count 161, MPV 8.5, Neut % (Auto) 79.3, Lymph % (Auto) 14.5, [place] % (Auto) 5.3, Eos % (Auto) 0.5, Baso % (Auto) 0.5, Neut # (Auto) 13.1 H, Lymph # (Auto) 2.4, [place] # (Auto) 0.9, Eos # (Auto) 0.1, Baso # (Auto) 0.1, Total Counted 100, Neutrophils % (Manual) 82 H, Lymphocytes % (Manual) 13, Monocytes % (Manual) 5, Platelet Estimate Normal, Hypochromasia 2+, ESR 1 11/28/18 01:15: Sodium 126 L, Potassium 6.7 H*, Chloride 89 L, Carbon Dioxide 31, Anion Gap 12.7, BUN 71 H, Creatinine 2.51 H, Estimated Creat Clear 32, Estimated GFR 25 L, Est GFR ( Amer) 30 L, Glucose 134 H, Calcium 9.0, Total Bilirubin 0.6, AST 15, ALT 21, Alkaline Phosphatase 101, Troponin I < 0.02, C-Reactive Protein 4.4 H, Total Protein 7.3, Albumin 3.2 L, Globulin 4.1 H , Albumin/Globulin Ratio 0.8 L 11/28/18 01:15: B-Natriuretic Peptide 25 11/28/18 01:15: Lactate 1.0 11/28/18 05:53: WBC 17.6 H, RBC 6.46 H, Hgb 17.5, Hct 54.5 H, MCV 84.5, MCH 27.1, MCHC 32.1, RDW 17.2, Plt Count 150, MPV 8.2, Neut % (Auto) 87.5 H, Lymph % (Auto) 7.7 L, [place] % (Auto) 4.6, Eos % (Auto) 0.1, Baso % (Auto) 0.1, Neut # (Auto) 15.4 H, Lymph # (Auto) 1.4, [place] # (Auto) 0.8, Eos # (Auto) 0.0, Baso # (Auto) 0.0 11/28/18 05:53: Sodium 128 L, Potassium 6.1 H*, Chloride 91 L, Carbon Dioxide 32, Anion Gap 11.1, BUN 71 H, Creatinine 2.48 H, Estimated Creat Clear 32, Estimated GFR 25 L, Est GFR ( Amer) 31 L, Glucose 130 H, Calcium 9.2, Troponin I < 0.02 I & O for Last 24 hours: Intake & Output 11/25/18 11/26/18 11/27/18 11/28/18 11:59 11:59 11:59 11:59 Output Total 1125 / 1125 Balance -1125 / -1125 Weight 199 lb 6 oz Narrative: Patient is sitting up in the bed and the nasal cannula is directed into his mouth. Rhonchi can be heard at bedside. Patient appears to be asleep but will awaken and answer questions with brief sentences. Compared to previous visits patient has noticeably lost weight and looks weaker. Oropharynx is dry. Neck is without lymphadenopathy or carotid bruits. Lungs have diffuse rhonchi which is his baseline. Heart has a regular rhythm in telemetry would indicate a paced rhythm. Abdomen is soft. Extremities have trace lower extremity edema which is significant improvement compared to his last office visit about a month ago. Assessment and Plan (1) Acute hyperkalemia Current visit: Yes Status: Acute Category: Medical Code(s): E87.5 - Hyperkalemia (2) Acute on chronic renal failure Current visit: Yes Status: Acute Qualifiers: Acute renal failure type: unspecified Chronic kidney disease stage: stage 4 (severe) Qualified Code(s): N17.9 - Acute kidney failure, unspecified; N18.4 - Chronic kidney disease, stage 4 (severe) Category: Medical Code(s): N17.9 - Acute kidney failure, unspecified; N18.9 - Chronic kidney disease, unspecified (3) Cardiac pacemaker in situ Current visit: Yes Status: Chronic Category: Medical Code(s): Z95.0 - Presence of cardiac pacemaker (4) COPD (chronic obstructive pulmonary disease) Current visit: No Status: Chronic Qualifiers: Category: Medical Code(s): J44.9 - Chronic obstructive pulmonary disease, unspecified - Assessment and plan all Dx Assessment and Plan for all problems:: 1. Patient will be given IV fluids and duo nebS to lower his potassium. Potassium has decreased slightly since admission. If patient becomes more awake and alert he could be given oral Kayexalate. 2. COPD essentially seems to be at baseline. Lung exam is unchanged from prior visits and his chest x-ray does not show any new infiltrates. Hospice but will be made aware of patient's admission. He will be kept on broad-spectrum antibi otics and sputum cultures been ordered. Patient has history of Pseudomonas in his sputum. 3. Patient's prognosis is poor and compared to previous visit his health is declining. We will make hospice aware. I am not sure patient is appropriate to return home as he has had several ER visits recently that are usually triggered by family because of patient's weakness. They may have poor understanding of his disease process.
--- NOTE | 2018-11-28 07:29 | Pharmacy Consult Notes ---
[facility] Pharmacy VTE Monitoring - Patient Demographics Admission date: 11/28/18 Report Date: 11/28/18 Time: 07:29 Allergies/Adverse Reactions: Patient Allergies No Known Allergies Allergy (Verified 10/10/18 13:35) Height: 1.78 m Weight: 90.435 kg Patient Problems: Current Active Problems (Updated 11/28/18 @ 03:59 by Adis Alford MD) HCAP (healthcare-associated pneumonia) (Acute) Acute hyperkalemia (Acute) Acute on chronic renal failure (Acute) Hyponatremia (Acute) Urinary retention (Acute) Severe sepsis (Acute) Chronic diastolic CHF (congestive heart failure), NYHA class 3 (Chronic) Cardiac pacemaker in situ (Chronic) - VTE Risk Labs: VTE Related Lab Results Hgb 17.5 g/dL (14.1-18.0) 11/28/18 05:53 Hct 54.5 % (42.0-52.0) H 11/28/18 05:53 Plt Count 150 K/mm3 (142-424) 11/28/18 05:53 BUN 71 mg/dL (7-18) H 11/28/18 05:53 Creatinine 2.48 mg/dL (0.70-1.30) H 11/28/18 05:53 Estimated Creat Clear 32 mL/min (50-200) 11/28/18 05:53 VTE Score: 8 VTE Risk Level: Moderate Risk - Prophylaxis VTE Prophylaxis Ordered?: Yes Types of VTE Prophylaxis: TEDS Knee High Location of Applied Device: Bilateral Lower Extremeties - VTE Diagnosis Confirmed Treatment or plan recommended: Continue Current Treatment
--- NOTE | 2018-11-28 08:39 | Pharmacy Consult Notes ---
- Pharmacy Consult Date: 11/28/18 Time: 08:38 Referring provider: DR. BLANCO Reason for Consult:: VANCOMYCIN DOSING Allergies and ADEs:: Allergies Allergy/AdvReac Type Severity Reaction Status Date / Time No Known Allergies Allergy Verified 10/10/18 13:35 Home Medications:: Home Medications Medication Instructions Recorded Confirmed Type Aspirin [Aspirin 81mg EC Tab] 81 mg PO DAILY 09/29/17 11/16/18 History Tamsulosin HCl [Flomax 0.4mg 0.4 mg PO HS 05/05/18 11/16/18 History capsule] Fluticasone/Umeclidin/Vilanter 1 puff IH DAILY 05/07/18 11/16/18 History [Trelerach Ellipta 100-62.5-25] Spironolactone 25 mg PO DAILY 06/26/18 11/16/18 History Potassium Chloride 20 meq PO DAILY 08/21/18 11/16/18 History predniSONE [Deltasone 20mg 10 mg PO DAILY 09/23/18 11/16/18 History tablet] Omeprazole [Omeprazole 20mg 20 mg PO DAILY 10/10/18 11/16/18 History Capsule] Furosemide [Lasix 40mg tablet] 40 mg PO BIDL #0 10/12/18 11/16/18 Rx Hydrocod/Acet 5/325 mg [[place] 1 tab PO Q8HP PRN #90 tab 10/12/18 11/16/18 Rx 5/325mg tablet] Albuterol Sulfate [Proventil-HFA 1 - 2 puffs IH Q6HP PRN #1 inh 11/16/18 Rx 90mcg/puff Inh] Propranolol HCl 10 mg PO BID 11/16/18 11/16/18 History levoFLOXacin [Levaquin 500mg 500 mg PO DAILY #7 tab 11/16/18 Rx tab] methylPREDNISolone [Medrol 4mg 4 mg PO DIRECTED #21 tab 11/16/18 Rx tab] Height: 1.78 m Weight: 90.435 kg Laboratory Results:: Laboratory Results - last 24 hr 11/28/18 01:07: Specimen Source L radial, O2 % 1.5 lpm, ABG pH 7.32 L, ABG pCO2 57.0 H, ABG pO2 113.1 H, ABG HCO3 28.4 H, ABG Total CO2 30.2 H, ABG O2 Saturation 98, ABG Base Excess 2.3, Tera Test Acceptable 11/28/18 01:10: Urine Color Yellow, Urine Appearance Clear, Urine pH 6.0, Ur Specific [place] 1.015, Urine Protein Negative, Urine Glucose (UA) Negative, Urine Ketones Negative, Urine Blood Negative, Urine Nitrate Negative, Urine Bilirubin Negative, Urine Urobilinogen 0.2, Ur Leukocyte Esterase Negative, Urine WBC Occasional, Urine Bacteria Trace 11/28/18 01:15: WBC 16.5 H, RBC 6.30 H, Hgb 16.6, Hct 53.0 H, MCV 84.2, MCH 26.3 L, MCHC 31.2 L, RDW 17.3, Plt Count 161, MPV 8.5, Neut % (Auto) 79.3, Lymph % (Auto) 14.5, [place] % (Auto) 5.3, Eos % (Auto) 0.5, Baso % (Auto) 0.5, Neut # (Auto) 13.1 H, Lymph # (Auto) 2.4, [place] # (Auto) 0.9, Eos # (Auto) 0.1, Baso # (Auto) 0.1, Total Counted 100, Neutrophils % (Manual) 82 H, Lymphocytes % (Manual) 13, Monocytes % (Manual) 5, Platelet Estimate Normal, Hypochromasia 2+, ESR 1 11/28/18 01:15: Sodium 126 L, Potassium 6.7 H*, Chloride 89 L, Carbon Dioxide 31, Anion Gap 12.7, BUN 71 H, Creatinine 2.51 H, Estimated Creat Clear 32, Estimated GFR 25 L, Est GFR ( Amer) 30 L, Glucose 134 H, Calcium 9.0, Total Bilirubin 0.6, AST 15, ALT 21, Alkaline Phosphatase 101, Troponin I < 0.02, C-Reactive Protein 4.4 H, Total Protein 7.3, Albumin 3.2 L, Globulin 4.1 H , Albumin/Globulin Ratio 0.8 L 11/28/18 01:15: B-Natriuretic Peptide 25 11/28/18 01:15: Lactate 1.0 11/28/18 05:53: WBC 17.6 H, RBC 6.46 H, Hgb 17.5, Hct 54.5 H, MCV 84.5, MCH 27.1, MCHC 32.1, RDW 17.2, Plt Count 150, MPV 8.2, Neut % (Auto) 87.5 H, Lymph % (Auto) 7.7 L, [place] % (Auto) 4.6, Eos % (Auto) 0.1, Baso % (Auto) 0.1, Neut # (Auto) 15.4 H, Lymph # (Auto) 1.4, [place] # (Auto) 0.8, Eos # (Auto) 0.0, Baso # (Auto) 0.0 11/28/18 05:53: Sodium 128 L, Potassium 6.1 H*, Chloride 91 L, Carbon Dioxide 32, Anion Gap 11.1, BUN 71 H, Creatinine 2.48 H, Estimated Creat Clear 32, Estimated GFR 25 L, Est GFR ( Amer) 31 L, Glucose 130 H, Calcium 9.2, Troponin I < 0.02 Medical History: Reports:: Arrhythmia, Asthma, Atrial Fibrillation, Congestive Heart Failure, Chronic Obstructive Pulmonary Disease (COPD), Coronary Artery Disease, Home Oxygen, Hyperlipidemia, Hypertension, Internal Pacemaker, Lung Disease, Kidney Stones, Myocardial Infarction Denies:: Cancer, Diabetes Mellitus Type 1, Diabetes Mellitus Type 2, MRSA Assessment and Plan (1) Acute hyperkalemia Current visit: Yes Status: Acute Category: Medical Code(s): E87.5 - Hyperkalemia (2) Acute on chronic renal failure Current visit: Yes Status: Acute Qualifiers: Acute renal failure type: unspecified Chronic kidney disease stage: stage 4 (severe) Qualified Code(s): N17.9 - Acute kidney failure, unspecified; N18.4 - Chronic kidney disease, stage 4 (severe) Category: Medical Code(s): N17.9 - Acute kidney failure, unspecified; N18.9 - Chronic kidney disease, unspecified (3) Cardiac pacemaker in situ Current visit: Yes Status: Chronic Category: Medical Code(s): Z95.0 - Presence of cardiac pacemaker (4) COPD (chronic obstructive pulmonary disease) Current visit: No Status: Chronic Qualifiers: Category: Medical Code(s): J44.9 - Chronic obstructive pulmonary disease, unspecified - Assessment and plan all Dx Assessment and Plan for all problems:: BASED ON PATIENT FACTORS, RECOMMEND VANCOMYCIN 1750 MG IV ONCE, FOLLOWED BY VANCOMYCIN 1500 MG IV Q36H. PHARMACY WILL FOLLOW DAILY AND ADJUST APPROPRIATE.
--- NOTE | 2018-11-28 10:15 | Cardiology Report ---
PROCEDURE: 2-D M-mode and color Doppler study INDICATIONS FOR THE TEST: Chest pain COPD+ Heart Murmur Tobacco Smoking Palpitations Fatigue Syncope Edema Hypertension+Diabetes Mellitus Rheumatic Fever SOB+ROSALES Obesity Hyperlipidemia+ Family History HD Additional History CHF, PACER, CRF, ASTHMA, AFIB, HOME O2, [place], [place] PATIENT INFORMATION HEIGHT: 70 WEIGHT:200 GENDER: Male B/P:96/51 2-D/M-MODE INTERPRETATION: 2-D MEASUREMENTS OBSERVED VALUES IN CMS Right Ventricular Dimension (RVDd) 2.5 Interventricular Septum (Thickness)(IVsd) 1.2 Left Ventricular Internal Dimensions(LVIDd) 4.6 Left Ventricular Posterior Wall (Thickness)(LVPWd) 1.1 Aortic Root 3.3 Aortic Cusp Separation 1.9 Left Atrial Dimensions (LAD) 2.5 2D 1. Left atrium is normal size, left ventricle is normal size, mild concentric left ventricular hypertrophy, visually estimated ejection fraction approximately 45-50%, there is abnormal septal motion. 2. The right atrium and right ventricle are mildly enlarged with normal contractility, there is a pacemaker lead seen right atrium and right ventricle. 3. The aortic valve is minimally thickened and fibrosed leaflet continue to display good mobility. 4. The mitral and tricuspid valve leaflets are grossly normal. 5. The pulmonic valve is poorly visualized. 6. No significant pericardial effusion noted. DOPPLER INTERROGATION: Doppler interrogation of the aortic, mitral and tricuspid valvular presence of mild mitral and tricuspid regurgitation, calculated right ventricular systolic pressure is 48 mmHg consistent with moderate pulmonary hypertension, inferior vena cava is not well visualized, diastolic parameters are inconclusive. CONCLUSION: 1. Normal left ventricular size, visually estimated ejection fraction 45-50% with abnormal septal motion. Diastolic parameters are inconclusive. 2. Mildly enlarged right ventricle with normal contractility. 3. Mild mitral and tricuspid regurgitation, calculated right ventricular systolic pressure is 48 mmHg consistent with moderate pulmonary hypertension. Inferior vena cava is not well visualized. 4. No significant pericardial effusion noted.
--- NOTE | 2018-11-28 14:19 | Discharge Summary ---
General - General Admission date:: 11/28/18 Discharge date: 11/28/18 HPI HPI: 77-year-old male with end-stage COPD and history of diastolic heart failure presented to the emergency department overnight after being sent from home due to profound weakness. This morning patient cannot provide any history as he does not recall what led to him coming to the emergency department. History comes primarily from the ER note. Work-up revealed acute kidney injury with hyperkalemia. Chest x-ray was felt to possibly show pneumonia. Patient was admitted on broad-spectrum antibiotic coverage. He was given gentle IV fluid hydration due to the hyperkalemia. Attempt was made to place an NG likely so patient could be given Kayexalate but this could not be accomplished. This morning patient denies any worsening shortness of breath. He lives at home with his and has had several ER visits recently over weakness. Patient is currently under hospice care for his COPD. Hospital Course Hospital Course: Patient was admitted and initially placed on broad spectrum ATB due to suspected pneumonia. CXR was read as negative for pneumonia and antibiotics were discontinued. Patient did have PATY w/ Hyperkalemmia and was started on IVF. Patient appeared weak and had noticeable weight loss compared to previous encounters. Patient is under the care of hospice and they were consulted due to patient decline. Hospice evaluated the patient and requested transfer [facility]. Patient was discharged to the care of the [facility] Objective Vital signs: Temp Pulse Resp BP Pulse Ox 98.2 F 80 20 101/68 L 95 11/28/18 12:00 11/28/18 12:00 11/28/18 12:00 11/28/18 12:00 11/28/18 12:00 Results Labs on day of discharge: Labs from last 24 hours 11/28/18 11/28/18 11/28/18 05:53 05:53 01:15 WBC 17.6 H RBC 6.46 H Hgb 17.5 Hct 54.5 H MCV 84.5 MCH 27.1 MCHC 32.1 RDW 17.2 Plt Count 150 MPV 8.2 Neut % (Auto) 87.5 H Lymph % (Auto) 7.7 L [place] % (Auto) 4.6 Eos % (Auto) 0.1 Baso % (Auto) 0.1 Neut # (Auto) 15.4 H Lymph # (Auto) 1.4 Vernon # (Auto) 0.8 Eos # (Auto) 0.0 Baso # (Auto) 0.0 Total Counted Neutrophils % (Manual) Lymphocytes % (Manual) Monocytes % (Manual) Platelet Estimate Hypochromasia ESR Specimen Source O2 % ABG pH ABG pCO2 ABG pO2 ABG HCO3 ABG Total CO2 ABG O2 Saturation ABG Base Excess Tera Test Sodium 128 L Potassium 6.1 H* Chloride 91 L Carbon Dioxide 32 Anion Gap 11.1 BUN 71 H Creatinine 2.48 H Estimated Creat Clear 32 Estimated GFR 25 L Est GFR ( Amer) 31 L Glucose 130 H Lactate 1.0 Calcium 9.2 Total Bilirubin AST ALT Alkaline Phosphatase Troponin I < 0.02 C-Reactive Protein B-Natriuretic Peptide Total Protein Albumin Globulin Albumin/Globulin Ratio Urine Color Urine Appearance Urine pH Ur Specific Corinne Urine Protein Urine Glucose (UA) Urine Ketones Urine Blood Urine Nitrate Urine Bilirubin Urine Urobilinogen Ur Leukocyte Esterase Urine WBC Urine Bacteria 11/28/18 11/28/18 11/28/18 01:15 01:15 01:15 WBC 16.5 H RBC 6.30 H Hgb 16.6 Hct 53.0 H MCV 84.2 MCH 26.3 L MCHC 31.2 L RDW 17.3 Plt Count 161 MPV 8.5 Neut % (Auto) 79.3 Lymph % (Auto) 14.5 Vernon % (Auto) 5.3 Eos % (Auto) 0.5 Baso % (Auto) 0.5 Neut # (Auto) 13.1 H Lymph # (Auto) 2.4 Vernon # (Auto) 0.9 Eos # (Auto) 0.1 Baso # (Auto) 0.1 Total Counted 100 Neutrophils % (Manual) 82 H Lymphocytes % (Manual) 13 Monocytes % (Manual) 5 Platelet Estimate Normal Hypochromasia 2+ ESR 1 Specimen Source O2 % ABG pH ABG pCO2 ABG pO2 ABG HCO3 ABG Total CO2 ABG O2 Saturation ABG Base Excess Tera Test Sodium 126 L Potassium 6.7 H* Chloride 89 L Carbon Dioxide 31 Anion Gap 12.7 BUN 71 H Creatinine 2.51 H Estimated Creat Clear 32 Estimated GFR 25 L Est GFR ( Amer) 30 L Glucose 134 H Lactate Calcium 9.0 Total Bilirubin 0.6 AST 15 ALT 21 Alkaline Phosphatase 101 Troponin I < 0.02 C-Reactive Protein 4.4 H B-Natriuretic Peptide 25 Total Protein 7.3 Albumin 3.2 L Globulin 4.1 H Albumin/Globulin Ratio 0.8 L Urine Color Urine Appearance Urine pH Ur Specific Corinne Urine Protein Urine Glucose (UA) Urine Ketones Urine Blood Urine Nitrate Urine Bilirubin Urine Urobilinogen Ur Leukocyte Esterase Urine WBC Urine Bacteria 11/28/18 11/28/18 01:10 01:07 WBC RBC Hgb Hct MCV MCH MCHC RDW Plt Count MPV Neut % (Auto) Lymph % (Auto) Vernon % (Auto) Eos % (Auto) Baso % (Auto) Neut # (Auto) Lymph # (Auto) Vernon # (Auto) Eos # (Auto) Baso # (Auto) Total Counted Neutrophils % (Manual) Lymphocytes % (Manual) Monocytes % (Manual) Platelet Estimate Hypochromasia ESR Specimen Source L radial O2 % 1.5 lpm ABG pH 7.32 L ABG pCO2 57.0 H ABG pO2 113.1 H ABG HCO3 28.4 H ABG Total CO2 30.2 H ABG O2 Saturation 98 ABG Base Excess 2.3 Tera Test Acceptable Sodium Potassium Chloride Carbon Dioxide Anion Gap BUN Creatinine Estimated Creat Clear Estimated GFR Est GFR ( Amer) Glucose Lactate Calcium Total Bilirubin AST ALT Alkaline Phosphatase Troponin I C-Reactive Protein B-Natriuretic Peptide Total Protein Albumin Globulin Albumin/Globulin Ratio Urine Color Yellow Urine Appearance Clear Urine pH 6.0 Ur Specific Corinne 1.015 Urine Protein Negative Urine Glucose (UA) Negative Urine Ketones Negative Urine Blood Negative Urine Nitrate Negative Urine Bilirubin Negative Urine Urobilinogen 0.2 Ur Leukocyte Esterase Negative Urine WBC Occasional Urine Bacteria Trace DS: Diagnosis - Discharge Diagnosis (1) Acute on chronic renal failure Status: Acute (2) Acute hyperkalemia Status: Acute (3) Cardiac pacemaker in situ Status: Chronic (4) COPD (chronic obstructive pulmonary disease) Status: Chronic Discharge Plan - Patient Discharge Instructions ACTIVITY: Continue current activity DIET: continue same diet Patient Instructions: DI for Heart Failure, DI for Pneumonia -- Adult, DI for Hyperkalemia, DI for Sepsis -- Adult - Follow up Plan Disposition: Xfer Other Home Medications: Home Medications Medication Instructions Recorded Confirmed Type Aspirin [Aspirin 81mg EC Tab] 81 mg PO DAILY 09/29/17 11/28/18 History Tamsulosin HCl [Flomax 0.4mg 0.4 mg PO HS 05/05/18 11/28/18 History capsule] Fluticasone/Umeclidin/Vilanter 1 puff IH DAILY 05/07/18 11/28/18 History [Trelegy Ellipta 100-62.5-25] Spironolactone 25 mg PO DAILY 06/26/18 11/28/18 History Potassium Chloride 20 meq PO DAILY 08/21/18 11/28/18 History Omeprazole [Omeprazole 20mg 20 mg PO DAILY 10/10/18 11/28/18 History Capsule] Hydrocod/Acet 5/325 mg [[place] 1 tab PO Q8HP PRN #90 tab 10/12/18 11/28/18 Rx 5/325mg tablet] Albuterol Sulfate [Proventil-HFA 1 - 2 puffs IH Q6HP PRN #1 inh 11/16/18 11/28/18 Rx 90mcg/puff Inh] Propranolol HCl 10 mg PO BID 11/16/18 11/28/18 History Furosemide [Furosemide 40MG tAB] 40 mg PO Q6H 11/28/18 11/28/18 History Prescriptions/Medication Reconciliation: Continued Omeprazole [Omeprazole 20mg Capsule] 20 mg PO DAILY Propranolol HCl 10 mg PO BID Tamsulosin HCl [Flomax 0.4mg capsule] 0.4 mg PO HS Discontinued Spironolactone 25 mg PO DAILY Potassium Chloride 20 meq PO DAILY Hydrocod/Acet 5/325 mg [[place] 5/325mg tablet] 1 tab PO Q8HP PRN #90 tab PRN Reason: Mild To Moderate Pain Furosemide [Furosemide 40MG tAB] 40 mg PO Q6H No Action Aspirin [Aspirin 81mg EC Tab] 81 mg PO DAILY Fluticasone/Umeclidin/Vilanter [Trelegy Ellipta 100-62.5-25] 1 puff IH DAILY Albuterol Sulfate [Proventil-HFA 90mcg/puff Inh] 1 - 2 puffs IH Q6HP PRN #1 inh PRN Reason: Cough
== END 2018-11-28 15:40 | disposition hospice, inpatient (51) | DRG 683 ==
LOC: 2ND 00:50 → ER 00:50 → OBSVTOIN 05:05 → 2ND 05:11
PROVIDERS: ADMIT Emergency Medicine; ATTEND Family Medicine
DX: Z82.5 Family history of asthma and other chronic lower respiratory diseases; R33.9 Retention of urine, unspecified; Z87.891 Personal history of nicotine dependence; Z79.82 Long term (current) use of aspirin; Z80.9 Family history of malignant neoplasm, unspecified; I25.2 Old myocardial infarction; E87.1 Hypo-osmolality and hyponatremia; Z79.899 Other long term (current) drug therapy; Z83.438 Family history of other disorder of lipoprotein metabolism and other lipidemia; Z95.0 Presence of cardiac pacemaker; E87.5 Hyperkalemia; Z82.49 Family history of ischemic heart disease and other diseases of the circulatory system; Z87.442 Personal history of urinary calculi; Z79.52 Long term (current) use of systemic steroids; J44.9 Chronic obstructive pulmonary disease, unspecified; N17.9 Acute kidney failure, unspecified; I13.0 Hypertensive heart and chronic kidney disease with heart failure and stage 1 through stage 4 chronic kidney disease, or unspecified chronic kidney disease; Z99.81 Dependence on supplemental oxygen; N18.4 Chronic kidney disease, stage 4 (severe); I50.32 Chronic diastolic (congestive) heart failure
CPT/HCPCS: 36415; 70450; 71010; 71045; 80048; 80053; 81001; 82803; 83605; 83880; 84484; 85007; 85025; 85651; 86140; 87040; 93005; 93306; 94640; 96367; 96374; 96375; 99285; J1956; J2543; J3370